=== PATIENT | male | born 1940 | race Caucasian/White ===

== ENCOUNTER 2021-07-27 19:09 | Inpatient (IN) | payer BC, MEDICARE ==
[2021-07-27] MEDS ORDERED: SODIUM CHLORIDE 0.9% 1,000 ML IV STA (19:29)
--- NOTE | 2021-07-27 19:34 | ED ---
General Adult HPI - General Chief complaint: Nausea/Vomiting/Diarrhea Stated complaint: Covid +, SOB Time Seen by Provider: 07/27/21 19:10 Source: patient, RN notes reviewed, old records reviewed Mode of arrival: wheelchair Limitations: no limitations - History of Present Illness Initial comments: This is an 81-year-old male who presents emergency Department stating that the last 6 days had severe diarrhea. Patient states that yesterday he was tested for cocaine was positive. Patient does state he somewhat short of breath but is not that bad. Patient denies any chest pain or palpitations. Patient denies any numbness weakness. Patient denies headache patient states he feels generally weak but there is no focal weakness. Patient denies any l ightheadedness or dizziness. Patient denies any abdominal pain. Patient has any nausea vomiting. Patient denies any recent injury or trauma. - Related Data Home Medications Medication Instructions Recorded Confirmed Aspirin EC [Ecotrin Low Dose] 81 mg PO DAILY 07/27/21 07/27/21 Ezetimibe [Zetia] 10 mg PO DIRECTED 07/27/21 07/27/21 Fenofibric Acid (Choline) 135 mg PO DIRECTED 07/27/21 07/27/21 [Trilipix] Ferrous Sulfate [Feosol] 325 mg PO DAILY 07/27/21 07/27/21 Flecainide [Tambocor] 50 mg PO DIRECTED 07/27/21 07/27/21 Furosemide [Lasix] 40 mg PO DIRECTED 07/27/21 07/27/21 Isosorbide Mononitrate ER [Imdur] 60 mg PO DIRECTED 07/27/21 07/27/21 NIFEdipine [NIFEdipine ER] 90 mg PO DIRECTED 07/27/21 07/27/21 Potassium Chloride [Potassium 8 meq PO DIRECTED 07/27/21 07/27/21 Chloride ER] Rosuvastatin Calcium [Crestor] 40 mg PO DIRECTED 07/27/21 07/27/21 carvediloL [Coreg] 3.125 mg PO DIRECTED 07/27/21 07/27/21 lisinopriL [Zestril] 40 mg PO DIRECTED 07/27/21 07/27/21 Allergies Allergy/AdvReac Type Severity Reaction Status Date / Time sulfamethoxazole Allergy Unknown Verified 07/27/21 20:36 [From Bactrim] tetanus and diphtheria Allergy Swelling Verified 07/27/21 20:36 toxoids at injection site(arm) trimethoprim [From Bactrim] Allergy Unknown Verified 07/27/21 20:36 Review of Systems ROS Statement: Those systems with pertinent positive or pertinent negative responses have been documented in the HPI. ROS Other: All systems not noted in ROS Statement are negative. Past Medical History Past Medical History: Cancer, COPD, Hypertension Additional Past Medical History / Comment(s): bladder cancer History of Any Multi-Drug Resistant Organisms: None Reported Past Surgical History: No Surgical Hx Reported, Cholecystectomy Additional Past Surgical History / Comment(s): bladder Past Psychological History: No Psychological Hx Reported Smoking Status: Current every day smoker, Never smoker Past Alcohol Use History: Occasional Past Drug Use History: None Reported General Exam - General Exam Comments Initial Comments: GENERAL: Patient is well-developed and well-nourished. Patient is nontoxic and well- hydrated and is in mild distress. ENT: Neck is soft and supple. No significant lymphadenopathy is noted. Oropharynx is clear. Moist mucous membranes. Neck has full range of motion without eliciting any pain. EYES: The sclera were anicteric and conjunctiva were pink and moist. Extraocular movements were intact and pupils were equal round and reactive to light. Eyelids were unremarkable. PULMONARY: Unlabored respirations. Good breath sounds bilaterally. No audible rales rhonchi or wheezing was noted. CARDIOVASCULAR: There is a regular rate and rhythm without any murmurs gallops or rubs. ABDOMEN: Soft and nontender with normal bowel sounds. SKIN: Skin is clear with no lesions or rashes and otherwise unremarkable. NEUROLOGIC: Patient is alert and oriented x3. Cranial nerves II through XII are grossly intact. Motor and sensory are also intact. Normal speech, volume and content. Symmetrical smile. MUSCULOSKELETAL: Normal extremities with adequate strength and full range of motion. LYMPHATICS: No significant lymphadenopathy is noted PSYCHIATRIC: Normal psychiatric evaluation. Limitations: no limitations Course Vital Signs 07/27/21 07/27/21 19:10 19:36 Temperature 97.8 F Pulse Rate 58 L 112 H Respiratory 18 19 Rate Blood Pressure 77/48 98/75 O2 Sat by Pulse 90 L 95 Oximetry Medical Decision Making - Medical Decision Making EKG shows atrial fibrillation at a rate of 110 bpm QRS is 99 Q-T intervals 345 QTC is 410. G shows no ST segment elevation or depression Chest x-ray shows no acute abnormality. Patient's urine was from the urostomy bag is difficult to assess whether he has an acute infection so he was given a prophylactic dose of Rocephin. Patient's troponin was elevated so repeat that and consult cardiology. Patient's kidney function showed a creatinine of over 4 he does say he has some kidney issues but we have no previous lab results for this patient. Patient also tested positive for COVID. I spoke with Dr. Carrillo agreed to admit the patient admitted the patient wrote admitting orders. - Lab Data Result diagrams: 07/27/21 19:34 07/27/21 19:34 Lab Results 07/27/21 07/27/21 07/27/21 Range/Units 19:34 19:34 19:34 WBC 5.7 (3.8-10.6) k/uL RBC 3.85 L (4.30-5.90) m/uL Hgb 12.0 L (13.0-17.5) gm/dL Hct 38.1 L (39.0-53.0) % MCV 99.0 (80.0-100.0) fL MCH 31.1 (25.0-35.0) pg MCHC 31.4 (31.0-37.0) g/dL RDW 14.9 (11.5-15.5) % Plt Count 256 (150-450) k/uL MPV 9.3 Neutrophils % 78 % Lymphocytes % 14 % Monocytes % 5 % Eosinophils % 0 % Basophils % 0 % Neutrophils # 4.5 (1.3-7.7) k/uL Lymphocytes # 0.8 L (1.0-4.8) k/uL Monocytes # 0.3 (0-1.0) k/uL Eosinophils # 0.0 (0-0.7) k/uL Basophils # 0.0 (0-0.2) k/uL PT 12.7 H (9.0-12.0) sec INR 1.2 H (<1.2) APTT 31.1 H (22.0-30.0) sec Sample Site ABG pH (7.35-7.45) ABG pCO2 (35-45) mmHg ABG pO2 (83-108) mmHg ABG HCO3 (21-25) mmol/L ABG Total CO2 (19-24) mmol/L ABG O2 Saturation (94-97) % ABG Base Excess mmol/L Vin Test FiO2 % Sodium (137-145) mmol/L Potassium (3.5-5.1) mmol/L Chloride (98-107) mmol/L Carbon Dioxide (22-30) mmol/L Anion Gap mmol/L BUN (9-20) mg/dL Creatinine (0.66-1.25) mg/dL Est GFR (CKD-EPI)AfAm (>60 ml/min/1.73 sqM) Est GFR (CKD-EPI)NonAf (>60 ml/min/1.73 sqM) Glucose (74-99) mg/dL Plasma Lactic Acid Ramin (0.7-2.0) mmol/L Calcium (8.4-10.2) mg/dL Magnesium (1.6-2.3) mg/dL Total Bilirubin (0.2-1.3) mg/dL AST (17-59) U/L ALT (4-49) U/L Alkaline Phosphatase (38-126) U/L Troponin I (0.000-0.034) ng/mL Total Protein (6.3-8.2) g/dL Albumin (3.5-5.0) g/dL Urine Color Light [place] Urine Appearance Turbid (Clear) Urine pH 8.5 H (5.0-8.0) Ur Specific [place]vin 1.017 (1.001-1.035) Urine Protein 2+ H (Negative) Urine Glucose (UA) Negative (Negative) Urine Ketones Negative (Negative) Urine Blood Moderate H (Negative) Urine Nitrite Negative (Negative) Urine Bilirubin Negative (Negative) Urine Urobilinogen <2.0 (<2.0) mg/dL Ur Leukocyte Esterase Large H (Negative) Urine RBC >182 H (0-5) /hpf Urine WBC 89 H (0-5) /hpf Ur Squamous Epith Cells 1 (0-4) /hpf Urine Bacteria Moderate H (None) /hpf Urine Mucus Few H (None) /hpf Coronavirus (PCR) (Not Detectd) 07/27/21 07/27/21 07/27/21 Range/Units 19:34 19:34 19:34 WBC (3.8-10.6) k/uL RBC (4.30-5.90) m/uL Hgb (13.0-17.5) gm/dL Hct (39.0-53.0) % MCV (80.0-100.0) fL MCH (25.0-35.0) pg MCHC (31.0-37.0) g/dL RDW (11.5-15.5) % Plt Count (150-450) k/uL MPV Neutrophils % % Lymphocytes % % Monocytes % % Eosinophils % % Basophils % % Neutrophils # (1.3-7.7) k/uL Lymphocytes # (1.0-4.8) k/uL Monocytes # (0-1.0) k/uL Eosinophils # (0-0.7) k/uL Basophils # (0-0.2) k/uL PT (9.0-12.0) sec INR (<1.2) APTT (22.0-30.0) sec Sample Site ABG pH (7.35-7.45) ABG pCO2 (35-45) mmHg ABG pO2 (83-108) mmHg ABG HCO3 (21-25) mmol/L ABG Total CO2 (19-24) mmol/L ABG O2 Saturation (94-97) % ABG Base Excess mmol/L Vin Test FiO2 % Sodium 138 (137-145) mmol/L Potassium 5.0 (3.5-5.1) mmol/L Chloride 107 (98-107) mmol/L Carbon Dioxide 20 L (22-30) mmol/L Anion Gap 11 mmol/L BUN 93 H (9-20) mg/dL Creatinine 4.34 H (0.66-1.25) mg/dL Est GFR (CKD-EPI)AfAm 14 (>60 ml/min/1.73 sqM) Est GFR (CKD-EPI)NonAf 12 (>60 ml/min/1.73 sqM) Glucose 109 H (74-99) mg/dL Plasma Lactic Acid Ramin 2.0 (0.7-2.0) mmol/L Calcium 9.5 (8.4-10.2) mg/dL Magnesium 1.9 (1.6-2.3) mg/dL Total Bilirubin 0.7 (0.2-1.3) mg/dL AST 96 H (17-59) U/L ALT 19 (4-49) U/L Alkaline Phosphatase 50 (38-126) U/L Troponin I 0.212 H* (0.000-0.034) ng/mL Total Protein 6.6 (6.3-8.2) g/dL Albumin 3.3 L (3.5-5.0) g/dL Urine Color Urine Appearance (Clear) Urine pH (5.0-8.0) Ur Specific [place]vin (1.001-1.035) Urine Protein (Negative) Urine Glucose (UA) (Negative) Urine Ketones (Negative) Urine Blood (Negative) Urine Nitrite (Negative) Urine Bilirubin (Negative) Urine Urobilinogen (<2.0) mg/dL Ur Leukocyte Esterase (Negative) Urine RBC (0-5) /hpf Urine WBC (0-5) /hpf Ur Squamous Epith Cells (0-4) /hpf Urine Bacteria (None) /hpf Urine Mucus (None) /hpf Coronavirus (PCR) (Not Detectd) 07/27/21 07/27/21 Range/Units 19:34 20:40 WBC (3.8-10.6) k/uL RBC (4.30-5.90) m/uL Hgb (13.0-17.5) gm/dL Hct (39.0-53.0) % MCV (80.0-100.0) fL MCH (25.0-35.0) pg MCHC (31.0-37.0) g/dL RDW (11.5-15.5) % Plt Count (150-450) k/uL MPV Neutrophils % % Lymphocytes % % Monocytes % % Eosinophils % % Basophils % % Neutrophils # (1.3-7.7) k/uL Lymphocytes # (1.0-4.8) k/uL Monocytes # (0-1.0) k/uL Eosinophils # (0-0.7) k/uL Basophils # (0-0.2) k/uL PT (9.0-12.0) sec INR (<1.2) APTT (22.0-30.0) sec Sample Site rbrach ABG pH 7.39 (7.35-7.45) ABG pCO2 28 L (35-45) mmHg ABG pO2 75 L (83-108) mmHg ABG HCO3 17 L (21-25) mmol/L ABG Total CO2 18 L (19-24) mmol/L ABG O2 Saturation 94.8 (94-97) % ABG Base Excess -8.2 mmol/L Vin Test Yes FiO2 21 % Sodium (137-145) mmol/L Potassium (3.5-5.1) mmol/L Chloride (98-107) mmol/L Carbon Dioxide (22-30) mmol/L Anion Gap mmol/L BUN (9-20) mg/dL Creatinine (0.66-1.25) mg/dL Est GFR (CKD-EPI)AfAm (>60 ml/min/1.73 sqM) Est GFR (CKD-EPI)NonAf (>60 ml/min/1.73 sqM) Glucose (74-99) mg/dL Plasma Lactic Acid Ramin (0.7-2.0) mmol/L Calcium (8.4-10.2) mg/dL Magnesium (1.6-2.3) mg/dL Total Bilirubin (0.2-1.3) mg/dL AST (17-59) U/L ALT (4-49) U/L Alkaline Phosphatase (38-126) U/L Troponin I (0.000-0.034) ng/mL Total Protein (6.3-8.2) g/dL Albumin (3.5-5.0) g/dL Urine Color Urine Appearance (Clear) Urine pH (5.0-8.0) Ur Specific [place] (1.001-1.035) Urine Protein (Negative) Urine Glucose (UA) (Negative) Urine Ketones (Negative) Urine Blood (Negative) Urine Nitrite (Negative) Urine Bilirubin (Negative) Urine Urobilinogen (<2.0) mg/dL Ur Leukocyte Esterase (Negative) Urine RBC (0-5) /hpf Urine WBC (0-5) /hpf Ur Squamous Epith Cells (0-4) /hpf Urine Bacteria (None) /hpf Urine Mucus (None) /hpf Coronavirus (PCR) Detected A (Not Detectd) Disposition Clinical Impression: COVID-19, Acute diarrhea, Acute kidney injury, Elevated troponin, Urinary tract infection Disposition: ADMITTED IP TO THIS HOSP Referrals: Maurice Santana MD [Primary Care Provider] - 1-2 days Time of Disposition: 21:50
[2021-07-27 20:02] LABS: Basophils % (A) 0 %; Eosinophils % (A) 0 %; HCT 38.1 % (39.0-53.0); Lymphocytes # (A) 0.8 k/uL (1.0-4.8); Lymphocytes % (A) 14 %; MCH 31.1 pg (25.0-35.0); MCHC 31.4 g/dL (31.0-37.0); Mean Platelet Volume 9.3; Monocytes # (A) 0.3 k/uL (0-1.0); Monocytes % (A) 5 %; Neutrophils # (A) 4.5 k/uL (1.3-7.7); Neutrophils % (A) 78 %; Platelet Count 256 k/uL (150-450); RBC 3.85 m/uL (4.30-5.90); RDW 14.9 % (11.5-15.5); WBC 5.7 k/uL (3.8-10.6)
[2021-07-27 20:11] LABS: INR 1.2 (<1.2); Partial Thromboplastin Time 31.1 sec (22.0-30.0); Prothrombin Time 12.7 sec (9.0-12.0)
[2021-07-27 20:19] LABS: Albumin 3.3 g/dL (3.5-5.0); Calcium 9.5 mg/dL (8.4-10.2); Magnesium 1.9 mg/dL (1.6-2.3); Total Bilirubin 0.7 mg/dL (0.2-1.3); Total Protein 6.6 g/dL (6.3-8.2)
[2021-07-27 20:44] LABS: ABG Base Excess -8.2 mmol/L; ABG HCO3 17 mmol/L (21-25); ABG Oxygen Saturation 94.8 % (94-97); ABG PCO2 28 mmHg (35-45); ABG PH 7.39 (7.35-7.45); ABG PO2 75 mmHg (83-108); ABG TCO2 18 mmol/L (19-24); Allen Test Performed? Yes
--- NOTE | 2021-07-27 20:55 | XR ---
EXAMINATION TYPE: XR chest 2V DATE OF EXAM: 07/27/2021 8:13 PM COMPARISON:None TECHNIQUE: Frontal and lateral views of the chest. CLINICAL INDICATION:Male, 81 years old with history of Weakness; FINDINGS: Lungs/Pleura: There is no evidence of pleural effusion, focal consolidation, or pneumothorax. Pulmonary vascularity: Unremarkable. Heart/mediastinum: Cardiomediastinal silhouette is unremarkable. Aortic valve repair. Musculoskeletal: No acute osseous pathology. Midline sternotomy wires are noted and stable. IMPRESSION: No acute cardiopulmonary disease/process.
[2021-07-27 21:10] LABS: Appearance,Urine Turbid (Clear); Bacteria,Urine Moderate /hpf; Bilirubin,Urine Negative (Negative); Blood,Urine Moderate (Negative); Color,Urine Light Orange; Glucose,Urine (UA) Negative (Negative); Ketones,Urine Negative (Negative); Leukocyte Esterase,Urine Large (Negative); Mucus,Urine Few /hpf; Nitrite,Urine Negative (Negative); PH, Urine 8.5 (5.0-8.0); Protein,Urine 2+ (Negative); RBC,Urine >182 /hpf (0-5); Specific Gravity,Urine 1.017 (1.001-1.035); Squamous Epithelial Cell,Urine 1 /hpf (0-4); Urobilinogen,Urine <2.0 mg/dL (<2.0); WBC,Urine 89 /hpf (0-5)
[2021-07-27] MEDS ORDERED: cefTRIAXone IN SWFI 1,000 MG/10 ML SYRINGE IVP STA (21:40)
[2021-07-27] MEDS ORDERED: NITROGLYCERIN SL TABS 0.4 MG TAB SUBLINGUAL PRN (21:51)
[2021-07-27] MEDS ORDERED: DIPHENOX-ATROP 2.5-0.025 MG 1 EACH TAB PO STA (21:52)
[2021-07-27] MEDS: SODIUM CHLORIDE 0.9% 1,000 ML IV SCH (22:26)
[2021-07-28] MEDS ORDERED: ASPIRIN 325 MG TAB PO SCH (09:00)
--- NOTE | 2021-07-28 09:26 | P.CRDCN ---
History of Present Illness History of present illness: HISTORY OF PRESENTING ILLNESS Patient is pleasant 82-year-old old with history of coronary artery disease status post CABG, valvular heart disease status post bioprosthetic aortic valve replacement apparently at [facility], hypertension, hyperlipidemia, chronic kidney disease stage III per patient, tobacco abuse, peripheral arterial disease status post peripheral stenting who presents secondary to "feeling sick" with some diarrhea and feeling somewhat feverish and had a home COVID-19 test which was positive and therefore presented to emergency department. He was found to have new acute kidney injury with creatinine in the force and minimally elevated troponins 0.2, 0.18, 0.178. He denies any actual chest pain or pressure. He denies any actual shortness breath however has not been doing much. He was also found to be in A. fib with borderline heart rates in the 90s to 100s. He states he has never been on any anticoagulation however Eliquis does sound somewhat familiar. 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 REVIEW OF SYSTEMS At the time of my exam: CONSTITUTIONAL: Denies fever or chills. CARDIOVASCULAR: Denies chest pain, +mild shortness of breath, no orthopnea, PND or palpitations. RESPIRATORY: Denies cough. GASTROINTESTINAL: Denies abdominal pain, diarrhea, constipation, nausea or vomiting. MUSCULOSKELETAL: Denies myalgias. NEUROLOGIC: Denies numbness, tingling or weakness. ENDOCRINE: Denies fatigue, weight change, polydipsia or polyurina. GENITOURINARY: Denies burning, hematuria or urgency with micturation. HEMATOLOGIC: Denies history of anemia or bleeding. PHYSICAL EXAMINATION Vital signs reviewed. CONSTITUTIONAL: No apparent distress. HEENT: Head is normocephalic. Pupils are equal, round. Sclerae anicteric. Mucous membranes of the mouth are moist. No JVD. No carotid bruit. CHEST EXAMINATION: Lungs are clear to auscultation. No chest wall tenderness is noted on palpation or with deep breathing. HEART EXAMINATION: Regular rate and rhythm. S1, S2 heard. No murmurs, gallops or rub. ABDOMEN: Soft, nontender. Positive bowel sounds. EXTREMITIES: 2+ peripheral pulses, no lower extremity edema and no calf tenderness. NEUROLOGIC EXAMINATION: Patient is awake, alert and oriented x3. ASSESSMENT 1. Non-STEMI, likely type II mechanism related to acute kidney injury and COVID-19 2. COVID-19 3. Acute kidney injury 4. Coronary artery disease status post CABG 5. History of bioprosthetic aortic valve replacement 6. Persistent atrial fibrillation 7. Hypertension 8. PAD status post prior intervention 9. Tobacco abuse PLAN Patient's main presentation appears related to COVID-19 infection. We will check 2-D echo. Recommended anticoagulation and we will start a heparin drip and continue to trend troponins. Further recommendations to follow. Tobacco cessation recommended. Past Medical History Past Medical History: Cancer, COPD, Hypertension Additional Past Medical History / Comment(s): bladder cancer History of Any Multi-Drug Resistant Organisms: None Reported Past Surgical History: No Surgical Hx Reported, Cholecystectomy Additional Past Surgical History / Comment(s): bladder Past Psychological History: No Psychological Hx Reported Smoking Status: Current every day smoker, Never smoker Past Alcohol Use History: Occasional Past Drug Use History: None Reported Medications and Allergies Home Medications Medication Instructions Recorded Confirmed Type Aspirin EC [Ecotrin Low Dose] 81 mg PO DAILY 07/27/21 07/27/21 History Ezetimibe [Zetia] 10 mg PO DIRECTED 07/27/21 07/27/21 History Fenofibric Acid (Choline) 135 mg PO DIRECTED 07/27/21 07/27/21 History [Trilipix] Ferrous Sulfate [Feosol] 325 mg PO DAILY 07/27/21 07/27/21 History Flecainide [Tambocor] 50 mg PO DIRECTED 07/27/21 07/27/21 History Furosemide [Lasix] 40 mg PO DIRECTED 07/27/21 07/27/21 History Isosorbide Mononitrate ER [Imdur] 60 mg PO DIRECTED 07/27/21 07/27/21 History NIFEdipine [NIFEdipine ER] 90 mg PO DIRECTED 07/27/21 07/27/21 History Potassium Chloride [Potassium 8 meq PO DIRECTED 07/27/21 07/27/21 History Chloride ER] Rosuvastatin Calcium [Crestor] 40 mg PO DIRECTED 07/27/21 07/27/21 History carvediloL [Coreg] 3.125 mg PO DIRECTED 07/27/21 07/27/21 History lisinopriL [Zestril] 40 mg PO DIRECTED 07/27/21 07/27/21 History Allergies Allergy/AdvReac Type Severity Reaction Status Date / Time sulfamethoxazole Allergy Unknown Verified 07/27/21 20:36 [From Bactrim] tetanus and diphtheria Allergy Swelling Verified 07/27/21 20:36 toxoids at injection site(arm) trimethoprim [From Bactrim] Allergy Unknown Verified 07/27/21 20:36 Physical Exam Vitals: Vital Signs Temp Pulse Resp BP Pulse Ox 07/28/21 08:40 92 18 96/60 07/28/21 07:29 90 18 96 07/28/21 06:18 98 18 107/68 94 L 07/28/21 05:00 90 20 107/64 94 L 07/28/21 03:26 89 18 108/64 95 07/28/21 02:00 85 18 105/79 95 07/27/21 22:13 89 23 93/67 93 L 07/27/21 19:36 112 H 19 98/75 95 07/27/21 19:10 97.8 F 58 L 18 77/48 90 L Intake and Output 07/27/21 07/28/21 07/28/21 22:59 06:59 14:59 Other: Weight 86.183 kg Results 07/27/21 19:34 07/27/21 19:34 Cardiac Enzymes 07/27/21 07/27/21 07/27/21 Range/Units 19:34 19:34 22:12 AST 96 H (17-59) U/L Troponin I 0.212 H* 0.182 H* (0.000-0.034) ng/mL 07/28/21 Range/Units 00:57 AST (17-59) U/L Troponin I 0.178 H* (0.000-0.034) ng/mL Coagulation 07/27/21 Range/Units 19:34 PT 12.7 H (9.0-12.0) sec APTT 31.1 H (22.0-30.0) sec CBC 07/27/21 Range/Units 19:34 WBC 5.7 (3.8-10.6) k/uL RBC 3.85 L (4.30-5.90) m/uL Hgb 12.0 L (13.0-17.5) gm/dL Hct 38.1 L (39.0-53.0) % Plt Count 256 (150-450) k/uL Comprehensive Metabolic Panel 07/27/21 Range/Units 19:34 Sodium 138 (137-145) mmol/L Potassium 5.0 (3.5-5.1) mmol/L Chloride 107 (98-107) mmol/L Carbon Dioxide 20 L (22-30) mmol/L BUN 93 H (9-20) mg/dL Creatinine 4.34 H (0.66-1.25) mg/dL Glucose 109 H (74-99) mg/dL Calcium 9.5 (8.4-10.2) mg/dL AST 96 H (17-59) U/L ALT 19 (4-49) U/L Alkaline Phosphatase 50 (38-126) U/L Total Protein 6.6 (6.3-8.2) g/dL Albumin 3.3 L (3.5-5.0) g/dL Current Medications Generic Name Dose Route Start Last Admin Trade Name Freq PRN Reason Stop Dose Admin Aspirin 325 mg 07/28/21 09:00 Aspirin 325 Mg Tab PO DAILY ALONDRA Sodium Chloride 1,000 mls @ 100 mls/hr 07/27/21 22:00 07/27/21 22:26 Saline 0.9% IV 100 mls/hr .Q10H ALONDRA Administration Nitroglycerin 0.4 mg 07/27/21 21:51 Nitroglycerin Sl Tabs 0.4 Mg Tab SUBLINGUAL Q5M PRN Chest Pain Intake and Output 07/27/21 07/28/21 07/28/21 22:59 06:59 14:59 Other: Weight 86.183 kg 07/27/21 19:34 07/27/21 19:34
[2021-07-28] MEDS ORDERED: HEPARIN SODIUM 1,000 UN/ML (10ML VL) IV ONE (09:27)
[2021-07-28] MEDS ORDERED: HEPARIN SODIUM 1,000 UN/ML (10ML VL) IV PRN (09:27)
[2021-07-28 09:53] LABS: Basophils % (A) 0 %; Eosinophils % (A) 1 %; HCT 36.7 % (39.0-53.0); HGB 11.4 gm/dL (13.0-17.5); Hypochromasia Moderate; Lymphocytes # (A) 0.7 k/uL (1.0-4.8); Lymphocytes % (A) 16 %; MCH 31.6 pg (25.0-35.0); Macrocytosis Slight; Mean Platelet Volume 9.4; Monocytes # (A) 0.1 k/uL (0-1.0); Monocytes % (A) 3 %; Neutrophils # (A) 3.6 k/uL (1.3-7.7); Neutrophils % (A) 79 %; Platelet Count 219 k/uL (150-450); RBC 3.59 m/uL (4.30-5.90); RDW 14.7 % (11.5-15.5); WBC 4.6 k/uL (3.8-10.6)
[2021-07-28 10:10] LABS: Chol/HDL Ratio 7.45 Ratio; LDL Cholesterol,Calculated 29.1 mg/dL (0.0-131.0)
[2021-07-28] MEDS: HEPARIN SOD,PORK IN 0.45% NACL 25,000 UNIT in 0.45% NACL 1 250ML.BAG IV SCH (10:28)
[2021-07-28 10:55] LABS: INR 1.2 (<1.2); Partial Thromboplastin Time 33.2 sec (22.0-30.0); Prothrombin Time 12.6 sec (9.0-12.0)
--- NOTE | 2021-07-28 11:32 | ECHOF ---
Referral Reason:elevated troponin. MEASUREMENTS -------- HEIGHT: 180.3 cm WEIGHT: 86.2 kg BP: 107/68 RVIDd: 3.7 cm (< 3.3) IVSd: 1.4 cm (0.6 - 1.1) LVIDd: 3.7 cm (3.9 - 5.3) LVPWd: 1.5 cm (0.6 - 1.1) IVSs: 1.8 cm LVIDs: 2.7 cm LVPWs: 1.8 cm Ao Diam: 3.6 cm (2.0 - 3.7) MV EXCURSION: 17.189 mm (> 18.000) MV EF SLOPE: 63 mm/s (70 - 150) EPSS: 0.6 cm RAP: 5.00 mmHg RVSP: 29.43 mmHg FINDINGS -------- Sinus rhythm. This was a technically difficult study with suboptimal views. The left ventricular size is normal. There is moderate concentric left ventricular hypertrophy. O verall left ventricular systolic function is low-normal with, an EF between 50 - 55 %. The right ventricle is mildly enlarged. The left atrium was not well visualized. The right atrium was not well visualized. 5.0mg of Lumason was utilized for enhancement of images The aortic valve was not well visualized. The mitral valve was not well visualized. Mild tricuspid regurgitation present. There is no evidence of pulmonary hypertension. The right v entricular systolic pressure, as measured by Doppler, is 29.43mmHg. Echo free space represents a pericardial fat pad. There is no pericardial effusion. CONCLUSIONS -------- 1. This was a technically difficult study with suboptimal views. 2. The left ventricular size is normal. 3. There is moderate concentric left ventricular hypertrophy. 4. Overall left ventricular systolic function is low-normal with, an EF between 50 - 55 %. 5. The right ventricle is mildly enlarged. 6. Mild tricuspid regurgitation present. PIPE FOREMAN: Richelle Johnson RD
[2021-07-28] MEDS: SODIUM CHLORIDE 0.9% 1,000 ML IV SCH ×2 (14:52→16:48)
[2021-07-28] MEDS ORDERED: CYCLOBENZAPRINE 10 MG TAB PO PRN (15:18)
[2021-07-28] MEDS ORDERED: NITROGLYCERIN SL TABS 0.4 MG TAB SUBLINGUAL PRN (15:18)
[2021-07-28] MEDS ORDERED: ACETAMINOPHEN TAB 325 MG TAB PO PRN (15:20)
[2021-07-28] MEDS ORDERED: ALPRAZolam 0.25 MG TAB PO PRN (15:20)
[2021-07-28] MEDS ORDERED: ONDANSETRON 4 MG/2 ML VIAL IVP PRN (15:20)
[2021-07-28] MEDS ORDERED: MELATONIN 3 MG TABLET PO PRN (15:20)
[2021-07-28] MEDS ORDERED: NALOXONE 0.4 MG/ML 1 ML VIAL IV PRN (15:20)
[2021-07-28] MEDS ORDERED: LACTULOSE 20 GM/30 ML CUP PO PRN (15:20)
[2021-07-28] MEDS ORDERED: CALCIUM CARBONATE 500 MG CHEWABLE PO PRN (15:20)
--- NOTE | 2021-07-28 18:24 | P.HPIM ---
History of Present Illness H&P Date: 07/28/21 Chief Complaint: Weak and tired This is a 81-year-old patient who follows with Dr. Leandro Kitchen. Chronic stable medical conditions include atrial fibrillation, CAD with a history of bypass, COPD, hypertension, bladder cancer with urostomy, chronic kidney disease stage III. Does live alone. Patient been having 6 days of significant vomiting and diarrhea. He was feeling exhausted by yesterday. Was been able to get up. Appetite has been poor. He tested positive for COVID-19 yesterday. She has been vaccinated. No loss of taste or smell. Patient last diarrhea was yesterday. Feeling a bit better after getting fluids in the ER. No fever no chills. No headaches. No chest pain. Denies shortness of breath. Review of systems: GEN.: Tired decreased appetite EYES: None HEENT: None NECK: None RESPIRATORY: None CARDIOVASCULAR: None GASTROINTESTINAL: As above GENITOURINARY: Urostomy bag MUSCULOSKELETAL: Muscle weakness LYMPHATICS: None HEMATOLOGICAL: None PSYCHIATRY: None NEUROLOGICAL: None Past medical history to include: Atrial fibrillation, CAD with bypass in 2004, COPD, hypertension, CK D stage III, bladder cancer with urostomy, Social history: Patient smoked for 64 years average about 2 packs a day stopped 3 years ago. Alcohol occasionally. 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 Family history: Kidney disease Physical examination: VITAL SIGNS: 97.8, 58, 18, 77/48, 90% room air upon presentation GENERAL: BMI 26.5, laying in bed, awake, tired. EYES: Pupils equal. Conjunctiva normal. HEENT: External appearance of nose and ears normal, oral cavity dry mucous membranes. NECK: JVD not raised; masses not palpable. HEART: First and second heart sounds are normal; no edema. LUNGS: Respiratory rate normal; decreased breath sounds. ABDOMEN: Soft, nontender, liver spleen not palpable, no masses palpable. Urostomy bag PSYCH: Alert and oriented x3; mood and affect tiredl. MUSCULOSKELETAL:No Clubbing/cyanosis;muscles-grossly intact NEUROLOGICAL: Cranial nerves grossly intact; no facial asymmetry, power and sensation grossly intact. LYMPHATICS: No lymph nodes palpable in the axilla and neck INVESTIGATIONS, reviewed in the clinical context: July 28: White count 4.6 hemoglobin 9.4 platelets 219 LDL 29.1 Troponin I: 0.212, 0.182, 0.178 ABG: PO2 is 75 Admission labs: Potassium 5 BUN 93 creatinine 4.34 UA positive for leukoesterase, WBC, RBC Coronavirus [PCR]: Detected EKG tracing personally reviewed by me-normal sinus rhythm, atrial fibrillation with a rate of 110 Chest x-ray film personally reviewed by me-hyperinflation. Some infiltrate. 2-D echocardiogram. Moderate concentric LVH. EF 50-55%. Assessment and plan: -Acute severe nausea vomiting diarrhea secondary to COVID-19 Full liquid diet. Symptomatic treatment. Last diarrhea episode was yesterday. Last time vomited was late last night. IV fluids -COVID-19, and a previously vaccinated patient Initial pulse ox was 90%. We'll start dexamethasone. -Positive troponin likely due to hemodynamic mismatch No clinical evidence of acute coronary syndrome -Persistent atrial fibrillation with rapid ventricular rate Telemetry. IV heparin. Flecainide. Coreg 3.125 mg twice a day. -CAD with a prior history of bypass in 2004 Aspirin, Lipitor, Zetia, Coreg -Hypotensive from volume loss from nausea vomiting diarrhea decreased appetite Hold off VENKAT inhibitor. -COPD in a previous smoker Ventolin 2 puffs 4 times a day -Hyperlipidemia Crestor 40 mg daily -Normocytic anemia likely of chronic kidney disease -IV heparin monitoring Follow PTT -Chronic kidney disease stage III at baseline Follow renal function -Acute kidney injury, prerenal from nausea vomiting diarrhea IV fluids Home medications resumed. Hold lisinopril. IV heparin. Cardiology, nephrolog y, pulmonary consulted. Full liquid diet. IV fluids. Repeat labs. Dexamethasone. Vitamin C. Vitamin D. Zinc. Fall precautions. Given the complexity and severity of patient's condition expect the patient to be in the hospital at least for 2 overnights Past Medical History Past Medical History: Atrial Fibrillation, Coronary Artery Disease (CAD), Cance r, COPD, Hypertension, Pneumonia, Renal Disease Additional Past Medical History / Comment(s): Bladder cancer with urostomy, bronchitis, bilateral lower leg edema, CKD III, past UTI, low iron, History of Any Multi-Drug Resistant Organisms: None Reported Past Surgical History: Bladder Surgery, Cholecystectomy, Coronary Bypass/CABG Additional Past Surgical History / Comment(s): Cystectomy/urostomy, colonoscopy, 3V CABG/bovine valve in 2004, bilateral blepharoplasties, bilateral cataract removals. Past Anesthesia/Blood Transfusion Reactions: No Reported Reaction Additional Past Anesthesia/Blood Transfusion Reaction / Comment(s): Pt has received blood in past without reaction. Smoking Status: Former smoker - Past Family History Father History Unknown: Yes Additional Family Medical History / Comment(s): Father drowned. Mother Family Medical History: Renal Disease Additional Family Medical History / Comment(s): Mother of renal failure. Medications and Allergies Home Medications Medication Instructions Recorded Confirmed Type Aspirin EC [Ecotrin Low Dose] 81 mg PO DAILY 07/27/21 07/27/21 History Ezetimibe [Zetia] 10 mg PO DAILY 07/27/21 07/28/21 History Fenofibric Acid (Choline) 135 mg PO DAILY 07/27/21 07/28/21 History [Trilipix] Ferrous Sulfate [Feosol] 325 mg PO DAILY 07/27/21 07/27/21 History Flecainide [Tambocor] 50 mg PO BID 07/27/21 07/28/21 History Furosemide [Lasix] 40 mg PO BID 07/27/21 07/28/21 History Isosorbide Mononitrate ER [Imdur] 60 mg PO DAILY 07/27/21 07/28/21 History Potassium Chloride [Potassium 8 meq PO DAILY 07/27/21 07/28/21 History Chloride ER] Rosuvastatin Calcium [Crestor] 40 mg PO DAILY 07/27/21 07/28/21 History carvediloL [Coreg] 3.125 mg PO BID 07/27/21 07/28/21 History lisinopriL [Zestril] 40 mg PO DAILY 07/27/21 07/28/21 History Albuterol Inhaler [Ventolin Hfa 2 puff INHALATION RT-Q4H PRN 07/28/21 07/28/21 History Inhaler] Cyclobenzaprine [Flexeril] 10 mg PO BID PRN 07/28/21 07/28/21 History Fluticasone Nasal [place] [Flonase 1 spray EA NOSTRIL DAILY 07/28/21 07/28/21 History Nasal [place]] Ipratropium-Albuterol Nebulize 3 ml INHALATION RT-Q6H PRN 07/28/21 07/28/21 History [Duoneb 0.5 mg-3 mg/3 ml Soln] NIFEdipine XL [Procardia XL] 60 mg PO DAILY 07/28/21 07/28/21 History Nitroglycerin Sl Tabs [Nitrostat] 0.4 mg SUBLINGUAL Q5M PRN 07/28/21 07/28/21 History Allergies Allergy/AdvReac Type Severity Reaction Status Date / Time sulfamethoxazole Allergy Unknown Verified 07/27/21 20:36 [From Bactrim] tetanus and diphtheria Allergy Swelling Verified 07/27/21 20:36 toxoids at injection site(arm) trimethoprim [From Bactrim] Allergy Unknown Verified 07/27/21 20:36 Physical Exam Vitals: Vital Signs Temp Pulse Resp BP Pulse Ox 07/28/21 08:40 92 18 96/60 07/28/21 07:29 90 18 96 07/28/21 06:18 98 18 107/68 94 L 07/28/21 05:00 90 20 107/64 94 L 07/28/21 03:26 89 18 108/64 95 07/28/21 02:00 85 18 105/79 95 07/27/21 22:13 89 23 93/67 93 L 07/27/21 19:36 112 H 19 98/75 95 07/27/21 19:10 97.8 F 58 L 18 77/48 90 L Intake and Output 07/27/21 07/28/21 07/28/21 22:59 06:59 14:59 Other: Weight 86.183 kg 86.183 kg Results CBC & Chem 7: 07/28/21 06:46 07/27/21 19:34 Labs: Abnormal Lab Results - Last 24 Hours (Table) 07/27/21 07/27/21 07/27/21 Range/Units 19:34 19:34 19:34 RBC 3.85 L (4.30-5.90) m/uL Hgb 12.0 L (13.0-17.5) gm/dL Hct 38.1 L (39.0-53.0) % MCV (80.0-100.0) fL Lymphocytes # 0.8 L (1.0-4.8) k/uL PT 12.7 H (9.0-12.0) sec INR 1.2 H (<1.2) APTT 31.1 H (22.0-30.0) sec ABG pCO2 (35-45) mmHg ABG pO2 (83-108) mmHg ABG HCO3 (21-25) mmol/L ABG Total CO2 (19-24) mmol/L Carbon Dioxide (22-30) mmol/L BUN (9-20) mg/dL Creatinine (0.66-1.25) mg/dL Glucose (74-99) mg/dL AST (17-59) U/L Troponin I (0.000-0.034) ng/mL Albumin (3.5-5.0) g/dL Triglycerides (0.00-149.00) mg/dL VLDL Cholesterol, Calc (5.00-40.00) mg/dL HDL Cholesterol (40.00-60.00) mg/dL Urine pH 8.5 H (5.0-8.0) Urine Protein 2+ H (Negative) Urine Blood Moderate H (Negative) Ur Leukocyte Esterase Large H (Negative) Urine RBC >182 H (0-5) /hpf Urine WBC 89 H (0-5) /hpf Urine Bacteria Moderate H (None) /hpf Urine Mucus Few H (None) /hpf Coronavirus (PCR) (Not Detectd) 07/27/21 07/27/21 07/27/21 Range/Units 19:34 19:34 19:34 RBC (4.30-5.90) m/uL Hgb (13.0-17.5) gm/dL Hct (39.0-53.0) % MCV (80.0-100.0) fL Lymphocytes # (1.0-4.8) k/uL PT (9.0-12.0) sec INR (<1.2) APTT (22.0-30.0) sec ABG pCO2 (35-45) mmHg ABG pO2 (83-108) mmHg ABG HCO3 (21-25) mmol/L ABG Total CO2 (19-24) mmol/L Carbon Dioxide 20 L (22-30) mmol/L BUN 93 H (9-20) mg/dL Creatinine 4.34 H (0.66-1.25) mg/dL Glucose 109 H (74-99) mg/dL AST 96 H (17-59) U/L Troponin I 0.212 H* (0.000-0.034) ng/mL Albumin 3.3 L (3.5-5.0) g/dL Triglycerides (0.00-149.00) mg/dL VLDL Cholesterol, Calc (5.00-40.00) mg/dL HDL Cholesterol (40.00-60.00) mg/dL Urine pH (5.0-8.0) Urine Protein (Negative) Urine Blood (Negative) Ur Leukocyte Esterase (Negative) Urine RBC (0-5) /hpf Urine WBC (0-5) /hpf Urine Bacteria (None) /hpf Urine Mucus (None) /hpf Coronavirus (PCR) Detected A (Not Detectd) 07/27/21 07/27/21 07/28/21 Range/Units 20:40 22:12 00:57 RBC (4.30-5.90) m/uL Hgb (13.0-17.5) gm/dL Hct (39.0-53.0) % MCV (80.0-100.0) fL Lymphocytes # (1.0-4.8) k/uL PT (9.0-12.0) sec INR (<1.2) APTT (22.0-30.0) sec ABG pCO2 28 L (35-45) mmHg ABG pO2 75 L (83-108) mmHg ABG HCO3 17 L (21-25) mmol/L ABG Total CO2 18 L (19-24) mmol/L Carbon Dioxide (22-30) mmol/L BUN (9-20) mg/dL Creatinine (0.66-1.25) mg/dL Glucose (74-99) mg/dL AST (17-59) U/L Troponin I 0.182 H* 0.178 H* (0.000-0.034) ng/mL Albumin (3.5-5.0) g/dL Triglycerides (0.00-149.00) mg/dL VLDL Cholesterol, Calc (5.00-40.00) mg/dL HDL Cholesterol (40.00-60.00) mg/dL Urine pH (5.0-8.0) Urine Protein (Negative) Urine Blood (Negative) Ur Leukocyte Esterase (Negative) Urine RBC (0-5) /hpf Urine WBC (0-5) /hpf Urine Bacteria (None) /hpf Urine Mucus (None) /hpf Coronavirus (PCR) (Not Detectd) 07/28/21 07/28/21 Range/Units 06:46 06:46 RBC 3.59 L (4.30-5.90) m/uL Hgb 11.4 L (13.0-17.5) gm/dL Hct 36.7 L (39.0-53.0) % MCV 102.0 H (80.0-100.0) fL Lymphocytes # 0.7 L (1.0-4.8) k/uL PT (9.0-12.0) sec INR (<1.2) APTT (22.0-30.0) sec ABG pCO2 (35-45) mmHg ABG pO2 (83-108) mmHg ABG HCO3 (21-25) mmol/L ABG Total CO2 (19-24) mmol/L Carbon Dioxide (22-30) mmol/L BUN (9-20) mg/dL Creatinine (0.66-1.25) mg/dL Glucose (74-99) mg/dL AST (17-59) U/L Troponin I (0.000-0.034) ng/mL Albumin (3.5-5.0) g/dL Triglycerides 251.00 H (0.00-149.00) mg/dL VLDL Cholesterol, Calc 50.20 H (5.00-40.00) mg/dL HDL Cholesterol 12.30 L (40.00-60.00) mg/dL Urine pH (5.0-8.0) Urine Protein (Negative) Urine Blood (Negative) Ur Leukocyte Esterase (Negative) Urine RBC (0-5) /hpf Urine WBC (0-5) /hpf Urine Bacteria (None) /hpf Urine Mucus (None) /hpf Coronavirus (PCR) (Not Detectd) Microbiology - Last 24 Hours (Table) 07/27/21 19:34 Urine Culture - Preliminary Urine,Clean Catch Thrombosis Risk Factor Assmnt - Choose All That Apply Any of the Below Risk Factors Present?: Yes Each Factor Represents 1 point: Abnormal pulmonary function (COPD), Obesity (BMI >25) Other Risk Factors: Yes Each Risk Factor Represents 2 Points: Malignancy Each Risk Factor Represents 3 Points: Age 75 years or older Other congenital or acquired thrombophilia - If yes, enter type in comment: No Thrombosis Risk Factor Assessment Total Risk Factor Score: 7 Thrombosis Risk Factor Assessment Level: High Risk
[2021-07-28] MEDS: dexAMETHasone 2 MG TAB PO SCH (18:33)
[2021-07-28] MEDS: ZINC SULFATE 220 MG CAP PO SCH (18:33)
[2021-07-28] MEDS: CHOLECALCIFEROL 125 MCG (5000 IU) TABLET PO SCH (18:33)
[2021-07-28] MEDS: ASCORBIC ACID 500 MG TAB PO SCH (18:33)
[2021-07-28] MEDS: FLECAINIDE 50 MG TAB PO SCH (20:53)
[2021-07-28] MEDS: carvediloL 3.125 MG TAB PO SCH (20:53)
[2021-07-29] MEDS: SODIUM CHLORIDE 0.9% 1,000 ML IV SCH ×2 (06:05→09:22)
[2021-07-29 06:41] LABS: Basophils % (A) 1 %; Eosinophils % (A) 0 %; HCT 36.4 % (39.0-53.0); HGB 11.3 gm/dL (13.0-17.5); Hypochromasia Moderate; Lymphocytes # (A) 0.3 k/uL (1.0-4.8); Lymphocytes % (A) 7 %; MCH 31.9 pg (25.0-35.0); MCHC 30.9 g/dL (31.0-37.0); MCV 103.1 fL (80.0-100.0); Macrocytosis Slight; Mean Platelet Volume 9.2; Monocytes # (A) 0.2 k/uL (0-1.0); Monocytes % (A) 5 %; Neutrophils % (A) 86 %; Platelet Count 217 k/uL (150-450); RBC 3.53 m/uL (4.30-5.90); RDW 14.2 % (11.5-15.5); WBC 3.5 k/uL (3.8-10.6)
[2021-07-29 06:58] LABS: Calcium 9.2 mg/dL (8.4-10.2)
[2021-07-29 06:59] LABS: INR 1.2 (<1.2); Prothrombin Time 12.7 sec (9.0-12.0)
[2021-07-29] MEDS ORDERED: lisinopriL 20 MG TAB PO SCH (09:00)
[2021-07-29] MEDS: ATORVASTATIN 80 MG TAB PO SCH (09:16)
[2021-07-29] MEDS: ASPIRIN 81 MG PO SCH (09:16)
[2021-07-29] MEDS: CHOLECALCIFEROL 125 MCG (5000 IU) TABLET PO SCH (09:16)
[2021-07-29] MEDS: EZETIMIBE 10 MG TAB PO SCH (09:16)
[2021-07-29] MEDS: ASCORBIC ACID 500 MG TAB PO SCH ×2 (09:16→19:55)
[2021-07-29] MEDS: ISOSORBIDE MONONITRATE ER 60 MG TAB.ER.24H PO SCH (09:16)
[2021-07-29] MEDS: FLECAINIDE 50 MG TAB PO SCH ×2 (09:16→19:56)
[2021-07-29] MEDS: dexAMETHasone 2 MG TAB PO SCH (09:16)
[2021-07-29] MEDS: ZINC SULFATE 220 MG CAP PO SCH (09:16)
[2021-07-29] MEDS: carvediloL 3.125 MG TAB PO SCH ×2 (09:16→19:56)
[2021-07-29 09:53] VITALS: BMI 26.4
[2021-07-29] MEDS: HEPARIN SOD,PORK IN 0.45% NACL 25,000 UNIT in 0.45% NACL 1 250ML.BAG IV SCH (11:22)
--- NOTE | 2021-07-29 11:51 | P.NPCON ---
History of Present Illness - Reason for Consult acute renal failure - History of Present Illness Patient is a 81-year-old male who was admitted to the hospital with complaints of increased weakness. Patient admitted to having had diarrhea for 5-6 days prior to admission. He denied any significant urinary symptoms. Patient did test positive for COVID-19 PCR. Serum creatinine was 4.3 for on admission on 07/27/2021 and it is down to 2.2 today. Blood pressure was low with systolic as low as 93 mmHg. Currently maintained on IV fluids. Patient reports good urine output Patient was on VENKAT inhibitor's. Currently on hold. Troponin was elevated at 0.2 and 0.18 to the adult being followed by cardiology and maintained on IV heparin Review of Systems As per HPI, other systems negative Past Medical History Past Medical History: Atrial Fibrillation, Coronary Artery Disease (CAD), Cancer, COPD, Hypertension, Pneumonia, Renal Disease Additional Past Medical History / Comment(s): Bladder cancer with urostomy, bro nchitis, bilateral lower leg edema, CKD III, past UTI, low iron, History of Any Multi-Drug Resistant Organisms: None Reported Past Surgical History: Bladder Surgery, Cholecystectomy, Coronary Bypass/CABG Additional Past Surgical History / Comment(s): Cystectomy/urostomy, colonoscopy, 3V CABG/bovine valve in 2004, bilateral blepharoplasties, bilateral cataract removals. Past Anesthesia/Blood Transfusion Reactions: No Reported Reaction Additional Past Anesthesia/Blood Transfusion Reaction / Comment(s): Pt has received blood in past without reaction. Smoking Status: Former smoker - Past Family History Father History Unknown: Yes Additional Family Medical History / Comment(s): Father drowned. Mother Family Medical History: Renal Disease Additional Family Medical History / Comment(s): Mother of renal failure. Medications and Allergies Home Medications Medication Instructions Recorded Confirmed Type Aspirin EC [Ecotrin Low Dose] 81 mg PO DAILY 07/27/21 07/27/21 History Ezetimibe [Zetia] 10 mg PO DAILY 07/27/21 07/28/21 History Fenofibric Acid (Choline) 135 mg PO DAILY 07/27/21 07/28/21 History [Trilipix] Ferrous Sulfate [Feosol] 325 mg PO DAILY 07/27/21 07/27/21 History Flecainide [Tambocor] 50 mg PO BID 07/27/21 07/28/21 History Furosemide [Lasix] 40 mg PO BID 07/27/21 07/28/21 History Isosorbide Mononitrate ER [Imdur] 60 mg PO DAILY 07/27/21 07/28/21 History Potassium Chloride [Potassium 8 meq PO DAILY 07/27/21 07/28/21 History Chloride ER] Rosuvastatin Calcium [Crestor] 40 mg PO DAILY 07/27/21 07/28/21 History carvediloL [Coreg] 3.125 mg PO BID 07/27/21 07/28/21 History lisinopriL [Zestril] 40 mg PO DAILY 07/27/21 07/28/21 History Albuterol Inhaler [Ventolin Hfa 2 puff INHALATION RT-Q4H PRN 07/28/21 07/28/21 History Inhaler] Cyclobenzaprine [Flexeril] 10 mg PO BID PRN 07/28/21 07/28/21 History Fluticasone Nasal [place] [Flonase 1 spray EA NOSTRIL DAILY 07/28/21 07/28/21 History Nasal [place]] Ipratropium-Albuterol Nebulize 3 ml INHALATION RT-Q6H PRN 07/28/21 07/28/21 History [Duoneb 0.5 mg-3 mg/3 ml Soln] NIFEdipine XL [Procardia XL] 60 mg PO DAILY 07/28/21 07/28/21 History Nitroglycerin Sl Tabs [Nitrostat] 0.4 mg SUBLINGUAL Q5M PRN 07/28/21 07/28/21 History Allergies Allergy/AdvReac Type Severity Reaction Status Date / Time sulfamethoxazole Allergy Unknown Verified 07/27/21 20:36 [From Bactrim] tetanus and diphtheria Allergy Swelling Verified 07/27/21 20:36 toxoids at injection site(arm) trimethoprim [From Bactrim] Allergy Unknown Verified 07/27/21 20:36 Physical Exam Vitals: Vital Signs Temp Pulse Resp BP Pulse Ox 07/29/21 08:00 98.1 F 94 18 116/64 94 L 07/29/21 04:00 98.0 F 98 18 120/67 93 L 07/29/21 01:14 104 H 17 07/29/21 00:00 97.8 F 104 H 17 116/74 92 L 07/28/21 20:00 97.3 F L 102 H 18 118/73 94 L 07/28/21 14:45 97.9 F 89 18 116/66 95 Intake and Output 07/28/21 07/29/21 07/29/21 22:59 06:59 14:59 Intake Total 69.333 360 Output Total 113 396 8340 Balance -330.667 -300 -640 Intake: Intake, IV Titration 69.333 Amount Heparin Sod,Pork in 0.45% 69.333 NaCl 25,000 unit In 0.45 % NaCl 1 250ml.bag @ 11. 603 UNITS/KG/HR 10 mls/hr IV .Q24H ALONDRA Rx#: [id number] Oral 360 Output: Urine 050 479 0697 Other: Voiding Method Diaper Ileal Conduit (Left) Ileal Conduit (Left) Ileal Conduit (Left) # Bowel Movements 0 Weight 86.183 kg Patient is awake comfortable. He is not in any acute distress. 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 Acute kidney injury mostly prerenal and low blood pressure and currently improving with IV hydration. Serum creatinine is down from 4.3-2.2 mg/dL today. Continue with IV fluids and encourage increase oral intake. Continue to hold off on VENKAT inhibitor's for now. 2. Pyuria likely urinary tract infection. Urine culture is pending. 3. Positive COVID-19 PCR with no significant respiratory symptoms and no significant abnormalities noted on chest x-ray. Currently on room air with O2 sats 92-94%. 4. Non-ST elevation NH in followed by cardiology, maintained on IV heparin. 5. Metabolic acidosis non-gap associated with renal failure and IV fluids 6. Nausea vomiting and diarrhea secondary to gastroenteritis possibly related to COVID-19 infection, currently improved Plan: Continue with IV fluids Add oral sodium bicarb Change IV fluids to Ringer lactate Repeat labs in a.m. Avoid nephrotoxic agents Follow-up on urine cultures Check ultrasound of the kidneys
[2021-07-29] MEDS: LACTATED RINGERS 1,000 ML IV SCH ×2 (12:57→19:45)
--- NOTE | 2021-07-29 13:03 | US ---
EXAMINATION TYPE: US kidneys/renal and bladder DATE OF EXAM: 07/29/2021 COMPARISON: NONE CLINICAL HISTORY: rf. Abnormal labs, pt states known renal disease EXAM MEASUREMENTS: Right Kidney: 10.2 x 4.1 x 3.8 cm Left Kidney: 11.4 x 5.3 x 4.3 cm Right Kidney: Abnormal appearance with echogenic appearing renal collecting system, dilated renal pel vis, mild hydro Left Kidney: Cortical thinning with echogenic collecting system, lobular contour, no evidence of hydr o Bladder: Non-vis, pt has urinary bag outside of body IMPRESSION: Consistent with underlying medical renal disease, possible medullary sponge kidney, there is right-si ded hydronephrosis
--- NOTE | 2021-07-29 14:55 | P.PN ---
Subjective HISTORY OF PRESENTING ILLNESS Patient is pleasant 82-year-old old with history of coronary artery disease status post CABG, valvular heart disease status post bioprosthetic aortic valve replacement apparently at [facility], hypertension, hyperlipidemia, chronic kidney disease stage III per patient, tobacco abuse, peripheral arterial disease status post peripheral stenting who presents secondary to "feeling sick" with some diarrhea and feeling somewhat feverish and had a home COVID-19 test which was positive and therefore presented to emergency department. He was found to have new acute kidney injury with creatinine in the force and minimally elevated troponins 0.2, 0.18, 0.178. He denies any actual chest pain or pressure. He denies any actual shortness breath however has not been doing much. He was also found to be in A. fib with borderline heart rates in the 90s to 100s. He states he has never been on any anticoagulation however Eliquis does sound somewhat familiar. He is also been on flexion night however has not followed with a dx board operator in a few years. 07/29/2021 Patient seen and examined at bedside, no distress. He denies any chest pain or shortness of breath. Last reviewed, troponin 0.2, 0.18, 0.17. Echocardiogram revealed EF of 5055 percent, moderate concentric LVH, mild tricuspid regurgitation He's currently maintained on aspirin 81 mg daily, atorvastatin 80 mg daily, carvedilol 3.125 mg twice a day, Zetia , Flecainide 50 mg twice a day, Imdur 60 mg daily, nifedipine 60 mg daily Telemetry, patient in atrial fibrillation with controlled ventricular rates. Labs, sodium 141, potassium 5.0, BUN 70, serum creatinine 2.2 Ultrasound the abdomen revealed medical renal disease, possible medullary sponge kidney.There is right-sided mild hydronephrosis PHYSICAL EXAMINATION Vital signs reviewed. CONSTITUTIONAL: No apparent distress. HEENT: Neck supple No JVD. No carotid bruit. CHEST EXAMINATION: Lungs are diminished to auscultation. HEART EXAMINATION: Irregular rate and rhythm. S1, S2 heard. No murmurs, gallops or rub. ABDOMEN: Soft, nontender. Positive bowel sounds. EXTREMITIES: 2+ peripheral pulses, no lower extremity edema and no calf tenderness. NEUROLOGIC EXAMINATION: Patient is awake, alert and oriented x3. ASSESSMENT 1. Non-STEMI, likely type II mechanism related to acute kidney injury and COVID-19 2. COVID-19 3. Acute kidney injury 4. Coronary artery disease status post CABG 5. History of bioprosthetic aortic valve replacement 6. Persistent atrial fibrillation 7. Hypertension 8. PAD status post prior intervention 9. Tobacco abuse PLAN Patient's main presentation appears related to COVID-19 infection. Recommended anticoagulation, transition to Eliquis 2.5mg BID, stop IV heparin Continue statin, carvedilol, Zetia, flecainide, imdur and nifedipine Nephrology following Tobacco cessation recommended. Continue cardiac telemetry Further recommendations to follow. Objective - Vital Signs Vital signs: Vital Signs Temp 97.7 F 07/29/21 12:00 Pulse 94 07/29/21 12:59 Resp 18 07/29/21 12:59 BP 108/61 07/29/21 12:00 Pulse Ox 94 L 07/29/21 12:12 Intake & Output 07/28/21 07/29/21 07/29/21 18:59 06:59 18:59 Intake Total 69.333 360 Output Total 372 883 1176 Balance -330.667 -300 -640 Weight 86.183 kg 86.183 kg Intake: Intake, IV Titration 69.333 Amount Heparin Sod,Pork in 0.45% 69.333 NaCl 25,000 unit In 0.45 % NaCl 1 250ml.bag @ 11. 603 UNITS/KG/HR 10 mls/hr IV .Q24H ALONDRA Rx#: [id number] Oral 360 Output: Urine 236 [id number] [id number] Other: Voiding Method Ileal Conduit (Right) Ileal Conduit (Left) Ileal Conduit (Left) # Bowel Movements 0 - Labs CBC & Chem 7: 07/29/21 05:56 07/29/21 05:56 Labs: Abnormal Lab Results - Last 24 Hours (Table) 07/28/21 07/29/21 07/29/21 Range/Units 15:38 00:30 05:56 WBC 3.5 L (3.8-10.6) k/uL RBC 3.53 L (4.30-5.90) m/uL Hgb 11.3 L (13.0-17.5) gm/dL Hct 36.4 L (39.0-53.0) % MCV 103.1 H (80.0-100.0) fL MCHC 30.9 L (31.0-37.0) g/dL Lymphocytes # 0.3 L (1.0-4.8) k/uL PT (9.0-12.0) sec INR (<1.2) APTT 120.4 H* 65.4 H (22.0-30.0) sec D-Dimer (<0.60) mg/L FEU Chloride (98-107) mmol/L Carbon Dioxide (22-30) mmol/L BUN (9-20) mg/dL Creatinine (0.66-1.25) mg/dL Glucose (74-99) mg/dL 07/29/21 07/29/21 Range/Units 05:56 05:56 WBC (3.8-10.6) k/uL RBC (4.30-5.90) m/uL Hgb (13.0-17.5) gm/dL Hct (39.0-53.0) % MCV (80.0-100.0) fL MCHC (31.0-37.0) g/dL Lymphocytes # (1.0-4.8) k/uL PT 12.7 H (9.0-12.0) sec INR 1.2 H (<1.2) APTT (22.0-30.0) sec D-Dimer 0.83 H (<0.60) mg/L FEU Chloride 118 H (98-107) mmol/L Carbon Dioxide 18 L (22-30) mmol/L BUN 70 H (9-20) mg/dL Creatinine 2.22 H (0.66-1.25) mg/dL Glucose 133 H (74-99) mg/dL Microbiology - Last 24 Hours (Table) 07/29/21 01:00 Wound Culture - Preliminary Abdomen
--- NOTE | 2021-07-29 16:51 | P.CNPUL ---
History of Present Illness Reason for consult: cough, pulmonary embolism, other Chief complaint: Shortness of breath History of present illness: Patient is a 81-year-old male who presented emergency department with ongoing complaint of diarrhea one day prior to coming into the hospital he was found for COVID-19 patient has the on and off exertional shortness of breath, and denies any hemoptysis denies any NSAID fever or chills, Past medical history significant for chronic atrial fibrillation, coronary artery disease status post CABG, COPD hypertension bladder cancer, status post urostomy, chronic kidney disease stage III, currently patient is being treated with the diabetic control anticoagulants, patient is a high risk for the complication with REM doesn't wear due to acute on chronic kidney disease currently being treated with dexamethasone 6 mg daily Review of Systems All systems: negative Past Medical History Past Medical History: Atrial Fibrillation, Coronary Artery Disease (CAD), Cancer, COPD, Hypertension, Pneumonia, Renal Disease Additional Past Medical History / Comment(s): Bladder cancer with urostomy, bronchitis, bilateral lower leg edema, CKD III, past UTI, low iron, History of Any Multi-Drug Resistant Organisms: None Reported Past Surgical History: Bladder Surgery, Cholecystectomy, Coronary Bypass/CABG Additional Past Surgical History / Comment(s): Cystectomy/urostomy, colonoscopy, 3V CABG/bovine valve in 2004, bilateral blepharoplasties, bilateral cataract removals. Past Anesthesia/Blood Transfusion Reactions: No Reported Reaction Additional Past Anesthesia/Blood Transfusion Reaction / Comment(s): Pt has received blood in past without reaction. Smoking Status: Former smoker - Past Family History Father History Unknown: Yes Additional Family Medical History / Comment(s): Father drowned. Mother Family Medical History: Renal Disease Additional Family Medical History / Comment(s): Mother of renal failure. Medications and Allergies Home Medications Medication Instructions Recorded Confirmed Type Aspirin EC [Ecotrin Low Dose] 81 mg PO DAILY 07/27/21 07/27/21 History Ezetimibe [Zetia] 10 mg PO DAILY 07/27/21 07/28/21 History Fenofibric Acid (Choline) 135 mg PO DAILY 07/27/21 07/28/21 History [Trilipix] Ferrous Sulfate [Feosol] 325 mg PO DAILY 07/27/21 07/27/21 History Flecainide [Tambocor] 50 mg PO BID 07/27/21 07/28/21 History Furosemide [Lasix] 40 mg PO BID 07/27/21 07/28/21 History Isosorbide Mononitrate ER [Imdur] 60 mg PO DAILY 07/27/21 07/28/21 History Potassium Chloride [Potassium 8 meq PO DAILY 07/27/21 07/28/21 History Chloride ER] Rosuvastatin Calcium [Crestor] 40 mg PO DAILY 07/27/21 07/28/21 History carvediloL [Coreg] 3.125 mg PO BID 07/27/21 07/28/21 History lisinopriL [Zestril] 40 mg PO DAILY 07/27/21 07/28/21 History Albuterol Inhaler [Ventolin Hfa 2 puff INHALATION RT-Q4H PRN 07/28/21 07/28/21 History Inhaler] Cyclobenzaprine [Flexeril] 10 mg PO BID PRN 07/28/21 07/28/21 History Fluticasone Nasal Junior [Flonase 1 spray EA NOSTRIL DAILY 07/28/21 07/28/21 History Nasal Junior] Ipratropium-Albuterol Nebulize 3 ml INHALATION RT-Q6H PRN 07/28/21 07/28/21 History [Duoneb 0.5 mg-3 mg/3 ml Soln] NIFEdipine XL [Procardia XL] 60 mg PO DAILY 07/28/21 07/28/21 History Nitroglycerin Sl Tabs [Nitrostat] 0.4 mg SUBLINGUAL Q5M PRN 07/28/21 07/28/21 History Allergies Allergy/AdvReac Type Severity Reaction Status Date / Time sulfamethoxazole Allergy Unknown Verified 07/27/21 20:36 [From Bactrim] tetanus and diphtheria Allergy Swelling Verified 07/27/21 20:36 toxoids at injection site(arm) trimethoprim [From Bactrim] Allergy Unknown Verified 07/27/21 20:36 Physical Exam Vitals: Vital Signs Temp Pulse Resp BP Pulse Ox 07/29/21 12:59 94 18 07/29/21 12:12 94 L 07/29/21 12:00 97.7 F 92 18 108/61 95 07/29/21 08:00 98.1 F 94 18 116/64 94 L 07/29/21 04:00 98.0 F 98 18 120/67 93 L 07/29/21 01:14 104 H 17 07/29/21 00:00 97.8 F 104 H 17 116/74 92 L 07/28/21 20:00 97.3 F L 102 H 18 118/73 94 L Intake and Output 07/29/21 07/29/21 07/29/21 06:59 14:59 22:59 Intake Total 360 Output Total 300 1000 Balance -300 -640 Intake: Oral 360 Output: Urine 300 1000 Other: Voiding Method Ileal Conduit (Left) Ileal Conduit (Left) # Bowel Movements 0 Weight 86.183 kg - Constitutional General appearance: average body habitus, disheveled - EENT Eyes: EOMI, PERRLA Ears: bilateral: normal - Neck Neck: normal ROM Carotids: bilateral: upstroke normal - Respiratory Respiratory: bilateral: diminished - Cardiovascular Rhythm: regular Heart sounds: normal: S1, S2 - Neurologic Neurologic: CNII-XII intact - Musculoskeletal Musculoskeletal: generalized weakness - Psychiatric Psychiatric: A&O x's 3, appropriate affect Results - Laboratory Findings CBC and BMP: 07/29/21 05:56 07/29/21 05:56 ABG ABG pH 7.39 (7.35-7.45) 07/27/21 20:40 ABG pCO2 28 mmHg (35-45) L 07/27/21 20:40 ABG pO2 75 mmHg (83-108) L 07/27/21 20:40 ABG O2 Saturation 94.8 % (94-97) 07/27/21 20:40 PT/INR, D-dimer PT 12.7 sec (9.0-12.0) H 07/29/21 05:56 INR 1.2 (<1.2) H 07/29/21 05:56 D-Dimer 0.83 mg/L FEU (<0.60) H 07/29/21 05:56 Abnormal lab findings: Abnormal Labs 07/27/21 07/27/21 07/27/21 19:34 19:34 19:34 WBC RBC 3.85 L Hgb 12.0 L Hct 38.1 L MCV MCHC Lymphocytes # 0.8 L PT 12.7 H INR 1.2 H APTT 31.1 H D-Dimer ABG pCO2 ABG pO2 ABG HCO3 ABG Total CO2 Chloride Carbon Dioxide BUN Creatinine Glucose AST Troponin I Albumin Triglycerides VLDL Cholesterol, Calc HDL Cholesterol Urine pH 8.5 H Urine Protein 2+ H Urine Blood Moderate H Ur Leukocyte Esterase Large H Urine RBC >182 H Urine WBC 89 H Urine Bacteria Moderate H Urine Mucus Few H Coronavirus (PCR) 07/27/21 07/27/21 07/27/21 19:34 19:34 19:34 WBC RBC Hgb Hct MCV MCHC Lymphocytes # PT INR APTT D-Dimer ABG pCO2 ABG pO2 ABG HCO3 ABG Total CO2 Chloride Carbon Dioxide 20 L BUN 93 H Creatinine 4.34 H Glucose 109 H AST 96 H Troponin I 0.212 H* Albumin 3.3 L Triglycerides VLDL Cholesterol, Calc HDL Cholesterol Urine pH Urine Protein Urine Blood Ur Leukocyte Esterase Urine RBC Urine WBC Urine Bacteria Urine Mucus Coronavirus (PCR) Detected A 07/27/21 07/27/21 07/28/21 20:40 22:12 00:57 WBC RBC Hgb Hct MCV MCHC Lymphocytes # PT INR APTT D-Dimer ABG pCO2 28 L ABG pO2 75 L ABG HCO3 17 L ABG Total CO2 18 L Chloride Carbon Dioxide BUN Creatinine Glucose AST Troponin I 0.182 H* 0.178 H* Albumin Triglycerides VLDL Cholesterol, Calc HDL Cholesterol Urine pH Urine Protein Urine Blood Ur Leukocyte Esterase Urine RBC Urine WBC Urine Bacteria Urine Mucus Coronavirus (PCR) 07/28/21 07/28/21 07/28/21 06:46 06:46 09:56 WBC RBC 3.59 L Hgb 11.4 L Hct 36.7 L MCV 102.0 H MCHC Lymphocytes # 0.7 L PT 12.6 H INR 1.2 H APTT 33.2 H D-Dimer ABG pCO2 ABG pO2 ABG HCO3 ABG Total CO2 Chloride Carbon Dioxide BUN Creatinine Glucose AST Troponin I Albumin Triglycerides 251.00 H VLDL Cholesterol, Calc 50.20 H HDL Cholesterol 12.30 L Urine pH Urine Protein Urine Blood Ur Leukocyte Esterase Urine RBC Urine WBC Urine Bacteria Urine Mucus Coronavirus (PCR) 07/28/21 07/29/21 07/29/21 15:38 00:30 05:56 WBC 3.5 L RBC 3.53 L Hgb 11.3 L Hct 36.4 L MCV 103.1 H MCHC 30.9 L Lymphocytes # 0.3 L PT INR APTT 120.4 H* 65.4 H D-Dimer ABG pCO2 ABG pO2 ABG HCO3 ABG Total CO2 Chloride Carbon Dioxide BUN Creatinine Glucose AST Troponin I Albumin Triglycerides VLDL Cholesterol, Calc HDL Cholesterol Urine pH Urine Protein Urine Blood Ur Leukocyte Esterase Urine RBC Urine WBC Urine Bacteria Urine Mucus Coronavirus (PCR) 07/29/21 07/29/21 05:56 05:56 WBC RBC Hgb Hct MCV MCHC Lymphocytes # PT 12.7 H INR 1.2 H APTT D-Dimer 0.83 H ABG pCO2 ABG pO2 ABG HCO3 ABG Total CO2 Chloride 118 H Carbon Dioxide 18 L BUN 70 H Creatinine 2.22 H Glucose 133 H AST Troponin I Albumin Triglycerides VLDL Cholesterol, Calc HDL Cholesterol Urine pH Urine Protein Urine Blood Ur Leukocyte Esterase Urine RBC Urine WBC Urine Bacteria Urine Mucus Coronavirus (PCR) - Diagnostic Findings Chest x-ray: report reviewed, image reviewed (Admit chest x-ray no active infiltrate up pathology and 5) Assessment and Plan Assessment: COVID-19 infection COPD not in exacerbation Chronic atrial fibrillation Non-STEMI Acute on chronic renal failure Ongoing nausea vomiting and diarrhea likely related to COVID-19 patient has been on liquid diet Coronary artery disease Hypertension and hypertensive on hold including VENKAT inhibitor's Dyslipidemia Plan: Continue deep breathing sense incentive spirometry Continue Decadron 6 mg daily Patient is not a candidate for IV REMdesivi due to acute on chronic renal failure Continue anticoagulation with direct anticoagulants and monitor clinical course closely We'll follow closely Time with Patient: Greater than 30
[2021-07-29] MEDS: SODIUM BICARBONATE TAB 650 MG TAB PO SCH (19:55)
[2021-07-29] MEDS: APIXABAN 2.5 MG TABLET PO SCH (19:56)
--- NOTE | 2021-07-29 19:57 | P.PN ---
Progress Note - Text Progress Note Date: 07/29/21 Chief Complaint: Weak and tired This is a 81-year-old patient who follows with Dr. Leandro Kitchen. Chronic stable medical conditions include atrial fibrillation, CAD with a history of bypass, COPD, hypertension, bladder cancer with urostomy, chronic kidney disease stage III. Does live alone. Patient been having 6 days of significant vomiting and diarrhea. He was feeling exhausted by yesterday. Was been able to get up. Appetite has been poor. He tested positive for COVID-19 yesterday. She has been vaccinated. No loss of taste or smell. Patient last diarrhea was yesterday. Feeling a bit better after getting fluids in the ER. No fever no chills. No headaches. No chest pain. Denies shortness of breath. Admitted with severe nausea vomiting diarrhea secondary to COVID-19. Treated symptomatically. Troponin leak due to hemodynamic mismatch. Hypotensive. Given IV fluids. Acute kidney injury. Also atrial fibrillation with uncontrolled rate. July 29: Laying in bed. Feels a bit less diet. No further diarrhea. No nausea vomiting. Did eat some breakfast. In atrial fibrillation rate controlled. Active Medications Acetaminophen (Acetaminophen Tab 325 Mg Tab) 650 mg PO Q6HR PRN PRN Reason: Mild Pain or Fever > 100.5 Alprazolam (Alprazolam 0.25 Mg Tab) 0.25 mg PO Q6HR PRN PRN Reason: Anxiety Apixaban (Apixaban 2.5 Mg Tablet) 2.5 mg PO BID [facility]; Protocol Ascorbic Acid (Ascorbic Acid 500 Mg Tab) 500 mg PO BID [facility] Last Admin: 07/29/21 09:16 Dose: 500 mg Documented by: Aspirin (Aspirin 81 Mg) 81 mg PO DAILY [facility] Last Admin: 07/29/21 09:16 Dose: 81 mg Documented by: Atorvastatin Calcium (Atorvastatin 80 Mg Tab) 80 mg PO DAILY [facility] Last Admin: 07/29/21 09:16 Dose: 80 mg Documented by: Calcium Carbonate/Glycine (Calcium Carbonate 500 Mg Chewable) 1,000 mg PO Q4HR PRN PRN Reason: Dyspepsia Carvedilol (Carvedilol 3.125 Mg Tab) 3.125 mg PO BID [facility] Last Admin: 07/29/21 09:16 Dose: 3.125 mg Documented by: Cholecalciferol (Cholecalciferol 125 Mcg (5000 Iu) Tablet) 125 mcg PO DAILY [facility] Last Admin: 07/29/21 09:16 Dose: 125 mcg Documented by: Cyclobenzaprine HCl (Cyclobenzaprine 10 Mg Tab) 10 mg PO BID PRN PRN Reason: Muscle Spasm Dexamethasone (Dexamethasone 2 Mg Tab) 6 mg PO DAILY [facility] Last Admin: 07/29/21 09:16 Dose: 6 mg Documented by: Ezetimibe (Ezetimibe 10 Mg Tab) 10 mg PO DAILY [facility] Last Admin: 07/29/21 09:16 Dose: 10 mg Documented by: Flecainide Acetate (Flecainide 50 Mg Tab) 50 mg PO BID [facility] Last Admin: 07/29/21 09:16 Dose: 50 mg Documented by: Lactated Ringer's (Lactated Ringers) 1,000 mls @ 100 mls/hr IV .Q10H [facility] Last Admin: 07/29/21 19:45 Dose: 100 mls/hr Documented by: Isosorbide Mononitrate (Isosorbide Mononitrate Er 60 Mg Tab.Er.24h) 60 mg PO DAILY [facility] Last Admin: 07/29/21 09:16 Dose: 60 mg Documented by: Lactulose (Lactulose 20 Gm/30 Ml Cup) 20 gm PO DAILY PRN PRN Reason: Constipation Melatonin (Melatonin 3 Mg Tablet) 3 mg PO HS PRN PRN Reason: Insomnia Naloxone HCl (Naloxone 0.4 Mg/Ml 1 Ml Vial) 0.2 mg IV Q2M PRN PRN Reason: Opioid Reversal Nifedipine (Nifedipine Xl 60 Mg Tab.Er.24) 60 mg PO DAILY [facility] Last Admin: 07/29/21 09:16 Dose: 60 mg Documented by: Nitroglycerin (Nitroglycerin Sl Tabs 0.4 Mg Tab) 0.4 mg SUBLINGUAL Q5M PRN PRN Reason: Chest Pain Ondansetron HCl (Ondansetron 4 Mg/2 Ml Vial) 4 mg IVP Q8HR PRN PRN Reason: Nausea And Vomiting Sodium Bicarbonate (Sodium Bicarbonate Tab 650 Mg Tab) 650 mg PO BID [facility] Zinc Sulfate (Zinc Sulfate 220 Mg Cap) 220 mg PO DAILY [facility] Last Admin: 07/29/21 09:16 Dose: 220 mg Documented by: Past medical history to include: Atrial fibrillation, CAD with bypass in 2004, COPD, hypertension, CK D stage III, bladder cancer with urostomy, Social history: Patient smoked for 64 years average about 2 packs a day stopped 3 years ago. Alcohol occasionally. 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 Family history: Kidney disease Physical examination: VITAL SIGNS: 97.7, 92, 18, 108/61, 95% room air GENERAL: Laying in bed, awake, a bit less tired PSYCH: Alert and oriented x3; mood and affect tiredl. NEUROLOGICAL: Cranial nerves grossly intact; no facial asymmetry, moving all 4 limbs Next is exam per pulmonary and nursing INVESTIGATIONS, reviewed in the clinical context: July 29: White count 3.5 hemoglobin 11.3 d-dimer 0.83 potassium 5 bicarb 18 BUN 70 creatinine 2.2 to July 28: White count 4.6 hemoglobin 9.4 platelets 219 LDL 29.1 Troponin I: 0.212, 0.182, 0.178 ABG: PO2 is 75 Admission labs: Potassium 5 BUN 93 creatinine 4.34 UA positive for leukoesterase, WBC, RBC Coronavirus [PCR]: Detected EKG tracing personally reviewed by me-normal sinus rhythm, atrial fibrillation with a rate of 110 Chest x-ray film personally reviewed by me-hyperinflation. Some infiltrate. 2-D echocardiogram. Moderate concentric LVH. EF 50-55%. Assessment and plan: -Acute severe nausea vomiting diarrhea secondary to COVID-19: Back to Full liquid diet. Symptomatic treatment. Last diarrhea episode was yesterday. Last time vomited was late last night. IV fluids -COVID-19, and a previously vaccinated patient Initial pulse ox was 90%. dexamethasone. -Positive troponin likely due to hemodynamic mismatch No clinical evidence of acute coronary syndrome -Persistent atrial fibrillation with rapid ventricular rate: Better controlled Telemetry. IV heparin-changed to eliquis. Flecainide. Coreg 3.125 mg twice a day. -CAD with a prior history of bypass in 2004 Aspirin, Lipitor, Zetia, Coreg -Hypotensive from volume loss from nausea vomiting diarrhea decreased appetite: Better Hold off VENKAT inhibitor. -COPD in a previous smoker Ventolin 2 puffs 4 times a day -Hyperlipidemia Crestor 40 mg daily -Normocytic anemia likely of chronic kidney disease -IV heparin monitoring: Discontinued Follow PTT -Chronic kidney disease stage III at baseline, from nephrosclerosis Follow renal function -Acute kidney injury, prerenal from nausea vomiting diarrhea IV fluids Appetite is improving. Follow renal function. IV fluids lactated Ringer's 100 mL an hour. Up in a chair as tolerated. Remains in atrial fibrillation rate controlled. Follow labs
[2021-07-29] MEDS ORDERED: HEPARIN SODIUM,PORCINE/PF 5,000 UNIT/0.5 ML SYRINGE SQ SCH (21:00)
--- NOTE | 2021-07-30 08:23 | P.PN ---
Subjective Progress Note Date: 07/30/21 Principal diagnosis: COVID-19 infection COPD not in exacerbation Chronic atrial fibrillation Non-STEMI Acute on chronic renal failure Ongoing nausea vomiting and diarrhea likely related to COVID-19 patient has been on liquid diet Coronary artery disease Hypertension and hypertensive on hold including VENKAT inhibitor's Dyslipidemia 07/30/2021, patient seen eval examined on 2 L oxygen, complaining of mild shortness of breath intermittent cough denies any chest pain, has active COVID- 19 infection. Was a not complaining of any respiratory issues, and room air oxygen saturation dropped down to 89% on 2 L 93% patient is afebrile blood pressure 110/53 his diarrhea significantly improved currently patient is on the direct oral anticoagulant, now on IV heparin, oral Decadron once daily, his chest x-ray admission was negative for any infiltrate, BUN/creatinine improved to 70/2.2 Patient is a 81-year-old male who presented emergency department with ongoing complaint of diarrhea one day prior to coming into the hospital he was found for COVID-19 patient has the on and off exertional shortness of breath, and denies any hemoptysis denies any NSAID fever or chills, Past medical history significant for chronic atrial fibrillation, coronary artery disease status post CABG, COPD hypertension bladder cancer, status post urostomy, chronic kidney disease stage III, currently patient is being treated with the diabetic control anticoagulants, patient is a high risk for the complication with REM doesn't wear due to acute on chronic kidney disease currently being treated with dexamethasone 6 mg daily Objective - Vital Signs Vital signs: Vital Signs Temp 97.3 F L 07/30/21 04:00 Pulse 83 07/30/21 04:00 Resp 18 07/30/21 04:00 BP 109/53 07/30/21 04:00 Pulse Ox 93 L 07/30/21 04:00 Intake & Output 07/29/21 07/30/21 07/30/21 18:59 06:59 18:59 Intake Total 480 Output Total 1600 370 Balance -1120 -370 Weight 86.183 kg Intake: Oral 480 Output: Urine 1600 370 Other: Voiding Method Ileal Conduit (Left) Ileal Conduit (Left) # Bowel Movements 0 - Exam - Constitutional General appearance: average body habitus, disheveled - EENT Eyes: EOMI, PERRLA Ears: bilateral: normal - Neck Neck: normal ROM Carotids: bilateral: upstroke normal - Respiratory Respiratory: bilateral: diminished - Cardiovascular Rhythm: regular Heart sounds: normal: S1, S2 - Neurologic Neurologic: CNII-XII intact - Musculoskeletal Musculoskeletal: generalized weakness - Psychiatric Psychiatric: A&O x's 3, appropriate affect - Labs CBC & Chem 7: 07/29/21 05:56 07/29/21 05:56 Labs: Microbiology - Last 24 Hours (Table) 07/29/21 01:00 Gram Stain - Preliminary Abdomen Wound Culture - Preliminary Assessment and Plan Assessment: COVID-19 infection Suspected developing COVID-19 pneumonia COPD not in exacerbation Chronic atrial fibrillation Non-STEMI Acute on chronic renal failure Elevated d-dimer Ongoing nausea vomiting and diarrhea likely related to COVID-19 patient has been on liquid diet Coronary artery disease Hypertension and hypertensive on hold including VENKAT inhibitor's Dyslipidemia Plan: Continue deep breathing sense incentive spirometry Obtain chest x-ray, increase his steroid dose to Solu-Medrol Continue hydration renal functions continued to improve Patient is not a candidate for IV REMdesivr at this time Continue anticoagulation with direct anticoagulants and monitor clinical course closely We'll follow closely Time with Patient: Greater than 30
[2021-07-30] MEDS: APIXABAN 2.5 MG TABLET PO SCH ×2 (08:30→20:01)
[2021-07-30] MEDS: ATORVASTATIN 80 MG TAB PO SCH (08:30)
[2021-07-30] MEDS: ASCORBIC ACID 500 MG TAB PO SCH ×2 (08:30→20:01)
[2021-07-30] MEDS: FLECAINIDE 50 MG TAB PO SCH ×2 (08:30→20:01)
[2021-07-30] MEDS: ZINC SULFATE 220 MG CAP PO SCH (08:30)
[2021-07-30] MEDS: ISOSORBIDE MONONITRATE ER 60 MG TAB.ER.24H PO SCH (08:30)
[2021-07-30] MEDS: EZETIMIBE 10 MG TAB PO SCH (08:30)
[2021-07-30] MEDS: SODIUM BICARBONATE TAB 650 MG TAB PO SCH ×2 (08:30→20:01)
[2021-07-30] MEDS: CHOLECALCIFEROL 125 MCG (5000 IU) TABLET PO SCH (08:30)
[2021-07-30] MEDS: LACTATED RINGERS 1,000 ML IV SCH ×2 (08:31→20:07)
[2021-07-30] MEDS: ASPIRIN 81 MG PO SCH (08:35)
--- NOTE | 2021-07-30 08:53 | XR ---
EXAMINATION TYPE: XR chest 1V DATE OF EXAM: 07/30/2021 COMPARISON: Chest x-ray 07/27/2021 HISTORY: Covid 19 TECHNIQUE: Single frontal view of the chest is obtained. FINDINGS: Patient is post median sternotomy and cardiac valve replacement, coronary stent noted. Car diac mediastinal silhouette is stable. Patchy basilar density is again seen. No evident pneumothorax or pleural effusion. There are overlying artifacts. Technique somewhat apical lordotic. Aorta is dens e. IMPRESSION: There may be basilar atelectasis or scarring, correlate for pneumonia. Postop change.
[2021-07-30 09:48] LABS: Calcium 9.5 mg/dL (8.4-10.2); Potassium 4.5 mmol/L (3.5-5.1)
--- NOTE | 2021-07-30 11:12 | P.CONS ---
History of Present Illness - Reason for Consult Consult date: 07/30/21 wound care - History of Present Illness This is an 81-year-old patient being seen on for nonhealing ulceration proximal to the urostomy site. Patient states that the ulcerations have been there for approximately 3 years. Surrounding skin shows scaly dry appearance. The ulceration measures approximately 1 x 1 x 0.1 and his Limited to skin breakdown. Patient does have an appointment with dermatology on Tuesday however due to his hospitalization he doesn't think he'll make it. Patient's past medical history is significant for atrial fibrillation, coronary artery disease, COPD, hypertension, chronic kidney disease stage III, bilateral lower extremity edema Review Of Systems: Constitutional: No fever, no chills, no night sweats. No weight change. No weakness, fatigue or lethargy. No daytime sleepiness. Integumentary:reports wounds, no lesions. No rash or pruritus. No unusual bruising. No change in hair or nails. Physical exam: General Appearance: Alert, cooperative, no distress, appears stated age. Skin: See HPI all other Skin color, texture, tugor normal, no rashes or lesions. Neurologic: Alert oriented x3 Assessment: 1. Nonhealing ulceration to the abdomen Limited to skin breakdown 2. Excoriation to the abdomen Plan: 1. Apply triad to ulceration and all surrounding skin. Change daily. Patient to return to dermatology for further follow-up. Thank you for the consultation any questions please contact the wound care center DNP note has been reviewed and discussed with Dr. Pickering and the impression and plan of care has been directed as dictated. Past Medical History Past Medical History: Atrial Fibrillation, Coronary Artery Disease (CAD), Cancer, COPD, Hypertension, Pneumonia, Renal Disease Additional Past Medical History / Comment(s): Bladder cancer with urostomy, bronchitis, bilateral lower leg edema, CKD III, past UTI, low iron, History of Any Multi-Drug Resistant Organisms: None Reported Past Surgical History: Bladder Surgery, Cholecystectomy, Coronary Bypass/CABG Additional Past Surgical History / Comment(s): Cystectomy/urostomy, colonoscopy, 3V CABG/bovine valve in 2004, bilateral blepharoplasties, bilateral cataract removals. Past Anesthesia/Blood Transfusion Reactions: No Reported Reaction Additional Past Anesthesia/Blood Transfusion Reaction / Comm: Pt has received blood in past without reaction. Smoking Status: Former smoker - Past Family History Father History Unknown: Yes Additional Family Medical History / Comment(s): Father drowned. Mother Family Medical History: Renal Disease Additional Family Medical History / Comment(s): Mother of renal failure. Medications and Allergies Home Medications Medication Instructions Recorded Confirmed Type Aspirin EC [Ecotrin Low Dose] 81 mg PO DAILY 07/27/21 07/27/21 History Ezetimibe [Zetia] 10 mg PO DAILY 07/27/21 07/28/21 History Fenofibric Acid (Choline) 135 mg PO DAILY 07/27/21 07/28/21 History [Trilipix] Ferrous Sulfate [Feosol] 325 mg PO DAILY 07/27/21 07/27/21 History Flecainide [Tambocor] 50 mg PO BID 07/27/21 07/28/21 History Furosemide [Lasix] 40 mg PO BID 07/27/21 07/28/21 History Isosorbide Mononitrate ER [Imdur] 60 mg PO DAILY 07/27/21 07/28/21 History Potassium Chloride [Potassium 8 meq PO DAILY 07/27/21 07/28/21 History Chloride ER] Rosuvastatin Calcium [Crestor] 40 mg PO DAILY 07/27/21 07/28/21 History carvediloL [Coreg] 3.125 mg PO BID 07/27/21 07/28/21 History lisinopriL [Zestril] 40 mg PO DAILY 07/27/21 07/28/21 History Albuterol Inhaler [Ventolin Hfa 2 puff INHALATION RT-Q4H PRN 07/28/21 07/28/21 History Inhaler] Cyclobenzaprine [Flexeril] 10 mg PO BID PRN 07/28/21 07/28/21 History Fluticasone Nasal Homer [Flonase 1 spray EA NOSTRIL DAILY 07/28/21 07/28/21 History Nasal Homer] Ipratropium-Albuterol Nebulize 3 ml INHALATION RT-Q6H PRN 07/28/21 07/28/21 History [Duoneb 0.5 mg-3 mg/3 ml Soln] NIFEdipine XL [Procardia XL] 60 mg PO DAILY 07/28/21 07/28/21 History Nitroglycerin Sl Tabs [Nitrostat] 0.4 mg SUBLINGUAL Q5M PRN 07/28/21 07/28/21 History Apixaban [Eliquis] 2.5 mg PO BID 30 Days #60 tablet 07/30/21 Rx Allergies Allergy/AdvReac Type Severity Reaction Status Date / Time sulfamethoxazole Allergy Unknown Verified 07/27/21 20:36 [From Bactrim] tetanus and diphtheria Allergy Swelling Verified 07/27/21 20:36 toxoids at injection site(arm) trimethoprim [From Bactrim] Allergy Unknown Verified 07/27/21 20:36 Physical Exam Vitals: Vital Signs Temp Pulse Resp BP BP Pulse Ox 07/30/21 08:45 104/60 07/30/21 08:23 98.0 F 88 16 106/67 93 L 07/30/21 04:00 97.3 F L 83 18 109/53 93 L 07/30/21 02:00 18 07/30/21 00:00 97 F L 77 18 87/50 92 L 07/29/21 20:00 96.8 F L 85 18 88/52 89 L 07/29/21 16:00 97.5 F L 87 18 119/80 94 L 07/29/21 12:59 94 18 07/29/21 12:12 94 L 07/29/21 12:00 97.7 F 92 18 108/61 95 Intake and Output 07/29/21 07/30/21 07/30/21 22:59 06:59 14:59 Intake Total 120 118 Output Total 650 320 300 Balance -530 -320 -182 Intake: Oral 120 118 Output: Urine 650 320 300 Other: Voiding Method Ileal Conduit (Left) Ileal Conduit (Left) Ileal Conduit (Left) # Bowel Movements 0 Results CBC & Chem 7: 07/29/21 05:56 07/30/21 08:59 Labs: Abnormal Lab Results - Last 24 Hours (Table) 07/30/21 07/30/21 Range/Units 08:59 08:59 D-Dimer 0.97 H (<0.60) mg/L FEU Chloride 119 H (98-107) mmol/L BUN 65 H (9-20) mg/dL Creatinine 1.79 H (0.66-1.25) mg/dL Glucose 116 H (74-99) mg/dL Microbiology - Last 24 Hours (Table) 07/27/21 19:34 Urine Culture - Final Urine,Clean Catch 07/29/21 01:00 Gram Stain - Preliminary Abdomen Wound Culture - Preliminary Assessment and Plan (1) Non-pressure chronic ulcer of skin of other sites limited to breakdown of skin Current Visit: Yes Status: Acute Code(s): L98.491 - NON-PRS CHRONIC ULCER SKIN/ SITES LIMITED TO BRKDWN SKIN SNOMED Code(s): 19070158 (2) Excoriated rash Current Visit: Yes Status: Acute Code(s): R21 - RASH AND OTHER NONSPECIFIC SKIN ERUPTION SNOMED Code(s): 731369172
--- NOTE | 2021-07-30 11:34 | P.PN ---
Subjective Patient is seen for follow-up for acute kidney injury. He was admitted to the hospital with increased weakness and diarrhea. Patient the tested positive for COVID-19. No significant respiratory symptoms currently. Serum creatinine was 4.3 mg/dL and decreased to about 2.2 yesterday. Currently patient is maintained on IV fluids. He has had good urine output. Wolf inhibitors are on hold as blood pressure has been on the lower side with systolic as low as 93 mmHg. Objective - Vital Signs Vital signs: Vital Signs Temp 98.0 F 07/30/21 08:23 Pulse 88 07/30/21 08:23 Resp 16 07/30/21 08:23 BP 104/60 07/30/21 08:45 Pulse Ox 93 L 07/30/21 08:23 Intake & Output 07/29/21 07/30/21 07/30/21 18:59 06:59 18:59 Intake Total 480 118 Output Total 1600 370 300 Balance -1120 -370 -182 Weight 86.183 kg Intake: Oral 480 118 Output: Urine 1600 370 300 Other: Voiding Method Ileal Conduit (Left) Ileal Conduit (Left) Ileal Conduit (Left) # Bowel Movements 0 - Exam Patient is awake comfortable not in any acute distress. Examination of lower extremity shows no evidence of edema Lungs and heart are not examined due to Covid isolation - Labs CBC & Chem 7: 07/29/21 05:56 07/30/21 08:59 Labs: Abnormal Lab Results - Last 24 Hours (Table) 07/30/21 07/30/21 Range/Units 08:59 08:59 D-Dimer 0.97 H (<0.60) mg/L FEU Chloride 119 H (98-107) mmol/L BUN 65 H (9-20) mg/dL Creatinine 1.79 H (0.66-1.25) mg/dL Glucose 116 H (74-99) mg/dL Microbiology - Last 24 Hours (Table) 07/27/21 19:34 Urine Culture - Final Urine,Clean Catch 07/29/21 01:00 Gram Stain - Preliminary Abdomen Wound Culture - Preliminary Assessment and Plan Assessment: 1. Acute kidney injury mostly prerenal and low blood pressure and currently improving with IV hydration. Serum creatinine is down from 4.3-2.2 mg/dL today. Continue with IV fluids and encourage increase oral intake. Continue to hold off on WOLF inhibitor's for now. 2. Pyuria likely urinary tract infection. Urine culture was negative 3. Positive COVID-19 PCR with no significant respiratory symptoms and no significant abnormalities noted on chest x-ray. Currently on room air with O2 sats 92-94%. 4. Non-ST elevation ME followed by cardiology, IV heparin now discontinued 5. Metabolic acidosis non-gap associated with renal failure and IV fluids, m aintained on oral sodium bicarb 6. Nausea vomiting and diarrhea secondary to gastroenteritis possibly related to COVID-19 infection, currently improved 7. History of bladder cancer with cystectomy and urostomy Plan: Continue with IV fluids Continue with oral sodium bicarb Avoid nephrotoxic agents
[2021-07-30] MEDS: carvediloL 3.125 MG TAB PO SCH ×2 (11:49→20:01)
[2021-07-30] MEDS: methylPREDNISolone SOD SUCCI 125 MG/2 ML VIAL IV SCH ×2 (11:49→18:29)
--- NOTE | 2021-07-30 13:15 | P.PN ---
Subjective HISTORY OF PRESENTING ILLNESS Patient is pleasant 82-year-old old with history of coronary artery disease status post CABG, valvular heart disease status post bioprosthetic aortic valve replacement apparently at [facility], hypertension, hyperlipidemia, chronic kidney disease stage III per patient, tobacco abuse, peripheral arterial disease status post peripheral stenting who presents secondary to "feeling sick" with some diarrhea and feeling somewhat feverish and had a home COVID-19 test which was positive and therefore presented to emergency department. He was found to have new acute kidney injury with creatinine in the force and minimally elevated troponins 0.2, 0.18, 0.178. He denies any actual chest pain or pressure. He denies any actual shortness breath however has not been doing much. He was also found to be in A. fib with borderline heart rates in the 90s to 100s. He states he has never been on any anticoagulation however Eliquis does sound somewhat familiar. He is also been on flexion night however has not followed with a teenage program director in a few years. Echocardiogram revealed EF of 5055%, moderate concentric LVH, mild tricuspid regurgitation 07/30/2021 Patient seen and examined at bedside, no distress. He denies any chest pain or shortness of breath. He has been hypotensive this morning, his Nifedipine has been held. He is improving every day. His renal function continues to improve. He's currently maintained on aspirin 81 mg daily, atorvastatin 80 mg daily, carvedilol 3.125 mg twice a day, Zetia , Flecainide 50 mg twice a day, Imdur 60 mg daily, nifedipine 60 mg daily Telemetry, patient in atrial fibrillation with controlled ventricular rates. Labs, sodium 144, potassium 4.5, BUN 65, serum creatinine 1.79 PHYSICAL EXAMINATION Vital signs reviewed. CONSTITUTIONAL: No apparent distress. HEENT: Neck supple No JVD. No carotid bruit. CHEST EXAMINATION: Lungs are diminished to auscultation. HEART EXAMINATION: Irregular rate and rhythm. S1, S2 heard. No murmurs, gallops or rub. ABDOMEN: Soft, nontender. Positive bowel sounds. EXTREMITIES: 2+ peripheral pulses, no lower extremity edema and no calf tenderness. NEUROLOGIC EXAMINATION: Patient is awake, alert and oriented x3. ASSESSMENT 1. Non-STEMI, likely type II mechanism related to acute kidney injury and COVID-19 2. COVID-19 3. Acute kidney injury, improving 4. Coronary artery disease status post CABG 5. History of bioprosthetic aortic valve replacement 6. Persistent atrial fibrillation 7. History Hypertension 8. PAD status post prior intervention 9. Tobacco abuse PLAN Patient's main presentation appears related to COVID-19 infection. Recommended anticoagulation, Continue Eliquis 2.5mg BID. Case management has been consulted for assistance for coverage of anticoagulation they are also checking coverage for Xarelto Hold antihypertensive with MAP <60 Continue statin, carvedilol, Zetia, flecainide, imdur Nephrology following Tobacco cessation recommended. Continue cardiac telemetry Further recommendations to follow. Objective - Vital Signs Vital signs: Vital Signs Temp 98.0 F 07/30/21 08:23 Pulse 88 07/30/21 08:23 Resp 16 07/30/21 08:23 BP 104/60 07/30/21 08:45 Pulse Ox 93 L 07/30/21 08:23 Intake & Output 07/29/21 07/30/21 07/30/21 18:59 06:59 18:59 Intake Total 480 118 Output Total 1600 370 300 Balance -1120 -370 -182 Weight 86.183 kg Intake: Oral 480 118 Output: Urine 1600 370 300 Other: Voiding Method Ileal Conduit (Left) Ileal Conduit (Left) Ileal Conduit (Left) # Bowel Movements 0 - Labs CBC & Chem 7: 07/29/21 05:56 07/30/21 08:59 Labs: Abnormal Lab Results - Last 24 Hours (Table) 07/30/21 07/30/21 Range/Units 08:59 08:59 D-Dimer 0.97 H (<0.60) mg/L FEU Chloride 119 H (98-107) mmol/L BUN 65 H (9-20) mg/dL Creatinine 1.79 H (0.66-1.25) mg/dL Glucose 116 H (74-99) mg/dL Microbiology - Last 24 Hours (Table) 07/27/21 19:34 Urine Culture - Final Urine,Clean Catch 07/29/21 01:00 Gram Stain - Preliminary Abdomen Wound Culture - Preliminary
[2021-07-30] MEDS: HYDROPHILIC CREAM 180 GM TUBE TOPICAL SCH (17:05)
--- NOTE | 2021-07-30 18:56 | P.PN ---
Progress Note - Text Progress Note Date: 07/30/21 Chief Complaint: Weak and tired This is a 81-year-old patient who follows with Dr. Leandro Kitchen. Chronic stable medical conditions include atrial fibrillation, CAD with a history of bypass, COPD, hypertension, bladder cancer with urostomy, chronic kidney disease stage III. Does live alone. Patient been having 6 days of significant vomiting and diarrhea. He was feeling exhausted by yesterday. Was been able to get up. Appetite has been poor. He tested positive for COVID-19 yesterday. She has been vaccinated. No loss of taste or smell. Patient last diarrhea was yesterday. Feeling a bit better after getting fluids in the ER. No fever no chills. No headaches. No chest pain. Denies shortness of breath. Patient denies wound of the abdomen for about 3 years near the urostomy bag. Admitted with severe nausea vomiting diarrhea secondary to COVID-19. Treated symptomatically. Troponin leak due to hemodynamic mismatch. Hypotensive. Given IV fluids. Acute kidney injury. Also atrial fibrillation with uncontrolled rate. July 29: Laying in bed. Feels a bit less diet. No further diarrhea. No nausea vomiting. Did eat some breakfast. In atrial fibrillation rate controlled. July 30: Feeling a bit better. Appetite improved. No diarrhea. Remains in A. fib with heart rate around 100. On 2 L nasal cannula. Seen by wound care team for his abdominal wound. Active Medications Acetaminophen (Acetaminophen Tab 325 Mg Tab) 650 mg PO Q6HR PRN PRN Reason: Mild Pain or Fever > 100.5 Alprazolam (Alprazolam 0.25 Mg Tab) 0.25 mg PO Q6HR PRN PRN Reason: Anxiety Apixaban (Apixaban 2.5 Mg Tablet) 2.5 mg PO BID [facility]; Protocol Last Admin: 07/30/21 08:30 Dose: 2.5 mg Documented by: Ascorbic Acid (Ascorbic Acid 500 Mg Tab) 500 mg PO BID [facility] Last Admin: 07/30/21 08:30 Dose: 500 mg Documented by: Aspirin (Aspirin 81 Mg) 81 mg PO DAILY [facility] Last Admin: 07/30/21 08:35 Dose: 81 mg Documented by: Atorvastatin Calcium (Atorvastatin 80 Mg Tab) 80 mg PO DAILY [facility] Last Admin: 07/30/21 08:30 Dose: 80 mg Documented by: Calcium Carbonate/Glycine (Calcium Carbonate 500 Mg Chewable) 1,000 mg PO Q4HR PRN PRN Reason: Dyspepsia Carvedilol (Carvedilol 3.125 Mg Tab) 3.125 mg PO BID [facility] Last Admin: 07/30/21 11:49 Dose: Not Given Documented by: Cholecalciferol (Cholecalciferol 125 Mcg (5000 Iu) Tablet) 125 mcg PO DAILY [facility] Last Admin: 07/30/21 08:30 Dose: 125 mcg Documented by: Cyclobenzaprine HCl (Cyclobenzaprine 10 Mg Tab) 10 mg PO BID PRN PRN Reason: Muscle Spasm Ezetimibe (Ezetimibe 10 Mg Tab) 10 mg PO DAILY [facility] Last Admin: 07/30/21 08:30 Dose: 10 mg Documented by: Flecainide Acetate (Flecainide 50 Mg Tab) 50 mg PO BID [facility] Last Admin: 07/30/21 08:30 Dose: 50 mg Documented by: Lactated Ringer's (Lactated Ringers) 1,000 mls @ 100 mls/hr IV .Q10H [facility] Last Admin: 07/30/21 08:31 Dose: 100 mls/hr Documented by: Isosorbide Mononitrate (Isosorbide Mononitrate Er 60 Mg Tab.Er.24h) 60 mg PO DAILY [facility] Last Admin: 07/30/21 08:30 Dose: 60 mg Documented by: Lactulose (Lactulose 20 Gm/30 Ml Cup) 20 gm PO DAILY PRN PRN Reason: Constipation Melatonin (Melatonin 3 Mg Tablet) 3 mg PO HS PRN PRN Reason: Insomnia Methylprednisolone Sodium Succinate (Methylprednisolone Sod Succi 125 Mg/2 Ml Vial) 60 mg IV Q6HR [facility] Last Admin: 07/30/21 18:29 Dose: 60 mg Documented by: Multi-Ingred Cream/Lotion/Oil/Oint (Hydrophilic Cream 180 Gm Tube) 1 applic TOPICAL DAILY [facility]; Protocol Last Admin: 07/30/21 17:05 Dose: 1 applic Documented by: Naloxone HCl (Naloxone 0.4 Mg/Ml 1 Ml Vial) 0.2 mg IV Q2M PRN PRN Reason: Opioid Reversal Nifedipine (Nifedipine Xl 60 Mg Tab.Er.24) 60 mg PO DAILY [facility] Last Admin: 07/30/21 11:02 Dose: Not Given Documented by: Nitroglycerin (Nitroglycerin Sl Tabs 0.4 Mg Tab) 0.4 mg SUBLINGUAL Q5M PRN PRN Reason: Chest Pain Ondansetron HCl (Ondansetron 4 Mg/2 Ml Vial) 4 mg IVP Q8HR PRN PRN Reason: Nausea And Vomiting Sodium Bicarbonate (Sodium Bicarbonate Tab 650 Mg Tab) 650 mg PO BID [facility] Last Admin: 07/30/21 08:30 Dose: 650 mg Documented by: Zinc Sulfate (Zinc Sulfate 220 Mg Cap) 220 mg PO DAILY [facility] Last Admin: 07/30/21 08:30 Dose: 220 mg Documented by: Past medical history to include: Atrial fibrillation, CAD with bypass in 2004, COPD, hypertension, CK D stage III, bladder cancer with urostomy, Social history: Patient smoked for 64 years average about 2 packs a day stopped 3 years ago. Alcohol occasionally. 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 Family history: Kidney disease Physical examination: VITAL SIGNS: 98, 88, 16, 106/67, 93% on 2 L GENERAL: Laying in bed, awake, a bit more perky PSYCH: Alert and oriented x3; mood and affect normal NEUROLOGICAL: Cranial nerves grossly intact; no facial asymmetry, moving all 4 limbs Next is exam per pulmonary and nursing INVESTIGATIONS, reviewed in the clinical context: July 30: D-dimer 0.97 potassium 4.5 BUN 65 creatinine 1.79 July 29: White count 3.5 hemoglobin 11.3 d-dimer 0.83 potassium 5 bicarb 18 BUN 70 creatinine 2.2 to July 28: White count 4.6 hemoglobin 9.4 platelets 219 LDL 29.1 Troponin I: 0.212, 0.182, 0.178 ABG: PO2 is 75 Admission labs: Potassium 5 BUN 93 creatinine 4.34 UA positive for leukoesterase, WBC, RBC Coronavirus [PCR]: Detected EKG tracing personally reviewed by me-normal sinus rhythm, atrial fibrillation with a rate of 110 Chest x-ray film personally reviewed by me-hyperinflation. Some infiltrate. 2-D echocardiogram. Moderate concentric LVH. EF 50-55%. Assessment and plan: -Acute severe nausea vomiting diarrhea secondary to COVID-19: Improved Diet advanced -COVID-19, and a previously vaccinated patient Initial pulse ox was 90%. IV Solu-Medrol -Abdominal wound present for 3 years. Being followed by wound care team -Positive troponin likely due to hemodynamic mismatch No clinical evidence of acute coronary syndrome -Persistent atrial fibrillation with rapid ventricular rate: Better controlled Telemetry. IV heparin-changed to eliquis. Flecainide. Coreg 3.125 mg twice a day. -CAD with a prior history of bypass in 2004 Aspirin, Lipitor, Zetia, Coreg -Hypotensive from volume loss from nausea vomiting diarrhea decreased appetite: Better Hold off VENKAT inhibitor. -COPD in a previous smoker IV Solu-Medrol -Hyperlipidemia Crestor 40 mg daily -Normocytic anemia likely of chronic kidney disease -IV heparin monitoring: Discontinued Follow PTT -Chronic kidney disease stage III at baseline, from nephrosclerosis Follow renal function -Acute kidney injury, prerenal from nausea vomiting diarrhea: Improving IV fluids Diet is improving. Patient on LR. IV Solu-Medrol started by Dr Quiroga from [facility]. Follow labs. Up in chair increase activity as tolerated..
[2021-07-30 20:16] LABS: Glucose,Whole Blood 170 mg/dL (75-99)
[2021-07-31] MEDS: methylPREDNISolone SOD SUCCI 125 MG/2 ML VIAL IV SCH ×5 (00:03→23:35)
[2021-07-31 07:06] LABS: Glucose,Whole Blood 130 mg/dL (75-99)
[2021-07-31] MEDS: APIXABAN 2.5 MG TABLET PO SCH ×2 (07:56→20:11)
[2021-07-31] MEDS: CHOLECALCIFEROL 125 MCG (5000 IU) TABLET PO SCH (07:56)
[2021-07-31] MEDS: ISOSORBIDE MONONITRATE ER 60 MG TAB.ER.24H PO SCH (07:57)
[2021-07-31] MEDS: ATORVASTATIN 80 MG TAB PO SCH (07:57)
[2021-07-31] MEDS: FLECAINIDE 50 MG TAB PO SCH ×2 (07:57→20:11)
[2021-07-31] MEDS: ASCORBIC ACID 500 MG TAB PO SCH ×2 (07:57→20:11)
[2021-07-31] MEDS: carvediloL 3.125 MG TAB PO SCH ×2 (07:57→20:11)
[2021-07-31] MEDS: ZINC SULFATE 220 MG CAP PO SCH (07:57)
[2021-07-31] MEDS: EZETIMIBE 10 MG TAB PO SCH (07:57)
[2021-07-31] MEDS: SODIUM BICARBONATE TAB 650 MG TAB PO SCH ×2 (07:57→20:11)
[2021-07-31] MEDS: ASPIRIN 81 MG PO SCH (07:57)
[2021-07-31] MEDS: HYDROPHILIC CREAM 180 GM TUBE TOPICAL SCH (07:58)
[2021-07-31 08:41] LABS: Calcium 9.5 mg/dL (8.4-10.2)
[2021-07-31 12:12] LABS: Glucose,Whole Blood 141 mg/dL (75-99)
[2021-07-31] MEDS: LACTATED RINGERS 1,000 ML IV SCH ×2 (12:12→16:51)
--- NOTE | 2021-07-31 12:50 | P.PN ---
Subjective HISTORY OF PRESENTING ILLNESS Patient is pleasant 82-year-old old with history of coronary artery disease status post CABG, valvular heart disease status post bioprosthetic aortic valve replacement apparently at [facility], hypertension, hyperlipidemia, chronic kidney disease stage III per patient, tobacco abuse, peripheral arterial disease status post peripheral stenting who presents secondary to "feeling sick" with some diarrhea and feeling somewhat feverish and had a home COVID-19 test which was positive and therefore presented to emergency department. He was found to have new acute kidney injury with creatinine in the force and minimally elevated troponins 0.2, 0.18, 0.178. He denies any actual chest pain or pressure. He denies any actual shortness breath however has not been doing much. He was also found to be in A. fib with borderline heart rates in the 90s to 100s. He states he has never been on any anticoagulation however Eliquis does sound somewhat familiar. He is also been on flexion night however has not followed with a composition weatherboard installer in a few years. Echocardiogram revealed EF of 5055%, moderate concentric LVH, mild tricuspid regurgitation 07/31/2021 Patient seen and examined at bedside, no distress. He denies any chest pain or shortness of breath. His blood pressures have improved. He was slightly bradycardic this morning HR high 40s-50s he converted to sinus mechanism and is maintaining sinus mechanism this morning. He is improving every day. His renal function continues to improve. He's currently maintained on aspirin 81 mg daily, atorvastatin 80 mg daily, carvedilol 3.125 mg twice a day, Zetia , Flecainide 50 mg twice a day, Imdur 60 mg daily, nifedipine 60 mg daily Labs, sodium 144, potassium 5.0, BUN 60, serum creatinine 1.6. PHYSICAL EXAMINATION Vital signs reviewed. CONSTITUTIONAL: No apparent distress. HEENT: Neck supple No JVD. No carotid bruit. CHEST EXAMINATION: Lungs are diminished to auscultation. HEART EXAMINATION: Irregular rate and rhythm. S1, S2 heard. No murmurs, gallops or rub. ABDOMEN: Soft, nontender. Positive bowel sounds. EXTREMITIES: 2+ peripheral pulses, no lower extremity edema and no calf tenderness. NEUROLOGIC EXAMINATION: Patient is awake, alert and oriented x3. ASSESSMENT 1. Non-STEMI, likely type II mechanism related to acute kidney injury and COVID-19 2. COVID-19 3. Acute kidney injury, improving 4. Coronary artery disease status post CABG 5. History of bioprosthetic aortic valve replacement 6. Persistent atrial fibrillation 7. History Hypertension 8. PAD status post prior intervention 9. Tobacco abuse PLAN Recommend restarting patient's home Lasix 40mg BID, nephrology is also following as well Patient's main presentation appears related to COVID-19 infection. Recommended anticoagulation, Continue Eliquis 2.5mg BID. Case management has been consulted for assistance for coverage and this or dication is covered with $80 copay Continue statin, carvedilol, Zetia, flecainide, imdur From cardiology perspective, patient stable. We will hold the patient is needed. Objective - Vital Signs Vital signs: Vital Signs Temp 97.6 F 07/31/21 07:55 Pulse 66 07/31/21 07:55 Resp 17 07/31/21 07:55 BP 119/68 07/31/21 07:55 Pulse Ox 96 07/31/21 07:55 Intake & Output 07/30/21 07/31/21 07/31/21 18:59 06:59 18:59 Intake Total 238 240 Output Total 550 400 500 Balance -312 -400 -260 Intake: Oral 238 240 Output: Urine 550 400 500 Other: Voiding Method Ileal Conduit (Left) Ileal Conduit (Left) - Labs CBC & Chem 7: 07/29/21 05:56 07/31/21 07:47 Labs: Abnormal Lab Results - Last 24 Hours (Table) 07/30/21 07/31/21 07/31/21 Range/Units 20:09 07:03 07:47 Chloride 118 H (98-107) mmol/L BUN 60 H (9-20) mg/dL Creatinine 1.67 H (0.66-1.25) mg/dL Glucose 164 H (74-99) mg/dL POC Glucose (mg/dL) 170 H 130 H (75-99) mg/dL Microbiology - Last 24 Hours (Table) 07/29/21 01:00 Gram Stain - Preliminary Abdomen Wound Culture - Preliminary Gram Neg Bacilli Presumptive Staph aureus 07/27/21 19:34 Urine Culture - Final Urine,Clean Catch
--- NOTE | 2021-07-31 16:02 | P.PN ---
Subjective Patient is seen for follow-up for acute kidney injury. He was admitted to the hospital with increased weakness and diarrhea. Patient the tested positive for COVID-19. No significant respiratory symptoms currently. The patient is maintained on IV fluids. He has had good urine output. Wolf inhibitors are on hold as blood pressure has been on the lower side with systolic as low as 93 mmHg. No significant complaints today sliding creatinine is down to 1.67 today from 4.3 on admission Objective - Vital Signs Vital signs: Vital Signs Temp 97.6 F 07/31/21 07:55 Pulse 63 07/31/21 12:10 Resp 16 07/31/21 12:10 BP 128/70 07/31/21 12:10 Pulse Ox 96 07/31/21 12:10 Intake & Output 07/30/21 07/31/21 07/31/21 18:59 06:59 18:59 Intake Total 238 240 Output Total 550 400 500 Balance -312 -400 -260 Intake: Oral 238 240 Output: Urine 550 400 500 Other: Voiding Method Ileal Conduit (Left) Ileal Conduit (Left) Ileal Conduit (Left) - Exam Patient is awake comfortable not in any acute distress. Examination of lower extremity shows no evidence of edema Lungs and heart are not examined due to Covid isolation - Labs CBC & Chem 7: 07/29/21 05:56 07/31/21 07:47 Labs: Abnormal Lab Results - Last 24 Hours (Table) 07/30/21 07/31/21 07/31/21 Range/Units 20:09 07:03 07:47 Chloride 118 H (98-107) mmol/L BUN 60 H (9-20) mg/dL Creatinine 1.67 H (0.66-1.25) mg/dL Glucose 164 H (74-99) mg/dL POC Glucose (mg/dL) 170 H 130 H (75-99) mg/dL 07/31/21 Range/Units 12:09 Chloride (98-107) mmol/L BUN (9-20) mg/dL Creatinine (0.66-1.25) mg/dL Glucose (74-99) mg/dL POC Glucose (mg/dL) 141 H (75-99) mg/dL Microbiology - Last 24 Hours (Table) 07/29/21 01:00 Gram Stain - Preliminary Abdomen Wound Culture - Preliminary Proteus vulgaris Presumptive Staph aureus Assessment and Plan Assessment: 1. Acute kidney injury mostly prerenal and low blood pressure and currently improving with IV hydration. Serum creatinine is down from 4.3-1.67 mg/dL today. WOLF inhibitor's currently on hold. Patient is maintained on IV fluids. 2. Pyuria likely urinary tract infection. Urine culture was negative 3. Positive COVID-19 PCR with no significant respiratory symptoms and no significant abnormalities noted on chest x-ray. Currently on room air with O2 sats 92-94%. 4. Non-ST elevation [place] followed by cardiology, IV heparin now discontinued 5. Metabolic acidosis non-gap associated with renal failure and IV fluids, maintained on oral sodium bicarb 6. Nausea vomiting and diarrhea secondary to gastroenteritis possibly related to COVID-19 infection, currently improved 7. History of bladder cancer with cystectomy and urostomy 8. Chronic abdominal wound. Plan: Decrease IV fluids Encourage increased oral intake Continue with oral sodium bicarb Avoid nephrotoxic agents
[2021-07-31 16:46] LABS: Glucose,Whole Blood 156 mg/dL (75-99)
--- NOTE | 2021-07-31 16:58 | P.PN ---
Subjective Progress Note Date: 07/31/21 Principal diagnosis: COVID-19 infection COPD not in exacerbation Chronic atrial fibrillation Non-STEMI Acute on chronic renal failure Ongoing nausea vomiting and diarrhea likely related to COVID-19 patient has been on liquid diet Coronary artery disease Hypertension and hypertensive on hold including VENKAT inhibitor's Dyslipidemia 07/31/2020, patient seen eval examined during the rounds each and remains on 2 L oxygen denies any cough or sputum production denies genital pain and diarrhea is improved, currently patient is being treated with direct oral anticoagulant, IV steroids continue show High-dose IV steroids follow-up chest x-ray continued to show some basal infiltrate likely go with pneumonia 07/30/2021, patient seen eval examined on 2 L oxygen, complaining of mild shortness of breath intermittent cough denies any chest pain, has active COVID- 19 infection. Was a not complaining of any respiratory issues, and room air oxygen saturation dropped down to 89% on 2 L 93% patient is afebrile blood pressure 110/53 his diarrhea significantly improved currently patient is on the direct oral anticoagulant, now on IV heparin, oral Decadron once daily, his ches t x-ray admission was negative for any infiltrate, BUN/creatinine improved to 70/2.2 Patient is a 81-year-old male who presented emergency department with ongoing complaint of diarrhea one day prior to coming into the hospital he was found for COVID-19 patient has the on and off exertional shortness of breath, and denies any hemoptysis denies any NSAID fever or chills, Past medical history significant for chronic atrial fibrillation, coronary artery disease status post CABG, COPD hypertension bladder cancer, status post urostomy, chronic kidney disease stage III, currently patient is being treated with the diabetic control anticoagulants, patient is a high risk for the complication with REM doesn't wear due to acute on chronic kidney disease currently being treated with dexamethasone 6 mg daily Objective - Vital Signs Vital signs: Vital Signs Temp 98.0 F 07/31/21 16:50 Pulse 59 L 07/31/21 16:50 Resp 15 07/31/21 16:50 BP 104/63 07/31/21 16:50 Pulse Ox 96 07/31/21 16:50 Intake & Output 07/30/21 07/31/21 07/31/21 18:59 06:59 18:59 Intake Total 238 240 Output Total 550 400 500 Balance -312 -400 -260 Intake: Oral 238 240 Output: Urine 550 400 500 Other: Voiding Method Ileal Conduit (Left) Ileal Conduit (Left) Ileal Conduit (Left) # Voids 2 - Exam - Constitutional General appearance: average body habitus, disheveled - EENT Eyes: EOMI, PERRLA Ears: bilateral: normal - Neck Neck: normal ROM Carotids: bilateral: upstroke normal - Respiratory Respiratory: bilateral: diminished - Cardiovascular Rhythm: regular Heart sounds: normal: S1, S2 - Neurologic Neurologic: CNII-XII intact - Musculoskeletal Musculoskeletal: generalized weakness - Psychiatric Psychiatric: A&O x's 3, appropriate affect - Labs CBC & Chem 7: 07/29/21 05:56 07/31/21 07:47 Labs: Abnormal Lab Results - Last 24 Hours (Table) 07/30/21 07/31/21 07/31/21 Range/Units 20:09 07:03 07:47 Chloride 118 H (98-107) mmol/L BUN 60 H (9-20) mg/dL Creatinine 1.67 H (0.66-1.25) mg/dL Glucose 164 H (74-99) mg/dL POC Glucose (mg/dL) 170 H 130 H (75-99) mg/dL 07/31/21 07/31/21 Range/Units 12:09 16:43 Chloride (98-107) mmol/L BUN (9-20) mg/dL Creatinine (0.66-1.25) mg/dL Glucose (74-99) mg/dL POC Glucose (mg/dL) 141 H 156 H (75-99) mg/dL Microbiology - Last 24 Hours (Table) 07/29/21 01:00 Gram Stain - Preliminary Abdomen Wound Culture - Preliminary Proteus vulgaris Presumptive Staph aureus Assessment and Plan Assessment: COVID-19 infection COVID-19 pneumonia COPD not in exacerbation Chronic atrial fibrillation Non-STEMI Acute on chronic renal failure Elevated d-dimer Ongoing nausea vomiting and diarrhea likely related to COVID-19 patient has been on liquid diet Coronary artery disease Hypertension and hypertensive on hold including VENKAT inhibitor's Dyslipidemia Plan: Continue deep breathing sense incentive spirometry Reviewed chest x-ray, continue high-dose Solu-Medrol another day Continue hydration renal functions continued to improve Patient is not a candidate for IV REMdesivr at this time Continue anticoagulation with direct anticoagulants and monitor clinical course closely We'll follow closely Time with Patient: Greater than 30
--- NOTE | 2021-07-31 19:12 | P.PN ---
Progress Note - Text Progress Note Date: 07/31/21 Chief Complaint: Weak and tired This is a 81-year-old patient who follows with Dr. Leandro Kitchen. Chronic stable medical conditions include atrial fibrillation, CAD with a history of bypass, COPD, hypertension, bladder cancer with urostomy, chronic kidney disease stage III. Does live alone. Patient been having 6 days of significant vomiting and diarrhea. He was feeling exhausted by yesterday. Was been able to get up. Appetite has been poor. He tested positive for COVID-19 yesterday. She has been vaccinated. No loss of taste or smell. Patient last diarrhea was yesterday. Feeling a bit better after getting fluids in the ER. No fever no chills. No headaches. No chest pain. Denies shortness of breath. Patient denies wound of the abdomen for about 3 years near the urostomy bag. Admitted with severe nausea vomiting diarrhea secondary to COVID-19. Treated symptomatically. Troponin leak due to hemodynamic mismatch. Hypotensive. Given IV fluids. Acute kidney injury. Also atrial fibrillation with uncontrolled rate. July 29: Laying in bed. Feels a bit less diet. No further diarrhea. No nausea vomiting. Did eat some breakfast. In atrial fibrillation rate controlled. July 30: Feeling a bit better. Appetite improved. No diarrhea. Remains in A. fib with heart rate around 100. On 2 L nasal cannula. Seen by wound care team for his abdominal wound. July 31: Remains in atrial fibrillation. Rate controlled. Oral intake be tter, eating about 75%. Less diet. Breathing better. Abdominal wound growing Proteus mirabilis and staph aureus. Active Medications Acetaminophen (Acetaminophen Tab 325 Mg Tab) 650 mg PO Q6HR PRN PRN Reason: Mild Pain or Fever > 100.5 Alprazolam (Alprazolam 0.25 Mg Tab) 0.25 mg PO Q6HR PRN PRN Reason: Anxiety Apixaban (Apixaban 2.5 Mg Tablet) 2.5 mg PO BID [facility]; Protocol Last Admin: 07/31/21 07:56 Dose: 2.5 mg Documented by: Ascorbic Acid (Ascorbic Acid 500 Mg Tab) 500 mg PO BID [facility] Last Admin: 07/31/21 07:57 Dose: 500 mg Documented by: Aspirin (Aspirin 81 Mg) 81 mg PO DAILY [facility] Last Admin: 07/31/21 07:57 Dose: 81 mg Documented by: Atorvastatin Calcium (Atorvastatin 80 Mg Tab) 80 mg PO DAILY [facility] Last Admin: 07/31/21 07:57 Dose: 80 mg Documented by: Calcium Carbonate/Glycine (Calcium Carbonate 500 Mg Chewable) 1,000 mg PO Q4HR PRN PRN Reason: Dyspepsia Carvedilol (Carvedilol 3.125 Mg Tab) 3.125 mg PO BID [facility] Last Admin: 07/31/21 07:57 Dose: 3.125 mg Documented by: Cholecalciferol (Cholecalciferol 125 Mcg (5000 Iu) Tablet) 125 mcg PO DAILY [facility] Last Admin: 07/31/21 07:56 Dose: 125 mcg Documented by: Cyclobenzaprine HCl (Cyclobenzaprine 10 Mg Tab) 10 mg PO BID PRN PRN Reason: Muscle Spasm Ezetimibe (Ezetimibe 10 Mg Tab) 10 mg PO DAILY [facility] Last Admin: 07/31/21 07:57 Dose: 10 mg Documented by: Flecainide Acetate (Flecainide 50 Mg Tab) 50 mg PO BID [facility] Last Admin: 07/31/21 07:57 Dose: 50 mg Documented by: Lactated Ringer's (Lactated Ringers) 1,000 mls @ 50 mls/hr IV .Q20H [facility] Last Admin: 07/31/21 16:51 Dose: 50 mls/hr Documented by: Isosorbide Mononitrate (Isosorbide Mononitrate Er 60 Mg Tab.Er.24h) 60 mg PO DAILY [facility] Last Admin: 07/31/21 07:57 Dose: 60 mg Documented by: Lactulose (Lactulose 20 Gm/30 Ml Cup) 20 gm PO DAILY PRN PRN Reason: Constipation Melatonin (Melatonin 3 Mg Tablet) 3 mg PO HS PRN PRN Reason: Insomnia Methylprednisolone Sodium Succinate (Methylprednisolone Sod Succi 125 Mg/2 Ml Vial) 60 mg IV Q6HR [facility] Last Admin: 07/31/21 16:51 Dose: 60 mg Documented by: Multi-Ingred Cream/Lotion/Oil/Oint (Hydrophilic Cream 180 Gm Tube) 1 applic TOPICAL DAILY [facility]; Protocol Last Admin: 07/31/21 07:58 Dose: 1 applic Documented by: Naloxone HCl (Naloxone 0.4 Mg/Ml 1 Ml Vial) 0.2 mg IV Q2M PRN PRN Reason: Opioid Reversal Nifedipine (Nifedipine Xl 60 Mg Tab.Er.24) 60 mg PO DAILY [facility] Last Admin: 07/31/21 07:57 Dose: 60 mg Documented by: Nitroglycerin (Nitroglycerin Sl Tabs 0.4 Mg Tab) 0.4 mg SUBLINGUAL Q5M PRN PRN Reason: Chest Pain Ondansetron HCl (Ondansetron 4 Mg/2 Ml Vial) 4 mg IVP Q8HR PRN PRN Reason: Nausea And Vomiting Sodium Bicarbonate (Sodium Bicarbonate Tab 650 Mg Tab) 650 mg PO BID [facility] Last Admin: 07/31/21 07:57 Dose: 650 mg Documented by: Zinc Sulfate (Zinc Sulfate 220 Mg Cap) 220 mg PO DAILY [facility] Last Admin: 07/31/21 07:57 Dose: 220 mg Documented by: Past medical history to include: Atrial fibrillation, CAD with bypass in 2004, COPD, hypertension, CK D stage III, bladder cancer with urostomy, Social history: Patient smoked for 64 years average about 2 packs a day stopped 3 years ago. Alcohol occasionally. 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 Family history: Kidney disease Physical examination: VITAL SIGNS: 98, 59, 15, 104/63, 96% on 3 L GENERAL: Laying in bed, comfortable PSYCH: Alert and oriented x3; mood and affect normal NEUROLOGICAL: Cranial nerves grossly intact; no facial asymmetry, moving all 4 limbs Next is exam per pulmonary and nursing INVESTIGATIONS, reviewed in the clinical context: July 31: Potassium 5 BUN 60 creatinine 1.67 July 30: D-dimer 0.97 potassium 4.5 BUN 65 creatinine 1.79 July 29: White count 3.5 hemoglobin 11.3 d-dimer 0.83 potassium 5 bicarb 18 BUN 70 creatinine 2.2 to July 28: White count 4.6 hemoglobin 9.4 platelets 219 LDL 29.1 Troponin I: 0.212, 0.182, 0.178 ABG: PO2 is 75 Admission labs: Potassium 5 BUN 93 creatinine 4.34 UA positive for leukoesterase, WBC, RBC Coronavirus [PCR]: Detected EKG tracing personally reviewed by me-normal sinus rhythm, atrial fibrillation with a rate of 110 Chest x-ray film personally reviewed by me-hyperinflation. Some infiltrate. 2-D echocardiogram. Moderate concentric LVH. EF 50-55%. Assessment and plan: -Acute severe nausea vomiting diarrhea secondary to COVID-19: Improved Diet advanced -COVID-19, in a previously vaccinated patient Initial pulse ox was 90%. IV Solu-Medrol -Abdominal wound present for 3 years.: Cultures positive for Proteus mirabilis and staph aureus Being followed by wound care team -Positive troponin likely due to hemodynamic mismatch No clinical evidence of acute coronary syndrome -Persistent atrial fibrillation with rapid ventricular rate: Rate controlled Telemetry. IV heparin-changed to eliquis. Flecainide. Coreg 3.125 mg twice a day. -CAD with a prior history of bypass in 2004 Aspirin, Lipitor, Zetia, Coreg -Hypotensive from volume loss from nausea vomiting diarrhea decreased appetite: Better Hold off VENKAT inhibitor. -COPD in a previous smoker IV Solu-Medrol -Hyperlipidemia Crestor 40 mg daily -Normocytic anemia likely of chronic kidney disease -IV heparin monitoring: Discontinued Follow PTT -Chronic kidney disease stage III at baseline, from nephrosclerosis Follow renal function -Acute kidney injury, prerenal from nausea vomiting diarrhea: Improving IV fluids Radha son lactated Ringer's 50 mL an hour. IV Solu-Medrol. Other medications to continue. Eliquis. Appetite improving. Encourage up in chair.
[2021-07-31 20:19] LABS: Glucose,Whole Blood 192 mg/dL (75-99)
[2021-08-01] MEDS: LACTATED RINGERS 1,000 ML IV SCH (01:27)
[2021-08-01 06:17] LABS: Glucose,Whole Blood 121 mg/dL (75-99)
[2021-08-01] MEDS: methylPREDNISolone SOD SUCCI 125 MG/2 ML VIAL IV SCH ×2 (06:20→08:43)
[2021-08-01] MEDS: FLECAINIDE 50 MG TAB PO SCH ×2 (08:44→20:50)
[2021-08-01] MEDS: ATORVASTATIN 80 MG TAB PO SCH (08:44)
[2021-08-01] MEDS: ASPIRIN 81 MG PO SCH (08:44)
[2021-08-01] MEDS: ISOSORBIDE MONONITRATE ER 60 MG TAB.ER.24H PO SCH (08:44)
[2021-08-01] MEDS: carvediloL 3.125 MG TAB PO SCH ×2 (08:44→20:50)
[2021-08-01] MEDS: SODIUM BICARBONATE TAB 650 MG TAB PO SCH ×2 (08:44→20:50)
[2021-08-01] MEDS: ZINC SULFATE 220 MG CAP PO SCH (08:44)
[2021-08-01] MEDS: APIXABAN 2.5 MG TABLET PO SCH ×2 (08:44→20:50)
[2021-08-01] MEDS: EZETIMIBE 10 MG TAB PO SCH (08:44)
[2021-08-01] MEDS: HYDROPHILIC CREAM 180 GM TUBE TOPICAL SCH (08:45)
[2021-08-01] MEDS: CHOLECALCIFEROL 125 MCG (5000 IU) TABLET PO SCH (08:45)
--- NOTE | 2021-08-01 09:30 | P.PN ---
Subjective Progress Note Date: 08/01/21 Principal diagnosis: COVID-19 infection COPD not in exacerbation Chronic atrial fibrillation Non-STEMI Acute on chronic renal failure Ongoing nausea vomiting and diarrhea likely related to COVID-19 patient has been on liquid diet Coronary artery disease Hypertension and hypertensive on hold including VENKAT inhibitor's Dyslipidemia 08/01/2021, overall respiratory Petrin remains stable, denies any cough or sputum production diarrhea stable, Chuck functions continued to be stable with slow improvement, we'll start tapering down the steroids 07/31/2021, patient seen eval examined during the rounds each and remains on 2 L oxygen denies any cough or sputum production denies genital pain and diarrhea is improved, currently patient is being treated with direct oral anticoagulant, IV steroids continue show High-dose IV steroids follow-up chest x-ray continued to show some basal infiltrate likely go with pneumonia 07/30/2021, patient seen eval examined on 2 L oxygen, complaining of mild shortness of breath intermittent cough denies any chest pain, has active COVID-1 9 infection. Was a not complaining of any respiratory issues, and room air oxygen saturation dropped down to 89% on 2 L 93% patient is afebrile blood pressure 110/53 his diarrhea significantly improved currently patient is on the direct oral anticoagulant, now on IV heparin, oral Decadron once daily, his chest x-ray admission was negative for any infiltrate, BUN/creatinine improved to 70/2.2 Patient is a 81-year-old male who presented emergency department with ongoing complaint of diarrhea one day prior to coming into the hospital he was found for COVID-19 patient has the on and off exertional shortness of breath, and denies any hemoptysis denies any NSAID fever or chills, Past medical history significant for chronic atrial fibrillation, coronary artery disease status post CABG, COPD hypertension bladder cancer, status post urostomy, chronic kidney disease stage III, currently patient is being treated with the diabetic control anticoagulants, patient is a high risk for the complication with REM doesn't wear due to acute on chronic kidney disease currently being treated with dexamethasone 6 mg daily Objective - Vital Signs Vital signs: Vital Signs Temp 97.6 F 07/31/21 23:54 Pulse 63 08/01/21 04:00 Resp 18 08/01/21 04:00 BP 133/65 08/01/21 04:00 Pulse Ox 95 08/01/21 04:00 Intake & Output 07/31/21 08/01/21 08/01/21 18:59 06:59 18:59 Intake Total 240 Output Total 500 550 Balance -260 -550 Intake: Oral 240 Output: Urine 500 550 Other: Voiding Method Ileal Conduit (Left) Ileal Conduit (Left) # Voids 2 - Exam - Constitutional General appearance: average body habitus, disheveled - EENT Eyes: EOMI, PERRLA Ears: bilateral: normal - Neck Neck: normal ROM Carotids: bilateral: upstroke normal - Respiratory Respiratory: bilateral: diminished - Cardiovascular Rhythm: regular Heart sounds: normal: S1, S2 - Neurologic Neurologic: CNII-XII intact - Musculoskeletal Musculoskeletal: generalized weakness - Psychiatric Psychiatric: A&O x's 3, appropriate affect - Labs CBC & Chem 7: 07/29/21 05:56 07/31/21 07:47 Labs: Abnormal Lab Results - Last 24 Hours (Table) 07/31/21 07/31/21 07/31/21 Range/Units 12:09 16:43 20:16 POC Glucose (mg/dL) 141 H 156 H 192 H (75-99) mg/dL 08/01/21 Range/Units 06:13 POC Glucose (mg/dL) 121 H (75-99) mg/dL Microbiology - Last 24 Hours (Table) 07/29/21 01:00 Gram Stain - Preliminary Abdomen Wound Culture - Preliminary Proteus vulgaris Presumptive Staph aureus Assessment and Plan Assessment: COVID-19 infection COVID-19 pneumonia COPD not in exacerbation Chronic atrial fibrillation Non-STEMI Acute on chronic renal failure Elevated d-dimer Ongoing nausea vomiting and diarrhea likely related to COVID-19 patient has been on liquid diet Coronary artery disease Hypertension and hypertensive on hold including VENKAT inhibitor's Dyslipidemia Plan: Continue deep breathing sense incentive spirometry Reviewed chest x-ray, continue high-dose Solu-Medrol another day Continue hydration renal functions continued to improve Patient is not a candidate for IV REMdesivr at this time Continue anticoagulation with direct anticoagulants and monitor clinical course closely We'll follow closely Time with Patient: Greater than 30
[2021-08-01 10:04] LABS: Calcium 9.6 mg/dL (8.4-10.2); Potassium 5.1 mmol/L (3.5-5.1)
[2021-08-01] MEDS ORDERED: FUROSEMIDE 10 MG/ML 4 ML VIAL IV STA (10:54)
--- NOTE | 2021-08-01 10:57 | P.PN ---
Subjective Patient is seen for follow-up for acute kidney injury. He was admitted to the hospital with increased weakness and diarrhea. Patient the tested positive for COVID-19. No significant respiratory symptoms currently. The patient is maintained on IV fluids. He has had good urine output. Wolf inhibitors are on hold as blood pressure has been on the lower side with systolic as low as 93 mmHg. No significant complaints today sliding creatinine is down to 1.67 today from 4.3 on admission Mildly short of breath today Objective - Vital Signs Vital signs: Vital Signs Temp 97.6 F 08/01/21 08:40 Pulse 68 08/01/21 08:40 Resp 18 08/01/21 08:40 BP 132/66 08/01/21 08:40 Pulse Ox 99 08/01/21 08:40 Intake & Output 07/31/21 08/01/21 08/01/21 18:59 06:59 18:59 Intake Total 240 Output Total 500 550 275 Balance -260 -550 -275 Intake: Oral 240 Output: Urine 500 550 275 Other: Voiding Method Ileal Conduit (Left) Ileal Conduit (Left) Ileal Conduit (Left) # Voids 2 - Exam Patient is awake comfortable not in any acute distress. Examination of lower extremity shows trace edema Lungs and heart are not examined due to Covid isolation - Labs CBC & Chem 7: 07/29/21 05:56 08/01/21 09:13 Labs: Abnormal Lab Results - Last 24 Hours (Table) 07/31/21 07/31/21 07/31/21 Range/Units 12:09 16:43 20:16 D-Dimer (<0.60) mg/L FEU Chloride (98-107) mmol/L BUN (9-20) mg/dL Creatinine (0.66-1.25) mg/dL Glucose (74-99) mg/dL POC Glucose (mg/dL) 141 H 156 H 192 H (75-99) mg/dL 08/01/21 08/01/21 08/01/21 Range/Units 06:13 09:13 09:13 D-Dimer 1.09 H (<0.60) mg/L FEU Chloride 118 H (98-107) mmol/L BUN 61 H (9-20) mg/dL Creatinine 1.67 H (0.66-1.25) mg/dL Glucose 116 H (74-99) mg/dL POC Glucose (mg/dL) 121 H (75-99) mg/dL Microbiology - Last 24 Hours (Table) 07/29/21 01:00 Gram Stain - Preliminary Abdomen Wound Culture - Preliminary Proteus vulgaris Presumptive Staph aureus Assessment and Plan Assessment: 1. Acute kidney injury mostly prerenal and low blood pressure and currently improved with IV hydration. Serum creatinine is down from 4.3-1.67 mg/dL today. WOLF inhibitor's currently on hold. Patient is maintained on IV fluids. 2. Pyuria likely urinary tract infection. Urine culture was negative 3. Positive COVID-19 PCR with no significant respiratory symptoms and no significant abnormalities noted on chest x-ray. Currently on room air with O2 sats 92-94%. 4. Non-ST elevation [place] followed by cardiology, IV heparin now discontinued 5. Metabolic acidosis non-gap associated with renal failure and IV fluids, main tained on oral sodium bicarb 6. Nausea vomiting and diarrhea secondary to gastroenteritis possibly related to COVID-19 infection, currently improved 7. History of bladder cancer with cystectomy and urostomy 8. Chronic abdominal wound. 9. Mild volume overload Plan: Discontinue IV fluids Encourage increased oral intake Continue with oral sodium bicarb Avoid nephrotoxic agents Lasix 40 mg IV 1
[2021-08-01 11:46] LABS: Glucose,Whole Blood 138 mg/dL (75-99)
[2021-08-01] MEDS: ASCORBIC ACID 500 MG TAB PO SCH ×2 (12:02→20:50)
--- NOTE | 2021-08-01 14:32 | P.PN ---
Progress Note - Text Progress Note Date: 08/01/21 Chief Complaint: Weak and tired This is a 81-year-old patient who follows with Dr. Leandro Kitchen. Chronic stable medical conditions include atrial fibrillation, CAD with a history of bypass, COPD, hypertension, bladder cancer with urostomy, chronic kidney disease stage III. Does live alone. Patient been having 6 days of significant vomiting and diarrhea. He was feeling exhausted by yesterday. Was been able to get up. Appetite has been poor. He tested positive for COVID-19 yesterday. She has been vaccinated. No loss of taste or smell. Patient last diarrhea was yesterday. Feeling a bit better after getting fluids in the ER. No fever no chills. No headaches. No chest pain. Denies shortness of breath. Patient denies wound of the abdomen for about 3 years near the urostomy bag. Admitted with severe nausea vomiting diarrhea secondary to COVID-19. Treated symptomatically. Troponin leak due to hemodynamic mismatch. Hypotensive. Given IV fluids. Acute kidney injury. Also atrial fibrillation with uncontrolled rate. July 29: Laying in bed. Feels a bit less diet. No further diarrhea. No nausea vomiting. Did eat some breakfast. In atrial fibrillation rate controlled. July 30: Feeling a bit better. Appetite improved. No diarrhea. Remains in A. fib with heart rate around 100. On 2 L nasal cannula. Seen by wound care team for his abdominal wound. July 31: Remains in atrial fibrillation. Rate controlled. Oral intake be tter, eating about 75%. Less diet. Breathing better. Abdominal wound growing Proteus mirabilis and staph aureus. August 01: Tired. Some shortness of breath. Atrial fibrillation rate controlled. Oral intake fair. Did sit out of bed. Active Medications Acetaminophen (Acetaminophen Tab 325 Mg Tab) 650 mg PO Q6HR PRN PRN Reason: Mild Pain or Fever > 100.5 Alprazolam (Alprazolam 0.25 Mg Tab) 0.25 mg PO Q6HR PRN PRN Reason: Anxiety Apixaban (Apixaban 2.5 Mg Tablet) 2.5 mg PO BID [facility]; Protocol Last Admin: 08/01/21 08:44 Dose: 2.5 mg Documented by: Ascorbic Acid (Ascorbic Acid 500 Mg Tab) 500 mg PO BID [facility] Last Admin: 08/01/21 12:02 Dose: 500 mg Documented by: Aspirin (Aspirin 81 Mg) 81 mg PO DAILY [facility] Last Admin: 08/01/21 08:44 Dose: 81 mg Documented by: Atorvastatin Calcium (Atorvastatin 80 Mg Tab) 80 mg PO DAILY [facility] Last Admin: 08/01/21 08:44 Dose: 80 mg Documented by: Calcium Carbonate/Glycine (Calcium Carbonate 500 Mg Chewable) 1,000 mg PO Q4HR PRN PRN Reason: Dyspepsia Carvedilol (Carvedilol 3.125 Mg Tab) 3.125 mg PO BID [facility] Last Admin: 08/01/21 08:44 Dose: 3.125 mg Documented by: Cholecalciferol (Cholecalciferol 125 Mcg (5000 Iu) Tablet) 125 mcg PO DAILY [facility] Last Admin: 08/01/21 08:45 Dose: 125 mcg Documented by: Cyclobenzaprine HCl (Cyclobenzaprine 10 Mg Tab) 10 mg PO BID PRN PRN Reason: Muscle Spasm Ezetimibe (Ezetimibe 10 Mg Tab) 10 mg PO DAILY [facility] Last Admin: 08/01/21 08:44 Dose: 10 mg Documented by: Flecainide Acetate (Flecainide 50 Mg Tab) 50 mg PO BID [facility] Last Admin: 08/01/21 08:44 Dose: 50 mg Documented by: Isosorbide Mononitrate (Isosorbide Mononitrate Er 60 Mg Tab.Er.24h) 60 mg PO DAILY [facility] Last Admin: 08/01/21 08:44 Dose: 60 mg Documented by: Lactulose (Lactulose 20 Gm/30 Ml Cup) 20 gm PO DAILY PRN PRN Reason: Constipation Melatonin (Melatonin 3 Mg Tablet) 3 mg PO HS PRN PRN Reason: Insomnia Methylprednisolone Sodium Succinate (Methylprednisolone Sod Succi 40 Mg/Ml 1 Ml Vial) 40 mg IV Q12HR [facility] Multi-Ingred Cream/Lotion/Oil/Oint (Hydrophilic Cream 180 Gm Tube) 1 applic TOPICAL DAILY [facility]; Protocol Last Admin: 08/01/21 08:45 Dose: 1 applic Documented by: Naloxone HCl (Naloxone 0.4 Mg/Ml 1 Ml Vial) 0.2 mg IV Q2M PRN PRN Reason: Opioid Reversal Nifedipine (Nifedipine Xl 60 Mg Tab.Er.24) 60 mg PO DAILY [facility] Last Admin: 08/01/21 08:44 Dose: 60 mg Documented by: Nitroglycerin (Nitroglycerin Sl Tabs 0.4 Mg Tab) 0.4 mg SUBLINGUAL Q5M PRN PRN Reason: Chest Pain Ondansetron HCl (Ondansetron 4 Mg/2 Ml Vial) 4 mg IVP Q8HR PRN PRN Reason: Nausea And Vomiting Sodium Bicarbonate (Sodium Bicarbonate Tab 650 Mg Tab) 650 mg PO BID [facility] Last Admin: 08/01/21 08:44 Dose: 650 mg Documented by: Zinc Sulfate (Zinc Sulfate 220 Mg Cap) 220 mg PO DAILY [facility] Last Admin: 08/01/21 08:44 Dose: 220 mg Documented by: Past medical history to include: Atrial fibrillation, CAD with bypass in 2004, COPD, hypertension, CK D stage III, bladder cancer with urostomy, Social history: Patient smoked for 64 years average about 2 packs a day stopped 3 years ago. Alcohol occasionally. 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 Family history: Kidney disease Physical examination: VITAL SIGNS: 97.5, 73, 18, 140s/68, 97% on 2 L GENERAL: Laying in bed, tired PSYCH: Alert and oriented x3; mood and affect normal NEUROLOGICAL: Cranial nerves grossly intact; no facial asymmetry, moving all 4 limbs Next is exam per pulmonary and nursing INVESTIGATIONS, reviewed in the clinical context: August 01: D-dimer 1.09 potassium 5.1 creatinine 1.67 July 31: Potassium 5 BUN 60 creatinine 1.67 July 30: D-dimer 0.97 potassium 4.5 BUN 65 creatinine 1.79 July 29: White count 3.5 hemoglobin 11.3 d-dimer 0.83 potassium 5 bicarb 18 BUN 70 creatinine 2.2 to July 28: White count 4.6 hemoglobin 9.4 platelets 219 LDL 29.1 Troponin I: 0.212, 0.182, 0.178 ABG: PO2 is 75 Admission labs: Potassium 5 BUN 93 creatinine 4.34 UA positive for leukoesterase, WBC, RBC Coronavirus [PCR]: Detected EKG tracing personally reviewed by me-normal sinus rhythm, atrial fibrillation with a rate of 110 Chest x-ray film personally reviewed by me-hyperinflation. Some infiltrate. 2-D echocardiogram. Moderate concentric LVH. EF 50-55%. Assessment and plan: -Acute severe nausea vomiting diarrhea secondary to COVID-19: Improved Diet advanced -COVID-19, in a previously vaccinated patient Initial pulse ox was 90%. IV Solu-Medrol -Abdominal wound present for 3 years.: Cultures positive for Proteus mirabilis and staph aureus Being followed by wound care team -Positive troponin likely due to hemodynamic mismatch No clinical evidence of acute coronary syndrome -Persistent atrial fibrillation with rapid ventricular rate: Rate controlled Telemetry. IV heparin-changed to eliquis. Flecainide. Coreg 3.125 mg twice a day. -CAD with a prior history of bypass in 2004 Aspirin, Lipitor, Zetia, Coreg -Hypotensive from volume loss from nausea vomiting diarrhea decreased appetite: Better Hold off VENKAT inhibitor. -COPD in a previous smoker IV Solu-Medrol -Hyperlipidemia Crestor 40 mg daily -Normocytic anemia likely of chronic kidney disease -IV heparin monitoring: Discontinued Follow PTT -Chronic kidney disease stage III at baseline, from nephrosclerosis Follow renal function -Acute kidney injury, prerenal from nausea vomiting diarrhea: Improving Admission creatinine 4.34. Fluids discontinued.. IV Solu-Medrol cutback.. . Eliquis. Patient to use incentive spirometry. Follow labs.
[2021-08-01 16:47] LABS: Glucose,Whole Blood 130 mg/dL (75-99)
[2021-08-01 20:02] LABS: Glucose,Whole Blood 178 mg/dL (75-99)
[2021-08-01] MEDS: INSULIN ASPART (NovoLOG) 100 UNIT/ML VIAL SQ SCH (20:49)
[2021-08-01] MEDS: methylPREDNISolone SOD SUCCI 40 MG/ML 1 ML VIAL IV SCH (20:49)
[2021-08-02 06:36] LABS: Glucose,Whole Blood 104 mg/dL (75-99)
[2021-08-02] MEDS: INSULIN ASPART (NovoLOG) 100 UNIT/ML VIAL SQ SCH ×4 (06:50→20:53)
[2021-08-02 08:11] LABS: Basophils % (A) 0 %; Eosinophils % (A) 0 %; HCT 33.3 % (39.0-53.0); HGB 10.2 gm/dL (13.0-17.5); Hypochromasia Marked; Lymphocytes # (A) 0.4 k/uL (1.0-4.8); Lymphocytes % (A) 4 %; MCH 31.5 pg (25.0-35.0); MCHC 30.6 g/dL (31.0-37.0); MCV 103.1 fL (80.0-100.0); Macrocytosis Slight; Monocytes # (A) 0.6 k/uL (0-1.0); Monocytes % (A) 6 %; Neutrophils # (A) 9.5 k/uL (1.3-7.7); Neutrophils % (A) 89 %; Platelet Count 337 k/uL (150-450); RBC 3.23 m/uL (4.30-5.90); RDW 14.7 % (11.5-15.5); WBC 10.6 k/uL (3.8-10.6)
--- NOTE | 2021-08-02 08:29 | P.PN ---
Subjective Progress Note Date: 08/02/21 Principal diagnosis: COVID-19 infection COVID-19 pneumonia COPD not in exacerbation Chronic atrial fibrillation Non-STEMI Acute on chronic renal failure Ongoing nausea vomiting and diarrhea likely related to COVID-19 patient has been on liquid diet Coronary artery disease Hypertension and hypertensive on hold including VENKAT inhibitor's Dyslipidemia 08/02/2021, patient seen eval examined during the rounds labs reviewed medications reviewed care plan discussed, respiratory status remains marginal patient gets short of breath on activity and exertion, on 2 L saturation is 94% blood pressure last check was 140/70 respiratory rate is 16-18 heart rate is 66, labs from today reviewed, white cell count 10,600 hemoglobin and hematocrit is 10.2/33.3 platelet count of 3 and 37,000, d-dimer 1.09, chemistry is not back yet compared to yesterday potassium was 5.1 BUN/creatinine remains stable but elevated 61/1.67, patient remains on her liquids 2.5 mg 2 times a day along with the statins, Coreg, on flecainide, IV Solu-Medrol, bicarb and anti-inflammatory supplements 08/01/2021, overall respiratory Petrin remains stable, denies any cough or sputum production diarrhea stable, Chuck functions continued to be stable with slow improvement, we'll start tapering down the steroids 07/31/2021, patient seen evbaljinder examined during the rounds each and remains on 2 L oxygen denies any cough or sputum production denies genital pain and diarrhea is improved, currently patient is being treated with direct oral anticoagulant, IV steroids continue show High-dose IV steroids follow-up chest x-ray continued to show some basal infiltrate likely go with pneumonia 07/30/2021, patient seen eval examined on 2 L oxygen, complaining of mild shortness of breath intermittent cough denies any chest pain, has active COVID- 19 infection. Was a not complaining of any respiratory issues, and room air oxygen saturation dropped down to 89% on 2 L 93% patient is afebrile blood pressure 110/53 his diarrhea significantly improved currently patient is on the direct oral anticoagulant, now on IV heparin, oral Decadron once daily, his chest x-ray admission was negative for any infiltrate, BUN/creatinine improved to 70/2.2 Patient is a 81-year-old male who presented emergency department with ongoing complaint of diarrhea one day prior to coming into the hospital he was found for COVID-19 patient has the on and off exertional shortness of breath, and denies any hemoptysis denies any NSAID fever or chills, Past medical history significant for chronic atrial fibrillation, coronary a rtery disease status post CABG, COPD hypertension bladder cancer, status post urostomy, chronic kidney disease stage III, currently patient is being treated with the diabetic control anticoagulants, patient is a high risk for the complication with REM doesn't wear due to acute on chronic kidney disease currently being treated with dexamethasone 6 mg daily Objective - Vital Signs Vital signs: Vital Signs Temp 97.7 F 08/01/21 20:00 Pulse 66 08/02/21 03:50 Resp 17 08/02/21 03:50 BP 141/71 08/02/21 03:50 Pulse Ox 94 L 08/02/21 03:50 Intake & Output 08/01/21 08/02/21 08/02/21 18:59 06:59 18:59 Intake Total 300 Output Total 475 1200 Balance -475 -900 Intake: Oral 300 Output: Urine 475 1200 Other: Voiding Method Ileal Conduit (Left) Ileal Conduit (Left) # Voids 1 # Bowel Movements 0 - Exam - Constitutional General appearance: average body habitus, disheveled - EENT Eyes: EOMI, PERRLA Ears: bilateral: normal - Neck Neck: normal ROM Carotids: bilateral: upstroke normal - Respiratory Respiratory: bilateral: diminished - Cardiovascular Rhythm: regular Heart sounds: normal: S1, S2 - Neurologic Neurologic: CNII-XII intact - Musculoskeletal Musculoskeletal: generalized weakness - Psychiatric Psychiatric: A&O x's 3, appropriate affect - Labs CBC & Chem 7: 08/02/21 07:33 08/01/21 09:13 Labs: Abnormal Lab Results - Last 24 Hours (Table) 08/01/21 08/01/21 08/01/21 Range/Units 09:13 09:13 11:43 RBC (4.30-5.90) m/uL Hgb (13.0-17.5) gm/dL Hct (39.0-53.0) % MCV (80.0-100.0) fL MCHC (31.0-37.0) g/dL Neutrophils # (1.3-7.7) k/uL Lymphocytes # (1.0-4.8) k/uL D-Dimer 1.09 H (<0.60) mg/L FEU Chloride 118 H (98-107) mmol/L BUN 61 H (9-20) mg/dL Creatinine 1.67 H (0.66-1.25) mg/dL Glucose 116 H (74-99) mg/dL POC Glucose (mg/dL) 138 H (75-99) mg/dL 08/01/21 08/01/21 08/02/21 Range/Units 16:46 19:59 06:22 RBC (4.30-5.90) m/uL Hgb (13.0-17.5) gm/dL Hct (39.0-53.0) % MCV (80.0-100.0) fL MCHC (31.0-37.0) g/dL Neutrophils # (1.3-7.7) k/uL Lymphocytes # (1.0-4.8) k/uL D-Dimer (<0.60) mg/L FEU Chloride (98-107) mmol/L BUN (9-20) mg/dL Creatinine (0.66-1.25) mg/dL Glucose (74-99) mg/dL POC Glucose (mg/dL) 130 H 178 H 104 H (75-99) mg/dL 08/02/21 08/02/21 Range/Units 07:33 07:33 RBC 3.23 L (4.30-5.90) m/uL Hgb 10.2 L (13.0-17.5) gm/dL Hct 33.3 L (39.0-53.0) % MCV 103.1 H (80.0-100.0) fL MCHC 30.6 L (31.0-37.0) g/dL Neutrophils # 9.5 H (1.3-7.7) k/uL Lymphocytes # 0.4 L (1.0-4.8) k/uL D-Dimer 1.09 H (<0.60) mg/L FEU Chloride (98-107) mmol/L BUN (9-20) mg/dL Creatinine (0.66-1.25) mg/dL Glucose (74-99) mg/dL POC Glucose (mg/dL) (75-99) mg/dL Microbiology - Last 24 Hours (Table) 02/09/22 01:00 Gram Stain - Final Abdomen Wound Culture - Final Proteus vulgaris Staphylococcus aureus Assessment and Plan Assessment: COVID-19 infection COVID-19 pneumonia COPD not in exacerbation Chronic atrial fibrillation Non-STEMI Acute on chronic renal failure Elevated d-dimer Ongoing nausea vomiting and diarrhea likely related to COVID-19 patient has been on liquid diet Coronary artery disease Hypertension and hypertensive on hold including VENKAT inhibitor's Dyslipidemia Plan: Continue deep breathing sense incentive spirometry Reviewed chest x-ray, continue Solu-Medrol Continue gentle hydration and monitor observe renal functions closely. , Lately renal function appeared to have stabilized and a higher range Patient is not a candidate for IV REMdesivr at this time Continue anticoagulation with direct anticoagulants and monitor clinical course closely We'll follow closely Time with Patient: Greater than 30
[2021-08-02 08:32] LABS: Calcium 10.2 mg/dL (8.4-10.2); Potassium 5.7 mmol/L (3.5-5.1)
[2021-08-02] MEDS: methylPREDNISolone SOD SUCCI 40 MG/ML 1 ML VIAL IV SCH ×2 (08:59→20:53)
[2021-08-02] MEDS: CHOLECALCIFEROL 125 MCG (5000 IU) TABLET PO SCH (08:59)
[2021-08-02] MEDS: APIXABAN 2.5 MG TABLET PO SCH ×2 (08:59→20:53)
[2021-08-02] MEDS: carvediloL 3.125 MG TAB PO SCH ×2 (08:59→20:53)
[2021-08-02] MEDS: FLECAINIDE 50 MG TAB PO SCH ×2 (08:59→20:53)
[2021-08-02] MEDS: ISOSORBIDE MONONITRATE ER 60 MG TAB.ER.24H PO SCH (09:00)
[2021-08-02] MEDS: ZINC SULFATE 220 MG CAP PO SCH (09:00)
[2021-08-02] MEDS: SODIUM BICARBONATE TAB 650 MG TAB PO SCH (09:00)
[2021-08-02] MEDS: ASCORBIC ACID 500 MG TAB PO SCH ×2 (09:00→20:53)
[2021-08-02] MEDS: ATORVASTATIN 80 MG TAB PO SCH (09:00)
[2021-08-02] MEDS: EZETIMIBE 10 MG TAB PO SCH (09:00)
[2021-08-02] MEDS: ASPIRIN 81 MG PO SCH (09:00)
[2021-08-02] MEDS: FUROSEMIDE 10 MG/ML 4 ML VIAL IV SCH (10:22)
[2021-08-02] MEDS: HYDROPHILIC CREAM 180 GM TUBE TOPICAL SCH (10:23)
--- NOTE | 2021-08-02 11:12 | P.PN ---
Subjective Patient is seen for follow-up for acute kidney injury. He was admitted to the hospital with increased weakness and diarrhea. Patient the tested positive for COVID-19. No significant respiratory symptoms currently. The patient is status post IV fluids. He has had good urine output. No significant complaints today serum creatinine is down to 1.7 from 4.3 on admission Status post IV Lasix yesterday for mild volume overload Objective - Vital Signs Vital signs: Vital Signs Temp 97.7 F 08/02/21 08:55 Pulse 58 L 08/02/21 08:55 Resp 18 08/02/21 08:55 BP 153/91 08/02/21 08:55 Pulse Ox 92 L 08/02/21 08:55 Intake & Output 08/01/21 08/02/21 08/02/21 18:59 06:59 18:59 Intake Total 300 Output Total 475 1200 Balance -475 -900 Intake: Oral 300 Output: Urine 475 1200 Other: Voiding Method Ileal Conduit (Left) Ileal Conduit (Left) Ileal Conduit (Left) # Voids 1 # Bowel Movements 0 - Exam Patient is awake comfortable not in any acute distress. Examination of lower extremity shows trace edema Lungs and heart are not examined due to Covid isolation - Labs CBC & Chem 7: 08/02/21 07:33 08/02/21 07:33 Labs: Abnormal Lab Results - Last 24 Hours (Table) 08/01/21 08/01/21 08/01/21 Range/Units 11:43 16:46 19:59 RBC (4.30-5.90) m/uL Hgb (13.0-17.5) gm/dL Hct (39.0-53.0) % MCV (80.0-100.0) fL MCHC (31.0-37.0) g/dL Neutrophils # (1.3-7.7) k/uL Lymphocytes # (1.0-4.8) k/uL D-Dimer (<0.60) mg/L FEU Potassium (3.5-5.1) mmol/L Chloride (98-107) mmol/L BUN (9-20) mg/dL Creatinine (0.66-1.25) mg/dL Glucose (74-99) mg/dL POC Glucose (mg/dL) 138 H 130 H 178 H (75-99) mg/dL 08/02/21 08/02/21 08/02/21 Range/Units 06:22 07:33 07:33 RBC (4.30-5.90) m/uL Hgb (13.0-17.5) gm/dL Hct (39.0-53.0) % MCV (80.0-100.0) fL MCHC (31.0-37.0) g/dL Neutrophils # (1.3-7.7) k/uL Lymphocytes # (1.0-4.8) k/uL D-Dimer 1.09 H (<0.60) mg/L FEU Potassium 5.7 H (3.5-5.1) mmol/L Chloride 118 H (98-107) mmol/L BUN 64 H (9-20) mg/dL Creatinine 1.75 H (0.66-1.25) mg/dL Glucose 101 H (74-99) mg/dL POC Glucose (mg/dL) 104 H (75-99) mg/dL 08/02/21 Range/Units 07:33 RBC 3.23 L (4.30-5.90) m/uL Hgb 10.2 L (13.0-17.5) gm/dL Hct 33.3 L (39.0-53.0) % MCV 103.1 H (80.0-100.0) fL MCHC 30.6 L (31.0-37.0) g/dL Neutrophils # 9.5 H (1.3-7.7) k/uL Lymphocytes # 0.4 L (1.0-4.8) k/uL D-Dimer (<0.60) mg/L FEU Potassium (3.5-5.1) mmol/L Chloride (98-107) mmol/L BUN (9-20) mg/dL Creatinine (0.66-1.25) mg/dL Glucose (74-99) mg/dL POC Glucose (mg/dL) (75-99) mg/dL Microbiology - Last 24 Hours (Table) 07/29/21 01:00 Gram Stain - Final Abdomen Wound Culture - Final Proteus vulgaris Staphylococcus aureus Assessment and Plan Assessment: 1. Acute kidney injury mostly prerenal and low blood pressure and currently improved with IV hydration. Serum creatinine is down from 4.3 to 1.7 mg/dL today. VENKAT inhibitor's currently on hold. Patient is status post IV fluids. 2. Pyuria likely urinary tract infection. Urine culture was negative 3. Positive COVID-19 PCR with no significant respiratory symptoms and no significant abnormalities noted on chest x-ray. 4. Non-ST elevation MN followed by cardiology, IV heparin now discontinued 5. Metabolic acidosis non-gap associated with renal failure and IV fluids, maintained on oral sodium bicarb 6. Nausea vomiting and diarrhea secondary to gastroenteritis possibly related to COVID-19 infection, currently improved 7. History of bladder cancer with cystectomy and urostomy 8. Chronic abdominal wound. 9. Mild volume overload Plan: Continue off of IV fluids Encourage increased oral intake DC oral sodium bicarb Avoid nephrotoxic agents Lasix 40 mg IV daily
[2021-08-02 11:33] LABS: Glucose,Whole Blood 126 mg/dL (75-99)
[2021-08-02] MEDS ORDERED: SODIUM POLYSTYRENE SULFONATE 15 GM/60 ML BOTTLE PO STA (13:46)
--- NOTE | 2021-08-02 14:48 | P.PN ---
Progress Note - Text Progress Note Date: 08/02/21 Chief Complaint: Weak and tired This is a 81-year-old patient who follows with Dr. Leandro Kitchen. Chronic stable medical conditions include atrial fibrillation, CAD with a history of bypass, COPD, hypertension, bladder cancer with urostomy, chronic kidney disease stage III. Does live alone. Patient been having 6 days of significant vomiting and diarrhea. He was feeling exhausted by yesterday. Was been able to get up. Appetite has been poor. He tested positive for COVID-19 yesterday. She has been vaccinated. No loss of taste or smell. Patient last diarrhea was yesterday. Feeling a bit better after getting fluids in the ER. No fever no chills. No headaches. No chest pain. Denies shortness of breath. Patient denies wound of the abdomen for about 3 years near the urostomy bag. Admitted with severe nausea vomiting diarrhea secondary to COVID-19. Treated symptomatically. Troponin leak due to hemodynamic mismatch. Hypotensive. Given IV fluids. Acute kidney injury. Also atrial fibrillation with uncontrolled rate. July 29: Laying in bed. Feels a bit less diet. No further diarrhea. No nausea vomiting. Did eat some breakfast. In atrial fibrillation rate controlled. July 30: Feeling a bit better. Appetite improved. No diarrhea. Remains in A. fib with heart rate around 100. On 2 L nasal cannula. Seen by wound care team for his abdominal wound. July 31: Remains in atrial fibrillation. Rate controlled. Oral intake be tter, eating about 75%. Less diet. Breathing better. Abdominal wound growing Proteus mirabilis and staph aureus. August 01: Tired. Some shortness of breath. Atrial fibrillation rate controlled. Oral intake fair. Did sit out of bed. August 02: Potassium elevated. Given Kayexalate. IV Lasix ordered by a from. Eating some. Up in chair. Active Medications Acetaminophen (Acetaminophen Tab 325 Mg Tab) 650 mg PO Q6HR PRN PRN Reason: Mild Pain or Fever > 100.5 Alprazolam (Alprazolam 0.25 Mg Tab) 0.25 mg PO Q6HR PRN PRN Reason: Anxiety Apixaban (Apixaban 2.5 Mg Tablet) 2.5 mg PO BID [facility]; Protocol Last Admin: 08/02/21 08:59 Dose: 2.5 mg Documented by: Ascorbic Acid (Ascorbic Acid 500 Mg Tab) 500 mg PO BID [facility] Last Admin: 08/02/21 09:00 Dose: 500 mg Documented by: Aspirin (Aspirin 81 Mg) 81 mg PO DAILY [facility] Last Admin: 08/02/21 09:00 Dose: 81 mg Documented by: Atorvastatin Calcium (Atorvastatin 80 Mg Tab) 80 mg PO DAILY [facility] Last Admin: 08/02/21 09:00 Dose: 80 mg Documented by: Calcium Carbonate/Glycine (Calcium Carbonate 500 Mg Chewable) 1,000 mg PO Q4HR PRN PRN Reason: Dyspepsia Carvedilol (Carvedilol 3.125 Mg Tab) 3.125 mg PO BID [facility] Last Admin: 08/02/21 08:59 Dose: 3.125 mg Documented by: Cholecalciferol (Cholecalciferol 125 Mcg (5000 Iu) Tablet) 125 mcg PO DAILY [facility] Last Admin: 08/02/21 08:59 Dose: 125 mcg Documented by: Cyclobenzaprine HCl (Cyclobenzaprine 10 Mg Tab) 10 mg PO BID PRN PRN Reason: Muscle Spasm Ezetimibe (Ezetimibe 10 Mg Tab) 10 mg PO DAILY [facility] Last Admin: 08/02/21 09:00 Dose: 10 mg Documented by: Flecainide Acetate (Flecainide 50 Mg Tab) 50 mg PO BID [facility] Last Admin: 08/02/21 08:59 Dose: 50 mg Documented by: Furosemide (Furosemide 10 Mg/Ml 4 Ml Vial) 40 mg IV DAILY [facility] Last Admin: 08/02/21 10:22 Dose: 40 mg Documented by: Insulin Aspart (Insulin Aspart (Novolog) 100 Unit/Ml Vial) 0 unit SQ [facility]; Protocol Last Admin: 08/02/21 11:44 Dose: Not Given Documented by: Isosorbide Mononitrate (Isosorbide Mononitrate Er 60 Mg Tab.Er.24h) 60 mg PO DAILY [facility] Last Admin: 08/02/21 09:00 Dose: 60 mg Documented by: Lactulose (Lactulose 20 Gm/30 Ml Cup) 20 gm PO DAILY PRN PRN Reason: Constipation Melatonin (Melatonin 3 Mg Tablet) 3 mg PO HS PRN PRN Reason: Insomnia Methylprednisolone Sodium Succinate (Methylprednisolone Sod Succi 40 Mg/Ml 1 Ml Vial) 40 mg IV Q12HR [facility] Last Admin: 08/02/21 08:59 Dose: 40 mg Documented by: Multi-Ingred Cream/Lotion/Oil/Oint (Hydrophilic Cream 180 Gm Tube) 1 applic TOPICAL DAILY [facility]; Protocol Last Admin: 08/02/21 10:23 Dose: 1 applic Documented by: Naloxone HCl (Naloxone 0.4 Mg/Ml 1 Ml Vial) 0.2 mg IV Q2M PRN PRN Reason: Opioid Reversal Nifedipine (Nifedipine Xl 60 Mg Tab.Er.24) 60 mg PO DAILY [facility] Last Admin: 08/02/21 09:00 Dose: 60 mg Documented by: Nitroglycerin (Nitroglycerin Sl Tabs 0.4 Mg Tab) 0.4 mg SUBLINGUAL Q5M PRN PRN Reason: Chest Pain Ondansetron HCl (Ondansetron 4 Mg/2 Ml Vial) 4 mg IVP Q8HR PRN PRN Reason: Nausea And Vomiting Zinc Sulfate (Zinc Sulfate 220 Mg Cap) 220 mg PO DAILY [facility] Last Admin: 08/02/21 09:00 Dose: 220 mg Documented by: Past medical history to include: Atrial fibrillation, CAD with bypass in 2004, COPD, hypertension, CK D stage III, bladder cancer with urostomy, Social history: Patient smoked for 64 years average about 2 packs a day stopped 3 years ago. Alcohol occasionally. 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 Family history: Kidney disease Physical examination: VITAL SIGNS: 97.5, 38, 18, 121/69, 96% on 2 L GENERAL: Laying in bed, tired PSYCH: Alert and oriented x3; mood and affect normal NEUROLOGICAL: Cranial nerves grossly intact; no facial asymmetry, moving all 4 limbs Next is exam per pulmonary and nursing INVESTIGATIONS, reviewed in the clinical context: August 02: White count 10.6 hemoglobin 10.2 potassium 5.7 BUN 64 creatinine 1.75 d-dimer 1.09 August 01: D-dimer 1.09 potassium 5.1 creatinine 1.67 July 31: Potassium 5 BUN 60 creatinine 1.67 July 30: D-dimer 0.97 potassium 4.5 BUN 65 creatinine 1.79 July 29: White count 3.5 hemoglobin 11.3 d-dimer 0.83 potassium 5 bicarb 18 BUN 70 creatinine 2.2 to July 28: White count 4.6 hemoglobin 9.4 platelets 219 LDL 29.1 Troponin I: 0.212, 0.182, 0.178 ABG: PO2 is 75 Admission labs: Potassium 5 BUN 93 creatinine 4.34 UA positive for leukoesterase, WBC, RBC Coronavirus [PCR]: Detected EKG tracing personally reviewed by me-normal sinus rhythm, atrial fibrillation with a rate of 110 Chest x-ray film personally reviewed by me-hyperinflation. Some infiltrate. 2-D echocardiogram. Moderate concentric LVH. EF 50-55%. Assessment and plan: -Acute severe nausea vomiting diarrhea secondary to COVID-19: Improved Diet advanced -COVID-19, in a previously vaccinated patient Initial pulse ox was 90%. IV Solu-Medrol -Abdominal wound present for 3 years.: Cultures positive for Proteus mirabilis and staph aureus Being followed by wound care team -Positive troponin likely due to hemodynamic mismatch No clinical evidence of acute coronary syndrome -Persistent atrial fibrillation with rapid ventricular rate: Rate controlled Telemetry. IV heparin-changed to eliquis. Flecainide. Coreg 3.125 mg twice a day. -CAD with a prior history of bypass in 2004 Aspirin, Lipitor, Zetia, Coreg -Hypotensive from volume loss from nausea vomiting diarrhea decreased appetite: Better Hold off VENKAT inhibitor. -COPD in a previous smoker IV Solu-Medrol -Hyperlipidemia Crestor 40 mg daily -Normocytic anemia likely of chronic kidney disease -IV heparin monitoring: Discontinued Follow PTT -Chronic kidney disease stage III at baseline, from nephrosclerosis Follow renal function -Acute kidney injury, prerenal from nausea vomiting diarrhea: Improving Admission creatinine 4.34. Creatinine down to 1.75 -Hyperkalemia from CK D Renal diet. Kayexalate. Kayexalate. IV Solu-Medrol . Eliquis. Discussed with patient. Increase activity. Repeat labs
[2021-08-02 16:17] LABS: Glucose,Whole Blood 164 mg/dL (75-99)
[2021-08-02 20:20] LABS: Glucose,Whole Blood 133 mg/dL (75-99)
[2021-08-03 06:20] LABS: Glucose,Whole Blood 98 mg/dL (75-99)
[2021-08-03] MEDS: INSULIN ASPART (NovoLOG) 100 UNIT/ML VIAL SQ SCH ×4 (06:36→20:08)
--- NOTE | 2021-08-03 09:02 | P.PN ---
Subjective Patient is seen in follow-up for acute kidney injury. On 2 L nasal cannula. Blood pressure stable. No vomiting or diarrhea. On IV Lasix. Nonoliguric. Has a urostomy. Vital signs are stable. General: The patient appeared well nourished and normally developed. HEENT: Head exam is unremarkable. LUNGS: Breath sounds decreased. HEART: Rate and Rhythm are regular. ABDOMEN: No distention. Urostomy noted. EXTREMITITES: No edema. Objective - Vital Signs Vital signs: Vital Signs Temp 97.1 F L 08/03/21 04:00 Pulse 78 08/03/21 04:00 Resp 18 08/03/21 04:00 BP 138/68 08/03/21 04:00 Pulse Ox 97 08/03/21 04:00 Intake & Output 08/02/21 08/03/21 08/03/21 18:59 06:59 18:59 Intake Total 120 240 Output Total 425 1175 Balance -305 -935 Intake: Oral 120 240 Output: Gastric Drainage 275 Urine 425 900 Other: Voiding Method Ileal Conduit (Left) Ileal Conduit (Left) - Labs CBC & Chem 7: 08/02/21 07:33 08/02/21 18:36 Labs: Abnormal Lab Results - Last 24 Hours (Table) 08/02/21 08/02/21 08/02/21 Range/Units 11:32 16:15 20:19 POC Glucose (mg/dL) 126 H 164 H 133 H (75-99) mg/dL Assessment and Plan Plan: Assessment: 1. Acute kidney injury mostly prerenal secondary to hypovolemia and hypotension. Creatinine was 4.34 on admission and stable at 1.75 yesterday. Unknown baseline renal function. 2. Acute hypoxia respiratory failure secondary to COVID-19 infection. 3. Metabolic acidosis secondary to acute kidney injury and IV fluids. Improved. 4. History of bladder scan continues status post cystectomy. Has urostomy. 5. Mild volume overload. On IV Lasix. 6. Benign hypertension. Plan: Maintain IV Lasix for now. Avoid nephrotoxins. Wean FiO2. Continue to monitor renal function and urine output. Follow-up morning labs.
[2021-08-03] MEDS: ASCORBIC ACID 500 MG TAB PO SCH ×2 (09:46→20:08)
[2021-08-03] MEDS: CHOLECALCIFEROL 125 MCG (5000 IU) TABLET PO SCH (09:46)
[2021-08-03] MEDS: FUROSEMIDE 10 MG/ML 4 ML VIAL IV SCH (09:46)
[2021-08-03] MEDS: carvediloL 3.125 MG TAB PO SCH ×2 (09:46→20:07)
[2021-08-03] MEDS: FLECAINIDE 50 MG TAB PO SCH ×2 (09:47→20:07)
[2021-08-03] MEDS: methylPREDNISolone SOD SUCCI 40 MG/ML 1 ML VIAL IV SCH (09:47)
[2021-08-03] MEDS: APIXABAN 2.5 MG TABLET PO SCH ×2 (09:47→20:07)
[2021-08-03] MEDS: EZETIMIBE 10 MG TAB PO SCH (09:47)
[2021-08-03] MEDS: ISOSORBIDE MONONITRATE ER 60 MG TAB.ER.24H PO SCH (09:47)
[2021-08-03] MEDS: ATORVASTATIN 80 MG TAB PO SCH (09:47)
[2021-08-03] MEDS: ZINC SULFATE 220 MG CAP PO SCH (09:47)
[2021-08-03] MEDS: ASPIRIN 81 MG PO SCH (09:47)
[2021-08-03] MEDS: HYDROPHILIC CREAM 180 GM TUBE TOPICAL SCH (09:48)
[2021-08-03 09:50] LABS: Calcium 9.8 mg/dL (8.4-10.2); Potassium 5.1 mmol/L (3.5-5.1)
[2021-08-03 12:00] LABS: Glucose,Whole Blood 92 mg/dL (75-99)
[2021-08-03] MEDS ORDERED: DEXTROSE 5% IN WATER 1,000 ML IV SCH (14:00)
[2021-08-03 16:35] LABS: Glucose,Whole Blood 157 mg/dL (75-99)
--- NOTE | 2021-08-03 17:08 | P.PN ---
Subjective Progress Note Date: 08/03/21 Principal diagnosis: COVID-19 infection COVID-19 pneumonia COPD not in exacerbation Chronic atrial fibrillation Non-STEMI Acute on chronic renal failure Ongoing nausea vomiting and diarrhea likely related to COVID-19 patient has been on liquid diet Coronary artery disease Hypertension and hypertensive on hold including VENKAT inhibitor's Dyslipidemia 08/03/2021, patient seen eval examined, intermittent shortness of breath is present denies any chest pain, patient is on 2 L oxygen saturation 98%, blood pressure stable 118/71, respiratory 18, Mr. today reveal sodium is 146, potassium 5.1, BUN/creatinine remains stable 66/1.6 overall appears not to be changing much. Patient is on and requests 2.5 mg 2 times a day with vitamin C aspirin atorvastatin Coreg, Solu-Medrol IV 40 every 12 hour likely, plan to get chest x-ray if remains stable changed to Decadron to finish ten-day therapy for COVID-19 infection and pneumonia 08/02/2021, patient seen eval examined during the rounds labs reviewed medications reviewed care plan discussed, respiratory status remains marginal patient gets short of breath on activity and exertion, on 2 L saturation is 94% blood pressure last check was 140/70 respiratory rate is 16-18 heart rate is 66, labs from today reviewed, white cell count 10,600 hemoglobin and hematocrit is 10.2/33.3 platelet count of 3 and 37,000, d-dimer 1.09, chemistry is not back yet compared to yesterday potassium was 5.1 BUN/creatinine remains stable but elevated 61/1.67, patient remains on her liquids 2.5 mg 2 times a day along with the statins, Coreg, on flecainide, IV Solu-Medrol, bicarb and anti-inflammatory supplements 08/01/2021, overall respiratory Petrin remains stable, denies any cough or sputum production diarrhea stable, Chuck functions continued to be stable with slow improvement, we'll start tapering down the steroids 07/31/2021, patient seen eval examined during the rounds each and remains on 2 L oxygen denies any cough or sputum production denies genital pain and diarrhea is improved, currently patient is being treated with direct oral anticoagulant, IV steroids continue show High-dose IV steroids follow-up chest x-ray continued to show some basal infiltrate likely go with pneumonia 07/30/2021, patient seen eval examined on 2 L oxygen, complaining of mild shortness of breath intermittent cough denies any chest pain, has active COVID- 19 infection. Was a not complaining of any respiratory issues, and room air oxygen saturation dropped down to 89% on 2 L 93% patient is afebrile blood pressure 110/53 his diarrhea significantly improved currently patient is on the direct oral anticoagulant, now on IV heparin, oral Decadron once daily, his chest x-ray admission was negative for any infiltrate, BUN/creatinine improved to 70/2.2 Patient is a 81-year-old male who presented emergency department with ongoing complaint of diarrhea one day prior to coming into the hospital he was found for COVID-19 patient has the on and off exertional shortness of breath, and denies any hemoptysis denies any NSAID fever or chills, Past medical history significant for chronic atrial fibrillation, coronary artery disease status post CABG, COPD hypertension bladder cancer, status post urostomy, chronic kidney disease stage III, currently patient is being treated with the diabetic control anticoagulants, patient is a high risk for the complication with REM doesn't wear due to acute on chronic kidney disease currently being treated with dexamethasone 6 mg daily Objective - Vital Signs Vital signs: Vital Signs Temp 98.4 F 08/03/21 08:00 Pulse 62 08/03/21 14:00 Resp 18 08/03/21 14:00 BP 118/71 08/03/21 12:00 Pulse Ox 98 08/03/21 12:00 Intake & Output 08/02/21 08/03/21 08/03/21 18:59 06:59 18:59 Intake Total 120 240 240 Output Total 425 1175 Balance -305 -935 240 Intake: Oral 120 240 240 Output: Gastric Drainage 275 Urine 425 900 Other: Voiding Method Ileal Conduit (Left) Ileal Conduit (Left) Ileal Conduit (Left) - Exam - Constitutional General appearance: average body habitus, disheveled - EENT Eyes: EOMI, PERRLA Ears: bilateral: normal - Neck Neck: normal ROM Carotids: bilateral: upstroke normal - Respiratory Respiratory: bilateral: diminished - Cardiovascular Rhythm: regular Heart sounds: normal: S1, S2 - Neurologic Neurologic: CNII-XII intact - Musculoskeletal Musculoskeletal: generalized weakness - Psychiatric Psychiatric: A&O x's 3, appropriate affect - Labs CBC & Chem 7: 08/02/21 07:33 08/03/21 08:37 Labs: Abnormal Lab Results - Last 24 Hours (Table) 08/02/21 08/03/21 08/03/21 Range/Units 20:19 08:37 16:33 Sodium 146 H (137-145) mmol/L Chloride 116 H (98-107) mmol/L BUN 66 H (9-20) mg/dL Creatinine 1.60 H (0.66-1.25) mg/dL Glucose 117 H (74-99) mg/dL POC Glucose (mg/dL) 133 H 157 H (75-99) mg/dL Assessment and Plan Assessment: COVID-19 infection COVID-19 pneumonia COPD not in exacerbation Chronic atrial fibrillation Non-STEMI Acute on chronic renal failure Elevated d-dimer Ongoing nausea vomiting and diarrhea likely related to COVID-19 patient has been on liquid diet Coronary artery disease Hypertension and hypertensive on hold including VENKAT inhibitor's Dyslipidemia Plan: Continue deep breathing sense incentive spirometry Check in morning chest x-ray, continue Solu-Medrol, if remains stable we'll change to oral Decadron Continue gentle hydration and monitor observe renal functions closely. , Lately renal function appeared to have stabilized and a higher range Patient is not a candidate for IV REMdesivr at this time Continue anticoagulation with direct anticoagulants and monitor clinical course closely We'll follow closely Time with Patient: Greater than 30
--- NOTE | 2021-08-03 18:15 | P.PN ---
Progress Note - Text Progress Note Date: 08/03/21 Chief Complaint: Weak and tired This is a 81-year-old patient who follows with Dr. Santana. Chronic stable medical conditions include atrial fibrillation, CAD with a history of bypass, COPD, hypertension, bladder cancer with urostomy, chronic kidney disease stage III. Does live alone. Patient been having 6 days of significant vomiting and diarrhea. He was feeling exhausted by yesterday. Was been able to get up. Appetite has been poor. He tested positive for COVID-19 yesterday. She has been vaccinated. No loss of taste or smell. Patient last diarrhea was yesterday. Feeling a bit better after getting fluids in the ER. No fever no chills. No headaches. No chest pain. Denies shortness of breath. Patient denies wound of the abdomen for about 3 years near the urostomy bag. Admitted with severe nausea vomiting diarrhea secondary to COVID-19. Treated s ymptomatically. Troponin leak due to hemodynamic mismatch. Hypotensive. Given IV fluids. Acute kidney injury. Also atrial fibrillation with uncontrolled rate. July 29: Laying in bed. Feels a bit less diet. No further diarrhea. No nausea vomiting. Did eat some breakfast. In atrial fibrillation rate controlled. July 30: Feeling a bit better. Appetite improved. No diarrhea. Remains in A. fib with heart rate around 100. On 2 L nasal cannula. Seen by wound care team for his abdominal wound. July 31: Remains in atrial fibrillation. Rate controlled. Oral intake better, eating about 75%. Less diet. Breathing better. Abdominal wound growing Proteus mirabilis and staph aureus. August 01: Tired. Some shortness of breath. Atrial fibrillation rate controlled. Oral intake fair. Did sit out of bed. August 02: Potassium elevated. Given Kayexalate. IV Lasix ordered by a from. Eating some. Up in chair. August 03: Feels tired. Oral intake good. Up to bathroom. Sodium is going up. Will DC IV Lasix. PTOT consulted. Possible IpD rehab. Active Medications Acetaminophen (Acetaminophen Tab 325 Mg Tab) 650 mg PO Q6HR PRN PRN Reason: Mild Pain or Fever > 100.5 Alprazolam (Alprazolam 0.25 Mg Tab) 0.25 mg PO Q6HR PRN PRN Reason: Anxiety Apixaban (Apixaban 2.5 Mg Tablet) 2.5 mg PO BID [facility]; Protocol Last Admin: 08/03/21 09:47 Dose: 2.5 mg Documented by: Ascorbic Acid (Ascorbic Acid 500 Mg Tab) 500 mg PO BID [facility] Last Admin: 08/03/21 09:46 Dose: 500 mg Documented by: Aspirin (Aspirin 81 Mg) 81 mg PO DAILY [facility] Last Admin: 08/03/21 09:47 Dose: 81 mg Documented by: Atorvastatin Calcium (Atorvastatin 80 Mg Tab) 80 mg PO DAILY [facility] Last Admin: 08/03/21 09:47 Dose: 80 mg Documented by: Calcium Carbonate/Glycine (Calcium Carbonate 500 Mg Chewable) 1,000 mg PO Q4HR PRN PRN Reason: Dyspepsia Carvedilol (Carvedilol 3.125 Mg Tab) 3.125 mg PO BID [facility] Last Admin: 08/03/21 09:46 Dose: 3.125 mg Documented by: Cholecalciferol (Cholecalciferol 125 Mcg (5000 Iu) Tablet) 125 mcg PO DAILY [facility] Last Admin: 08/03/21 09:46 Dose: 125 mcg Documented by: Cyclobenzaprine HCl (Cyclobenzaprine 10 Mg Tab) 10 mg PO BID PRN PRN Reason: Muscle Spasm Ezetimibe (Ezetimibe 10 Mg Tab) 10 mg PO DAILY [facility] Last Admin: 08/03/21 09:47 Dose: 10 mg Documented by: Flecainide Acetate (Flecainide 50 Mg Tab) 50 mg PO BID [facility] Last Admin: 08/03/21 09:47 Dose: 50 mg Documented by: Dextrose/Water (Dextrose 5%-Water Iv Soln) 1,000 mls @ 50 mls/hr IV .Q20H [facility] Last Admin: 08/03/21 17:30 Dose: 50 mls/hr Documented by: Insulin Aspart (Insulin Aspart (Novolog) 100 Unit/Ml Vial) 0 unit SQ [facility]; Protocol Last Admin: 08/03/21 17:30 Dose: 3 unit Documented by: Isosorbide Mononitrate (Isosorbide Mononitrate Er 60 Mg Tab.Er.24h) 60 mg PO DAILY [facility] Last Admin: 08/03/21 09:47 Dose: 60 mg Documented by: Lactulose (Lactulose 20 Gm/30 Ml Cup) 20 gm PO DAILY PRN PRN Reason: Constipation Melatonin (Melatonin 3 Mg Tablet) 3 mg PO HS PRN PRN Reason: Insomnia Methylprednisolone Sodium Succinate (Methylprednisolone Sod Succi 40 Mg/Ml 1 Ml Vial) 40 mg IV Q12HR [facility] Last Admin: 08/03/21 09:47 Dose: 40 mg Documented by: Multi-Ingred Cream/Lotion/Oil/Oint (Hydrophilic Cream 180 Gm Tube) 1 applic TOPICAL DAILY [facility]; Protocol Last Admin: 08/03/21 09:48 Dose: 1 applic Documented by: Naloxone HCl (Naloxone 0.4 Mg/Ml 1 Ml Vial) 0.2 mg IV Q2M PRN PRN Reason: Opioid Reversal Nifedipine (Nifedipine Xl 60 Mg Tab.Er.24) 60 mg PO DAILY [facility] Last Admin: 08/03/21 09:46 Dose: 60 mg Documented by: Nitroglycerin (Nitroglycerin Sl Tabs 0.4 Mg Tab) 0.4 mg SUBLINGUAL Q5M PRN PRN Reason: Chest Pain Ondansetron HCl (Ondansetron 4 Mg/2 Ml Vial) 4 mg IVP Q8HR PRN PRN Reason: Nausea And Vomiting Zinc Sulfate (Zinc Sulfate 220 Mg Cap) 220 mg PO DAILY [facility] Last Admin: 08/03/21 09:47 Dose: 220 mg Documented by: Past medical history to include: Atrial fibrillation, CAD with bypass in 2004, COPD, hypertension, CK D stage III, bladder cancer with urostomy, Social history: Patient smoked for 64 years average about 2 packs a day stopped 3 years ago. Alcohol occasionally. 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 Family history: Kidney disease Physical examination: VITAL SIGNS: 98.4, 60, 18, 140s/70, 98% on 2 L GENERAL: Sitting at the edge bed, tired PSYCH: Alert and oriented x3; mood and affect normal NEUROLOGICAL: Cranial nerves grossly intact; no facial asymmetry, moving all 4 limbs Rest of exam per pulmonary and nursing INVESTIGATIONS, reviewed in the clinical context: August 03: Sodium 146 potassium 5.1 BUN 66 creatinine 1.6 August 02: White count 10.6 hemoglobin 10.2 potassium 5.7 BUN 64 creatinine 1.75 d-dimer 1.09 July 12: D-dimer 1.09 potassium 5.1 creatinine 1.67 July 11: Potassium 5 BUN 60 creatinine 1.67 July 10: D-dimer 0.97 potassium 4.5 BUN 65 creatinine 1.79 February 9: White count 3.5 hemoglobin 11.3 d-dimer 0.83 potassium 5 bicarb 18 BUN 70 creatinine 2.2 to July 28: White count 4.6 hemoglobin 9.4 platelets 219 LDL 29.1 Troponin I: 0.212, 0.182, 0.178 ABG: PO2 is 75 Admission labs: Potassium 5 BUN 93 creatinine 4.34 UA positive for leukoesterase, WBC, RBC Coronavirus [PCR]: Detected EKG tracing personally reviewed by me-normal sinus rhythm, atrial fibrillation with a rate of 110 Chest x-ray film personally reviewed by me-hyperinflation. Some infiltrate. 2-D echocardiogram. Moderate concentric LVH. EF 50-55%. Assessment and plan: -Acute severe nausea vomiting diarrhea secondary to COVID-19: Improved Diet advanced -COVID-19, in a previously vaccinated patient Initial pulse ox was 90%. Changed to oral prednisone -Abdominal wound present for 3 years.: Cultures positive for Proteus mirabilis and staph aureus Being followed by wound care team -Positive troponin likely due to hemodynamic mismatch No clinical evidence of acute coronary syndrome -Persistent atrial fibrillation with rapid ventricular rate: Rate controlled Telemetry. IV heparin-changed to eliquis. Flecainide. Coreg 3.125 mg twice a day. -CAD with a prior history of bypass in 2004 Aspirin, Lipitor, Zetia, Coreg -Hypotensive from volume loss from nausea vomiting diarrhea decreased appetite: Better Hold off VENKAT inhibitor. -COPD in a previous smoker IV Solu-Medrol -Hyperlipidemia Crestor 40 mg daily -Normocytic anemia likely of chronic kidney disease -IV heparin monitoring: Discontinued Follow PTT -Chronic kidney disease stage III at baseline, from nephrosclerosis Follow renal function -Acute kidney injury, prerenal from nausea vomiting diarrhea: Improving Admission creatinine 4.34. Creatinine down to 1.75 -Hyperkalemia from CK D Renal diet. Kayexalate. -Mild hypernatremia from free water deficit DC IV Lasix Change IV Solu-Medrol to oral prednisone. DC IV Lasix. PTOT. Looking at inpatient rehab. Hopefully discharge in 24 hours.
[2021-08-03] MEDS: predniSONE 20 MG TAB PO SCH (18:39)
[2021-08-03 20:00] LABS: Glucose,Whole Blood 135 mg/dL (75-99)
[2021-08-04 04:59] VITALS: RESP 18
[2021-08-04 06:08] LABS: Glucose,Whole Blood 145 mg/dL (75-99)
[2021-08-04] MEDS: INSULIN ASPART (NovoLOG) 100 UNIT/ML VIAL SQ SCH ×2 (06:38→11:54)
[2021-08-04 08:01] LABS: Calcium 9.8 mg/dL (8.4-10.2); Magnesium 1.7 mg/dL (1.6-2.3); Potassium 4.9 mmol/L (3.5-5.1)
--- NOTE | 2021-08-04 08:45 | P.PN ---
Subjective Patient is seen in follow-up for acute kidney injury. On room air. Blood pressure stable. No vomiting or diarrhea. Lasix stopped yesterday by the primary team. Nonoliguric. Has a urostomy. Currently on D5W for hypernatremia. Sodium level better. Vital signs are stable. General: Resting in bed. HEENT: Head exam is unremarkable. LUNGS: Breath sounds decreased. HEART: Rate and Rhythm are regular. ABDOMEN: No distention. Urostomy noted. EXTREMITITES: No edema. Objective - Vital Signs Vital signs: Vital Signs Temp 97.5 F L 08/04/21 04:00 Pulse 54 L 08/04/21 04:00 Resp 18 08/04/21 04:00 BP 152/68 08/04/21 04:00 Pulse Ox 93 L 08/04/21 04:00 Intake & Output 08/03/21 08/04/21 08/04/21 18:59 06:59 18:59 Intake Total 240 Output Total 600 250 Balance -360 -250 Intake: Oral 240 Output: Urine 600 250 Other: Voiding Method Ileal Conduit (Left) Ileal Conduit (Left) - Labs CBC & Chem 7: 08/02/21 07:33 08/04/21 06:20 Labs: Abnormal Lab Results - Last 24 Hours (Table) 08/03/21 08/03/21 08/03/21 Range/Units 08:37 16:33 19:58 Sodium 146 H (137-145) mmol/L Chloride 116 H (98-107) mmol/L BUN 66 H (9-20) mg/dL Creatinine 1.60 H (0.66-1.25) mg/dL Glucose 117 H (74-99) mg/dL POC Glucose (mg/dL) 157 H 135 H (75-99) mg/dL 08/04/21 08/04/21 Range/Units 06:07 06:20 Sodium (137-145) mmol/L Chloride 115 H (98-107) mmol/L BUN 66 H (9-20) mg/dL Creatinine 1.44 H (0.66-1.25) mg/dL Glucose 128 H (74-99) mg/dL POC Glucose (mg/dL) 145 H (75-99) mg/dL Assessment and Plan Plan: Assessment: 1. Acute kidney injury mostly prerenal secondary to hypovolemia and hypotension. Creatinine was 4.34 on admission and is 1.44 today. Unknown baseline renal function. 2. Acute hypoxic respiratory failure secondary to COVID-19 infection. 3. Metabolic acidosis secondary to acute kidney injury and IV fluids. Improved. 4. History of bladder scan continues status post cystectomy. Has urostomy. 5. Mild volume overload. Improved with diuresis. 6. Benign hypertension. 7. Mild hypomagnesemia from poor intake and diuresis. Plan: Stop D5W. Encouraged oral intake, including free water. Avoid nephrotoxins. Continue to monitor renal function and urine output. Follow-up chest x-ray. Add oral magnesium oxide.
[2021-08-04] MEDS ORDERED: MAGNESIUM OXIDE 400 MG TAB PO SCH (09:00)
[2021-08-04] MEDS: ASCORBIC ACID 500 MG TAB PO SCH (09:11)
[2021-08-04] MEDS: predniSONE 20 MG TAB PO SCH (09:11)
[2021-08-04] MEDS: ASPIRIN 81 MG PO SCH (09:12)
[2021-08-04] MEDS: ATORVASTATIN 80 MG TAB PO SCH (09:12)
[2021-08-04] MEDS: ZINC SULFATE 220 MG CAP PO SCH (09:12)
[2021-08-04] MEDS: ISOSORBIDE MONONITRATE ER 60 MG TAB.ER.24H PO SCH (09:12)
[2021-08-04] MEDS: FLECAINIDE 50 MG TAB PO SCH (09:12)
[2021-08-04] MEDS: CHOLECALCIFEROL 125 MCG (5000 IU) TABLET PO SCH (09:12)
[2021-08-04] MEDS: EZETIMIBE 10 MG TAB PO SCH (09:12)
[2021-08-04] MEDS: APIXABAN 2.5 MG TABLET PO SCH (09:12)
[2021-08-04] MEDS: carvediloL 3.125 MG TAB PO SCH (09:12)
[2021-08-04] MEDS: HYDROPHILIC CREAM 180 GM TUBE TOPICAL SCH (09:13)
--- NOTE | 2021-08-04 09:52 | XR ---
EXAMINATION TYPE: XR chest 1V DATE OF EXAM: 08/04/2021 COMPARISON: 07/30/2021 HISTORY: Cough TECHNIQUE: Single frontal view of the chest is obtained. FINDINGS: Heart size is normal and there is postoperative change. Subsegmental changes at the right lung base. Underlying COPD noted. Diffuse osteopenia. Arthropathy of the shoulders. IMPRESSION: COPD with right basilar atelectasis or early infiltrate similar to prior exam.
[2021-08-04 10:24] VITALS: TEMP 97.8
[2021-08-04 11:47] LABS: Glucose,Whole Blood 88 mg/dL (75-99)
--- NOTE | 2021-08-04 12:52 | P.CONS ---
History of Present Illness - Chief Complaint Medical debility - History of Present Illness I had the opportunity to see patient for inpatient rehab consultation with regard to medical debility. Patient admitted to [facility] July 27 with diarrhea, UTI and Covid positive, to Dr. Carrillo. Seen by cardiology for known cardiac disease and non-STEMI. Seen by Dr. Perez for acute kidney injury. Seen by Dr. Junaid Burnham Covid pneumonia. Also seen by wound care for urostomy chest x-rays followed for COPD and right base atelectasis versus infiltrate. PT reports supervision for bed mobility, transfers, gait 52 feet with roller walker. OT reports complete independent with basic self-care tasks. Previous functional history as elicited from patient: 81-year-old right-handed white male who is lives in one floor home alone. Retired. Describes independent with own cooking, laundry, driving, sponge bath and gait with out device but does have roller walker at home. PCP Dr. Santana. Denies tobacco but admits to occasional drink. Review of Systems Review of systems: ENT: Denies sneezes or discharge. Eyes: Denies discharge or photophobia. Cardiac: Denies chest pain or palpitation. Pulmonary: Mild shortness of breath. Gastrointestinal: Denies nausea, emesis, constipation, diarrhea. Genitourinary: Denies discharge or frequency. Musculoskeletal: Denies muscle or bone aches. Neurologic: Mild. Endocrine: Denies shakes or sweats. Oncology: Denies cancers. Dermatologic: Denies rash, itching, pruritus. ALLERGY/immunology: Denies sneezes, rashes. Past Medical History Past Medical History: Atrial Fibrillation, Coronary Artery Disease (CAD), Cancer, COPD, Hypertension, Pneumonia, Renal Disease Additional Past Medical History / Comment(s): Bladder cancer with urostomy, bronchitis, bilateral lower leg edema, CKD III, past UTI, low iron, History of Any Multi-Drug Resistant Organisms: None Reported Past Surgical History: Bladder Surgery, Cholecystectomy, Coronary Bypass/CABG Additional Past Surgical History / Comment(s): Cystectomy/urostomy, colonoscopy, 3V CABG/bovine valve in 2004, bilateral blepharoplasties, bilateral cataract removals. Past Anesthesia/Blood Transfusion Reactions: No Reported Reaction Additional Past Anesthesia/Blood Transfusion Reaction / Comm: Pt has received blood in past without reaction. Smoking Status: Former smoker - Past Family History Father History Unknown: Yes Additional Family Medical History / Comment(s): Father drowned. Mother Family Medical History: Renal Disease Additional Family Medical History / Comment(s): Mother of renal failure. Medications and Allergies Home Medications Medication Instructions Recorded Confirmed Type Ezetimibe [Zetia] 10 mg PO DAILY 07/27/21 07/28/21 History Fenofibric Acid (Choline) 135 mg PO DAILY 07/27/21 07/28/21 History [Trilipix] Ferrous Sulfate [Iron (65 MG 325 mg PO DAILY 07/27/21 07/27/21 History Elemental)] Flecainide [Tambocor] 50 mg PO BID 07/27/21 07/28/21 History Isosorbide Mononitrate ER [Imdur] 60 mg PO DAILY 07/27/21 07/28/21 History Rosuvastatin Calcium [Crestor] 40 mg PO DAILY 07/27/21 07/28/21 History carvediloL [Coreg] 3.125 mg PO BID 07/27/21 07/28/21 History Albuterol Inhaler [Ventolin Hfa 2 puff INHALATION RT-Q4H PRN 07/28/21 07/28/21 History Inhaler] Cyclobenzaprine [Flexeril] 10 mg PO BID PRN 07/28/21 07/28/21 History NIFEdipine XL [Procardia XL] 60 mg PO DAILY 07/28/21 07/28/21 History Nitroglycerin Sl Tabs [Nitrostat] 0.4 mg SUBLINGUAL Q5M PRN 07/28/21 07/28/21 History Apixaban [Eliquis] 2.5 mg PO BID 30 Days #60 tablet 07/31/21 Rx Ascorbic Acid [Vitamin C] 500 mg PO BID #60 tab 08/04/21 Rx Cholecalciferol [Vitamin D3 (125 125 mcg PO DAILY #30 tablet 08/04/21 Rx Mcg = 5000 Iu)] Zinc Sulfate [Orazinc] 220 mg PO DAILY #30 cap 08/04/21 Rx predniSONE 10 mg PO DAILY #30 tab 08/04/21 Rx Allergies Allergy/AdvReac Type Severity Reaction Status Date / Time sulfamethoxazole Allergy Unknown Verified 07/27/21 20:36 [From Bactrim] tetanus and diphtheria Allergy Swelling Verified 07/27/21 20:36 toxoids at injection site(arm) trimethoprim [From Bactrim] Allergy Unknown Verified 07/27/21 20:36 Physical Exam Vitals: Vital Signs Temp Pulse Resp BP BP Pulse Ox 08/04/21 08:00 97.8 F 57 L 18 132/62 95 08/04/21 04:00 97.5 F L 54 L 18 152/68 93 L 08/04/21 02:00 51 L 16 08/04/21 00:00 97.6 F 51 L 16 145/69 96 08/03/21 19:48 70 18 08/03/21 19:45 97.8 F 70 18 124/64 96 08/03/21 16:00 71 18 125/65 97 08/03/21 14:00 62 18 Intake and Output 08/03/21 08/04/21 08/04/21 22:59 06:59 14:59 Intake Total 420 Output Total 600 250 Balance -600 -250 420 Intake: Oral 420 Output: Urine 600 250 Other: Voiding Method Ileal Conduit (Left) Ileal Conduit (Left) Ileal Conduit (Left) Weight 86.183 kg Skin: Atrophic, intact. General: Medium build and comfortable appearance. Head: Normocephalic, atraumatic. Eyes: Symmetric. Pupils equal round. Ears: Symmetric. Hearing within normal limits. Mouth: Clear. Neck: Supple. Carotid without bruit. Cardiac: Regular rate and rhythm. Lungs: Clear anteriorly and posteriorly. Abdomen: Soft active nontender. Extremities: Normal tone. Neurological: Mental status: Alert, cooperative, pleasant. Cranial nerves: Symmetric facial tone and trapezius. Motor: Normal strength and isolation all 4 limbs. Sensation: Intact throughout. DTRs: Symmetric and equal throughout. Mobility: Patient reports independent in room today including to bathroom. Nurse reports supervision or standby assist for same. Results CBC & Chem 7: 08/02/21 07:33 08/04/21 06:20 Labs: Abnormal Lab Results - Last 24 Hours (Table) 08/03/21 08/03/21 08/04/21 Range/Units 16:33 19:58 06:07 Chloride (98-107) mmol/L BUN (9-20) mg/dL Creatinine (0.66-1.25) mg/dL Glucose (74-99) mg/dL POC Glucose (mg/dL) 157 H 135 H 145 H (75-99) mg/dL 08/04/21 Range/Units 06:20 Chloride 115 H (98-107) mmol/L BUN 66 H (9-20) mg/dL Creatinine 1.44 H (0.66-1.25) mg/dL Glucose 128 H (74-99) mg/dL POC Glucose (mg/dL) (75-99) mg/dL Assessment and Plan (1) Acute diarrhea Current Visit: Yes Status: Acute Code(s): R19.7 - DIARRHEA, UNSPECIFIED SNOMED Code(s): 780935339 (2) Acute kidney injury Current Visit: Yes Status: Acute Code(s): N17.9 - ACUTE KIDNEY FAILURE, UN SPECIFIED SNOMED Code(s): 04788030 (3) COVID-19 Current Visit: Yes Status: Acute Code(s): U07.1 - COVID-19 SNOMED Code(s): 070183488 (4) NSTEMI (non-ST elevated myocardial infarction) Current Visit: Yes Status: Acute Code(s): I21.4 - NON-ST ELEVATION (NSTEMI) MYOCARDIAL INFARCTION SNOMED Code(s): 44681867 (5) Non-pressure chronic ulcer of skin of other sites limited to breakdown of skin Current Visit: Yes Status: Acute Code(s): L98.491 - NON-PRS CHRONIC ULCER SKIN/ SITES LIMITED TO BRKDWN SKIN SNOMED Code(s): 65600930 (6) Urinary tract infection Current Visit: Yes Status: Acute Code(s): N39.0 - URINARY TRACT INFECTION, SITE NOT SPECIFIED SNOMED Code(s): 36136564 Plan: Comments and plan: At this time patient is demonstrating independence in room per PT and OT evaluations. Is doing well and would not meet insurance criteria for inpatient rehab. Discussed with yourself and affect are considering discharge home today which would currently seem appropriate.
[2021-08-04 13:07] VITALS: BP 143/55; PULSE 85
--- NOTE | 2021-08-04 22:35 | P.DS ---
Providers Date of admission: 07/27/21 21:51 Expected date of discharge: 08/04/21 Attending physician: Lemuel Carrillo Consults: 07/27/21 21:51 Consult Physician Urgent Consulting Provider: [facility] Consult Reason/Comments: Elevated troponin Do you want consulting provider notified?: Yes 07/28/21 15:20 Consult Physician Routine Consulting Provider: Svitlana Perez Consult Reason/Comments: ckd Do you want consulting provider notified?: Yes 07/28/21 18:16 Consult Physician Routine Consulting Provider: Perez Quiroga Consult Reason/Comments: COVID 19 Do you want consulting provider notified?: Yes 08/03/21 18:16 Consult Physician Routine Consulting Provider: Rajinder Jarrett Consult Reason/Comments: [facility] re[facility] Do you want consulting provider notified?: Yes Primary care physician: [facility] Course: Chief Complaint: Weak and tired This is a 81-year-old patient who follows with Dr. Santana. Chronic stable medical conditions include atrial fibrillation, CAD with a history of bypass, COPD, hypertension, bladder cancer with urostomy, chronic kidney disease stage III. Does live alone. Patient been having 6 days of significant vomiting and diarrhea. He was feeling exhausted by yesterday. Was been able to get up. Appetite has been poor. He tested positive for COVID-19 yesterday. She has been vaccinated. No loss of taste or smell. Patient last diarrhea was yesterday. Feeling a bit better after getting fluids in the ER. No fever no chills. No headaches. No chest pain. Denies shortness of breath. Patient denies wound of the abdomen for about 3 years near the urostomy bag. Admitted with severe nausea vomiting diarrhea secondary to COVID-19. Treated symptomatically. Troponin leak due to hemodynamic mismatch. Hypotensive. Given IV fluids. Acute kidney injury. Also atrial fibrillation with uncontrolled rate. Started on eliquis. Dexamethasone. Patient rightly improved. Increasing activity.Abdominal wound present for 3 years.: Cultures positive for Proteus mirabilis and staph aureus-Being followed by wound care team [outpatient followed by dermatology] August 04: Patient did really well. Ambulating the hallway. Will be going home. With home care. Discussed with patient. Eating well. Prednisone taper. Discussion and discharge planning more than 35 minutes Past medical history to include: Atrial fibrillation, CAD with bypass in 2004, COPD, hypertension, CK D stage III, bladder cancer with urostomy, Social history: Patient smoked for 64 years average about 2 packs a day stopped 3 years ago. Alcohol occasionally. 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 Family history: Kidney disease Physical examination: VITAL SIGNS: 97.8, 57, 18, 1 32 x 62, 95% room air GENERAL: Sitting at the edge bed, comfortable PSYCH: Alert and oriented x3; mood and affect normal NEUROLOGICAL: Cranial nerves grossly intact; no facial asymmetry, moving all 4 limbs Rest of exam per pulmonary and nursing INVESTIGATIONS, reviewed in the clinical context: August 04: Potassium 4.9 creatinine 1.44 Troponin I: 0.212, 0.182, 0.178 ABG: PO2 is 75 Admission labs: Potassium 5 BUN 93 creatinine 4.34 UA positive for leukoesterase, WBC, RBC Coronavirus [PCR]: Detected EKG tracing personally reviewed by me-normal sinus rhythm, atrial fibrillation with a rate of 110 Chest x-ray film personally reviewed by me-hyperinflation. Some infiltrate. 2-D echocardiogram. Moderate concentric LVH. EF 50-55%. Assessment and plan: -Acute severe nausea vomiting diarrhea secondary to COVID-19: Improved Diet advanced -COVID-19, in a previously vaccinated patient Initial pulse ox was 90%. Changed to oral prednisone -Abdominal wound present for 3 years.: Cultures positive for Proteus mirabilis and staph aureus Being followed by wound care team. Outpatient follow-up with dermatology -Positive troponin likely due to hemodynamic mismatch No clinical evidence of acute coronary syndrome -Persistent atrial fibrillation with rapid ventricular rate: Rate controlled Telemetry. IV heparin-changed to eliquis. Flecainide. Coreg 3.125 mg twice a day. -CAD with a prior history of bypass in 2004 Aspirin, Lipitor, Zetia, Coreg -Hypotensive from volume loss from nausea vomiting diarrhea decreased appetite: Better Hold off VENKAT inhibitor. -COPD in a previous smoker IV Solu-Medrol -Hyperlipidemia Crestor 40 mg daily -Normocytic anemia likely of chronic kidney disease -IV heparin monitoring: Discontinued Follow PTT -Chronic kidney disease stage III at baseline, from nephrosclerosis Follow renal function -Acute kidney injury, prerenal from nausea vomiting diarrhea: Improving Admission creatinine 4.34. Creatinine down to 1.44 -Hyperkalemia from CK D Renal diet. Kayexalate. -Mild hypernatremia from free water deficit DC IV Lasix Disposition: Home Plan - Discharge Summary Discharge Rx Participant: No New Discharge Prescriptions: New Cholecalciferol [Vitamin D3 (125 Mcg = 5000 Iu)] 125 mcg PO DAILY #30 tablet Apixaban [Eliquis] 2.5 mg PO BID 30 Days #60 tablet Zinc Sulfate [Orazinc] 220 mg PO DAILY #30 cap predniSONE 10 mg PO DAILY #30 tab Ascorbic Acid [Vitamin C] 500 mg PO BID #60 tab Continue Ezetimibe [Zetia] 10 mg PO DAILY carvediloL [Coreg] 3.125 mg PO BID Rosuvastatin Calcium [Crestor] 40 mg PO DAILY Albuterol Inhaler [Ventolin Hfa Inhaler] 2 puff INHALATION RT-Q4H PRN PRN Reason: Shortness Of Breath NIFEdipine XL [Procardia XL] 60 mg PO DAILY Isosorbide Mononitrate ER [Imdur] 60 mg PO DAILY Fenofibric Acid (Choline) [Trilipix] 135 mg PO DAILY Flecainide [Tambocor] 50 mg PO BID Ferrous Sulfate [Iron (65 MG Elemental)] 325 mg PO DAILY Cyclobenzaprine [Flexeril] 10 mg PO BID PRN PRN Reason: Muscle Spasm Nitroglycerin Sl Tabs [Nitrostat] 0.4 mg SUBLINGUAL Q5M PRN PRN Reason: Chest Pain Discontinued Aspirin EC [Ecotrin Low Dose] 81 mg PO DAILY Potassium Chloride [Potassium Chloride ER] 8 meq PO DAILY lisinopriL [Zestril] 40 mg PO DAILY Furosemide [Lasix] 40 mg PO BID Fluticasone Nasal [place] [Flonase Nasal [place]] 1 spray EA NOSTRIL DAILY Ipratropium-Albuterol Nebulize [Duoneb 0.5 mg-3 mg/3 ml Soln] 3 ml INHALATION RT-Q6H PRN PRN Reason: Shortness Of Breath Discharge Medication List Ezetimibe [Zetia] 10 mg PO DAILY 07/27/21 [History] Fenofibric Acid (Choline) [Trilipix] 135 mg PO DAILY 07/27/21 [History] Ferrous Sulfate [Iron (65 MG Elemental)] 325 mg PO DAILY 07/27/21 [History] Flecainide [Tambocor] 50 mg PO BID 07/27/21 [History] Isosorbide Mononitrate ER [Imdur] 60 mg PO DAILY 07/27/21 [History] Rosuvastatin Calcium [Crestor] 40 mg PO DAILY 07/27/21 [History] carvediloL [Coreg] 3.125 mg PO BID 07/27/21 [History] Albuterol Inhaler [Ventolin Hfa Inhaler] 2 puff INHALATION RT-Q4H PRN 07/28/21 [History] Cyclobenzaprine [Flexeril] 10 mg PO BID PRN 07/28/21 [History] NIFEdipine XL [Procardia XL] 60 mg PO DAILY 07/28/21 [History] Nitroglycerin Sl Tabs [Nitrostat] 0.4 mg SUBLINGUAL Q5M PRN 07/28/21 [History] Apixaban [Eliquis] 2.5 mg PO BID 30 Days #60 tablet 07/31/21 [Rx] Ascorbic Acid [Vitamin C] 500 mg PO BID #60 tab 08/04/21 [Rx] Cholecalciferol [Vitamin D3 (125 Mcg = 5000 Iu)] 125 mcg PO DAILY #30 tablet 08/04/21 [Rx] Zinc Sulfate [Orazinc] 220 mg PO DAILY #30 cap 08/04/21 [Rx] predniSONE 10 mg PO DAILY #30 tab 08/04/21 [Rx] Follow up Appointment(s)/Referral(s): Piero Cannon DO [STAFF PHYSICIAN] - 2 Weeks (Office will call to set up a follow-up appointment) Maurice Santana MD [Primary Care Provider] - 08/13/21 8:30 am (Office will call if there is an opening sooner.) [facility], [NON-STAFF] - (Home care will be in contact.) Perez Quiroga MD [STAFF PHYSICIAN] - 1 Week (Office is closed; please call to set up a follow-up appointment. ) Aristeo Marina DO [STAFF PHYSICIAN] - 08/20/21 9:40 am ([facility]: [address] [place] [address]) Patient Instructions/Handouts: Coronavirus Disease 2019 (COVID-19) Activity/Diet/Wound Care/Special Instructions: Sylvester gottlieb at [facility] - copay will be $80 - if patient goes to rehab please give patient free coupon and $10 copay card - if he goes home please send these to pharmacy Discharge Disposition: HOME SELF-CARE
== END 2021-08-04 17:13 | disposition home or self-care (01) | DRG 177 ==
LOC: EC 19:09 → 3SCARD 21:51
PROVIDERS: ADMIT Hospitalist; ATTEND Hospitalist
DX: U07.1 COVID-19 (principal); I21.A1 Myocardial infarction type 2; E87.0 Hyperosmolality and hypernatremia; E87.2 Acidosis; I48.19 Other persistent atrial fibrillation; N17.9 Acute kidney failure, unspecified; N13.6 Pyonephrosis; B96.4 Proteus (mirabilis) (morganii) as the cause of diseases classified elsewhere; N18.30 Chronic kidney disease, stage 3 unspecified; D63.1 Anemia in chronic kidney disease; E78.5 Hyperlipidemia, unspecified; E83.42 Hypomagnesemia; E86.1 Hypovolemia; E87.5 Hyperkalemia; E87.70 Fluid overload, unspecified; F17.200 Nicotine dependence, unspecified, uncomplicated; F41.9 Anxiety disorder, unspecified; G47.00 Insomnia, unspecified; I25.10 Atherosclerotic heart disease of native coronary artery without angina pectoris; K52.9 Noninfective gastroenteritis and colitis, unspecified; K59.00 Constipation, unspecified; L98.491 Non-pressure chronic ulcer of skin of other sites limited to breakdown of skin; Z79.01 Long term (current) use of anticoagulants; Z79.82 Long term (current) use of aspirin; Z79.899 Other long term (current) drug therapy; Z85.51 Personal history of malignant neoplasm of bladder; Z87.440 Personal history of urinary (tract) infections; Z93.6 Other artificial openings of urinary tract status; Z95.1 Presence of aortocoronary bypass graft; Z95.3 Presence of xenogenic heart valve; Z95.828 Presence of other vascular implants and grafts; Z88.1 Allergy status to other antibiotic agents; Z88.2 Allergy status to sulfonamides; I12.9 Hypertensive chronic kidney disease with stage 1 through stage 4 chronic kidney disease, or unspecified chronic kidney disease; I95.9 Hypotension, unspecified; J44.9 Chronic obstructive pulmonary disease, unspecified; I71.9 Aortic aneurysm of unspecified site, without rupture
CPT/HCPCS: 36415; 36600; 71045; 71046; 76770; 80048; 80053; 80061; 81001; 82805; 83605; 83735; 84132; 84484; 85025; 85379; 85610; 85730; 87070; 87077; 87086; 87186; 87205; 87635; 93005; 93306; 94760; 96360; 96361; 99285

== ENCOUNTER → 2021-09-29 | Outpatient (CLI) | payer MEDICARE | END | disposition home or self-care (01) | LOC: RADMRIMAIN 11:33 | PROVIDERS: ATTEND Urology | DX: Z53.9 Procedure and treatment not carried out, unspecified reason (principal); N13.30 Unspecified hydronephrosis; C67.9 Malignant neoplasm of bladder, unspecified ==

== ENCOUNTER 2021-11-07 18:40 | Emergency (ER) | payer MEDICARE ==
--- NOTE | 2021-11-07 20:07 | ED ---
General Adult HPI - General Chief complaint: Wound/Laceration Stated complaint: bleeding from incision Time Seen by Provider: 11/07/21 19:03 Source: patient, EMS Mode of arrival: EMS Limitations: no limitations - History of Present Illness Initial comments: Patient is an 81-year-old male presenting with chief complaint of wound dehiscence. Patient states that he had what he describes as a bowel resection approximately 2-3 weeks ago performed at [facility], he is currently being cared for in a correction until he is able to return home. Patient states that today when he was watching television he looked down and saw blood on his shirt, he noticed that part of his wound had come apart. Near the distal end of the incision there is also some pus, patient states that that has been going on for quite some time and he has been told that it will resolve eventually. He denies any abdominal pain, nausea, vomiting, chest pain, shortness of breath, fever, chills. - Related Data Home Medications Medication Instructions Recorded Confirmed Ezetimibe [Zetia] 10 mg PO DAILY 07/27/21 11/07/21 carvediloL [Coreg] 6.25 mg PO DAILY 07/27/21 11/07/21 NIFEdipine XL [Procardia XL] 60 mg PO DAILY 07/28/21 11/07/21 Aspirin 81 mg PO DAILY 11/07/21 11/07/21 Atorvastatin [Lipitor] 80 mg PO HS 11/07/21 11/07/21 Fenofibrate,Micronized 200 mg PO DAILY 11/07/21 11/07/21 Furosemide [Lasix] 40 mg PO BID@0600,1200 11/07/21 11/07/21 Lactose-Reduced Food [Ensure Plus] 1 can PO DAILY 11/07/21 11/07/21 Levofloxacin [Levaquin] 500 mg PO DAILY 11/07/21 11/07/21 Melatonin 10 mg PO HS 11/07/21 11/07/21 Omeprazole 20 mg PO BID 11/07/21 11/07/21 Potassium Chloride ER [K-Dur 10] 10 meq PO BID@0900,1700 11/07/21 11/07/21 lisinopriL [Zestril] 40 mg PO DAILY 11/07/21 11/07/21 Previous Rx's Medication Instructions Recorded Apixaban [Eliquis] 2.5 mg PO BID 30 Days #60 tablet 07/31/21 Allergies Allergy/AdvReac Type Severity Reaction Status Date / Time sulfamethoxazole Allergy Unknown Verified 11/07/21 20:48 [From Bactrim] tetanus and diphtheria Allergy Swelling Verified 11/07/21 20:48 toxoids at injection site(arm) trimethoprim [From Bactrim] Allergy Unknown Verified 11/07/21 20:48 Review of Systems ROS Statement: Those systems with pertinent positive or pertinent negative responses have been documented in the HPI. ROS Other: All systems not noted in ROS Statement are negative. Past Medical History Past Medical History: Atrial Fibrillation, Coronary Artery Disease (CAD), Cancer, COPD, Hypertension, Pneumonia, Renal Disease Additional Past Medical History / Comment(s): Bladder cancer with urostomy, bronchitis, bilateral lower leg edema, CKD III, past UTI, low iron, History of Any Multi-Drug Resistant Organisms: None Reported Past Surgical History: Bladder Surgery, Cholecystectomy, Coronary Bypass/CABG Additional Past Surgical History / Comment(s): Cystectomy/urostomy, colonoscopy, 3V CABG/bovine valve in 2004, bilateral blepharoplasties, bilateral cataract removals. Past Anesthesia/Blood Transfusion Reactions: No Reported Reaction Additional Past Anesthesia/Blood Transfusion Reaction / Comment(s): Pt has received blood in past without reaction. Past Psychological History: No Psychological Hx Reported Smoking Status: Former smoker Past Alcohol Use History: None Reported Past Drug Use History: None Reported - Past Family History Father History Unknown: Yes Additional Family Medical History / Comment(s): Father drowned. Mother Family Medical History: Renal Disease Additional Family Medical History / Comment(s): Mother of renal failure. General Exam Limitations: no limitations General appearance: alert, in no apparent distress Head exam: Present: atraumatic, normocephalic, normal inspection Eye exam: Present: normal appearance, EOMI. Absent: scleral icterus Respiratory exam: Present: normal lung sounds bilaterally. Absent: respiratory distress, wheezes, rales, rhonchi, stridor Cardiovascular Exam: Present: regular rate, normal rhythm, normal heart sounds. Absent: systolic murmur, diastolic murmur, rubs, gallop, clicks GI/Abdominal exam: Present: soft, normal bowel sounds. Absent: distended, tenderness, guarding, rebound, rigid Neurological exam: Present: alert, oriented X3, CN II-XII intact Psychiatric exam: Present: normal affect, normal mood Skin exam: Present: warm, dry, intact, normal color. Absent: rash Course Vital Signs 11/07/21 11/07/21 11/07/21 18:43 21:23 22:44 Temperature 98.7 F 98.8 F Pulse Rate 68 56 L 95 Respiratory 16 18 18 Rate Blood Pressure 111/61 111/74 129/71 O2 Sat by Pulse 95 96 Oximetry Medical Decision Making - Medical Decision Making Patient is a 81-year-old male presenting for chief complaint of wound dehiscence. Approximately 2-3 weeks ago he had what he describes as a possible bowel resection performed at [facility] by Dr. Matamoros. Today the patient noticed some bleeding over his incision near the epigastric region. On examination there is a small approximately 1 cm area of wound dehiscence, bleeding is seen from the site. Lab work shows anemia with hemoglobin of 8.4, 10 point to a previous visit. Patient has known kidney disease, creatinine is 2.32 and BUN is 41, he is given 1 L normal saline fluid bolus. CT shows small air-fluid collection along the lower abdominal wall adjacent to the left side ostomy. No bowel obstruction or significant pneumoperitoneum. Mild bibasilar opacities with trace pleural effusions. Abdominal aortic aneurysm. I discussed these findings with my attending Dr. Mar, he advised discharge with Steri- Strips placed over the wound and follow-up with his surgeon. Steri-Strips are placed and 2 x 2 gauze dressing was applied over the wound. Follow-up with your surgeon as soon as possible. Follow-up with PCP this week. Report back to ER if any worsening symptoms. Educated on return parameters and alarm symptoms. I answered all questions. Patient conveyed verbal understanding and agreed to the plan. I discussed this case with my attending Dr. Mar - Lab Data Result diagrams: 11/07/21 20:23 11/07/21 20:23 Lab Results 11/07/21 11/07/21 Range/Units 20: 20:23 WBC 8.4 (3.8-10.6) k/uL RBC 2.71 L (4.30-5.90) m/uL Hgb 8.4 L (13.0-17.5) gm/dL Hct 27.8 L (39.0-53.0) % MCV 102.6 H (80.0-100.0) fL MCH 31.0 (25.0-35.0) pg MCHC 30.3 L (31.0-37.0) g/dL RDW 14.9 (11.5-15.5) % Plt Count 380 (150-450) k/uL MPV 8.0 Neutrophils % 65 % Lymphocytes % 17 % Monocytes % 8 % Eosinophils % 8 % Basophils % 1 % Neutrophils # 5.4 (1.3-7.7) k/uL Lymphocytes # 1.4 (1.0-4.8) k/uL Monocytes # 0.7 (0-1.0) k/uL Eosinophils # 0.7 (0-0.7) k/uL Basophils # 0.1 (0-0.2) k/uL Hypochromasia Moderate Macrocytosis Slight Sodium 138 (137-145) mmol/L Potassium 5.2 H (3.5-5.1) mmol/L Chloride 109 H (98-107) mmol/L Carbon Dioxide 29 (22-30) mmol/L Anion Gap 0 mmol/L BUN 41 H (9-20) mg/dL Creatinine 2.32 H (0.66-1.25) mg/dL Est GFR (CKD-EPI)AfAm 29 (>60 ml/min/1.73 sqM) Est GFR (CKD-EPI)NonAf 25 (>60 ml/min/1.73 sqM) Glucose 100 H (74-99) mg/dL Calcium 9.0 (8.4-10.2) mg/dL Total Bilirubin 0.3 (0.2-1.3) mg/dL AST 35 (17-59) U/L ALT 13 (4-49) U/L Alkaline Phosphatase 44 (38-126) U/L Total Protein 5.1 L (6.3-8.2) g/dL Albumin 2.3 L (3.5-5.0) g/dL Disposition Clinical Impression: Wound dehiscence Disposition: HOME SELF-CARE Condition: Good Instructions (If sedation given, give patient instructions): Wound Dehiscence (ED), Steristrips (ED) Additional Instructions: Follow up with your surgeon as soon as possible. At this time your wound is superficial, keep Steri-Strips on until instructed by surgeon to remove them. Follow-up with your PCP this week. Report back to ER if any worsening symptoms. Is patient prescribed a controlled substance at d/c from ED?: No Referrals: Maurcie Santana MD [Primary Care Provider] - 1-2 days Time of Disposition: 22:25
[2021-11-07 21:00] LABS: Basophils # (A) 0.1 k/uL (0-0.2); Basophils % (A) 1 %; Eosinophils # (A) 0.7 k/uL (0-0.7); Eosinophils % (A) 8 %; HCT 27.8 % (39.0-53.0); HGB 8.4 gm/dL (13.0-17.5); Hypochromasia Moderate; Lymphocytes # (A) 1.4 k/uL (1.0-4.8); Lymphocytes % (A) 17 %; MCHC 30.3 g/dL (31.0-37.0); MCV 102.6 fL (80.0-100.0); Macrocytosis Slight; Monocytes # (A) 0.7 k/uL (0-1.0); Monocytes % (A) 8 %; Neutrophils # (A) 5.4 k/uL (1.3-7.7); Neutrophils % (A) 65 %; Platelet Count 380 k/uL (150-450); RBC 2.71 m/uL (4.30-5.90); RDW 14.9 % (11.5-15.5); WBC 8.4 k/uL (3.8-10.6)
[2021-11-07 21:10] LABS: Albumin 2.3 g/dL (3.5-5.0); Total Bilirubin 0.3 mg/dL (0.2-1.3); Total Protein 5.1 g/dL (6.3-8.2)
[2021-11-07 21:16] LABS: Potassium 5.2 mmol/L (3.5-5.1)
[2021-11-07 21:24] VITALS: RESP 18
[2021-11-07] MEDS ORDERED: SODIUM CHLORIDE 0.9% 1,000 ML IV ONE (21:59)
--- NOTE | 2021-11-07 22:06 | CT ---
EXAMINATION TYPE: CT abdomen pelvis wo con DATE OF EXAM: 11/07/2021 COMPARISON: None available HISTORY: bleeding from urostomy CT DLP: 660.2 mGycm Automated exposure control for dose reduction was used. TECHNIQUE: Helical acquisition of images was performed from the lung bases through the pelvis. FINDINGS: LUNG BASES: Mild bibasilar opacities. Trace pleural effusions. LIVER/GB: No significant abnormality is appreciated. PANCREAS: No significant abnormality is seen. SPLEEN: No significant abnormality is seen. ADRENALS: No significant abnormality is seen. KIDNEYS: No significant abnormality is seen. FREE AIR: No free air is visualized RETROPERITONEAL ADENOPATHY: None visualized REPRODUCTIVE ORGANS: No significant abnormality is seen URINARY BLADDER: Absent and compatible with cystostomy. PELVIC ADENOPATHY: None visualized. OSSEOUS STRUCTURES: No significant abnormality is seen. BOWEL: 2.2 x 1.9 cm air-fluid collection within the mid anterior lower abdominal wall predominantly along the fascia. Adjacent left-sided ostomy noted. No bowel obstruction or significant pneumoperiton eum. Anasarca seen. OTHER: Advanced atherosclerotic disease with 3.6 cm infrarenal abdominal aortic aneurysm. Bilateral c ommon iliac kissing stents seen. IMPRESSION: SMALL AIR-FLUID COLLECTION ALONG THE LOWER ABDOMINAL WALL ADJACENT TO THE LEFT SIDE AT OSTOMY. NO BOWEL OBSTRUCTION OR SIGNIFICANT PNEUMOPERITONEUM. MILD BIBASILAR OPACITIES WITH TRACE PLEURAL EFFUSIONS. ABDOMINAL AORTIC ANEURYSM. ADDITIONAL CHRONIC AND INCIDENTAL FINDINGS ABOVE.
[2021-11-07 22:45] VITALS: BP 129/71; PULSE 95; TEMP 98.8
== END 2021-11-07 23:45 | disposition home or self-care (01) ==
LOC: EC 18:40
DX: T81.30XA Disruption of wound, unspecified, initial encounter (principal); I10 Essential (primary) hypertension; J44.9 Chronic obstructive pulmonary disease, unspecified; Z87.891 Personal history of nicotine dependence; Z88.2 Allergy status to sulfonamides; Z88.7 Allergy status to serum and vaccine
CPT/HCPCS: 36415; 74176; 80053; 85025; 96360; 99284